=== PATIENT | female | born 1935 | race Caucasian/White ===

== ENCOUNTER 2016-11-08 11:33 | Emergency (ER) | payer MEDICARE, OTHER ==
[2016-11-08 11:45] VITALS: BP 176/81
[2016-11-08] MEDS ORDERED: Sodium Chloride 0.9% 5 ML Syringe FLUSH PRN (12:05)
--- NOTE | 2016-11-08 12:29 | EDM.PDOC ---
ED HPI GENERAL MEDICAL PROBLEM - General Chief Complaint: General Stated Complaint: L ARM PAIN,ELEVATED BP Time Seen by Provider: 11/08/16 12:22 Source of Information: Reports: Patient History Limitations: Reports: No Limitations - History of Present Illness INITIAL COMMENTS - FREE TEXT/NARRATIVE: PT STATES SHE HAS FELT WEAK OVER PAST FEW DAYS AND DEVELOPED HEADACHE AND SOME BLURRY VISION 2 DAYS AGO THAT HAS PERSISTED. JORGE LOCATED AT FOREHEAD AND DESCRIBED ACHING. BP FOUND TO BE ELEVATED TODAY. DOES NOT TYPICALLY GET HEADACHES. DENIES FEVER, FALL, HEAD INJURY, FACIAL NUMBNESS, CP, SOB, OR N/V. Onset: Gradual Duration: Day(s): Location: Reports: Head Quality: Reports: Ache Severity: Mild Improves with: Reports: None Worsens with: Reports: None Associated Symptoms: Reports: Headaches, Weakness. Denies: Chest Pain, Diaphoresis, Fever/Chills, Nausea/Vomiting, Shortness of Breath, Syncope - Related Data Allergies Allergy/AdvReac Type Severity Reaction Status Date / Time codeine Allergy Rash Verified 11/08/16 11:55 minocycline Allergy Cannot Verified 11/08/16 11:55 Remember Penicillins Allergy Rash Verified 11/08/16 11:55 METAL Allergy Rash Uncoded 11/08/16 11:55 Home Meds: Home Meds Aspirin [Halfprin] 81 mg PO DAILY 01/23/14 [History] Cholecalciferol (Vitamin D3) [Vitamin D-3] 2,000 units PO DAILY 01/23/14 [ History] Donepezil HCl [Aricept] 20 mg PO DAILY 01/23/14 [History] Lactobacillus Combination No.4 [Probiotic] 4 mg PO DAILY 01/23/14 [History] Pramipexole Di-HCl [Mirapex] 1.5 mg PO ACBED 01/23/14 [History] Primidone [Mysoline] 150 mg PO BID 01/23/14 [History] Propranolol [Inderal LA] 60 mg PO BEDTIME 01/23/14 [History] Colestipol [Colestipol HCl] 2 gm PO BID 11/08/16 [History] Cyanocobalamin (Vitamin B-12) [B-12] 500 mcg PO DAILY 11/08/16 [History] Furosemide [Lasix] 20 mg PO DAILY 11/08/16 [History] Ketoconazole [Nizoral 2% Shampoo] 1 applic TOP DAILY 11/08/16 [History] Loperamide [Imodium] 2 mg PO DAILY 11/08/16 [History] Mirtazapine [Remeron] 30 mg PO BEDTIME 11/08/16 [History] Vit A/Vit C/Vit E/Zinc/Copper [Preservision Areds Softgel] 1 cap PO BID [History] Past Medical History HEENT History: Reports: Cataract, Macular Degeneration, Other (See Below) Other HEENT History: myopia Cardiovascular History: Reports: Heart Murmur, High Cholesterol, Hypertension Gastrointestinal History: Reports: Other (See Below) Other Gastrointestinal History: lymphocytic colitis Musculoskeletal History: Reports: Arthritis, Osteoarthritis, Other (See Below) Other Musculoskeletal History: knee pain, bilateral leg pain Neurological History: Reports: Other (See Below) Other Neuro History: cognitive dysfunction,essential tremors, restless leg syndrome. Psychiatric History: Reports: Depression Endocrine/Metabolic History: Reports: Osteopenia Hematologic History: Reports: Other (See Below) Other Hematologic History: elevated ferritin Dermatologic History: Reports: Other (See Below) Other Dermatologic History: seborrheic keratoses - Past Surgical History Head Surgeries/Procedures: Reports: None HEENT Surgical History: Reports: Cataract Surgery Cardiovascular Surgical History: Reports: None Musculoskeletal Surgical History: Reports: Arthroscopic Knee, Other (See Below) Social & Family History - Family History Family Medical History: Noncontributory - Tobacco Use Smoking Status *Q: Never Smoker Second Hand Smoke Exposure: No - Caffeine Use Caffeine Use: Reports: Coffee - Alcohol Use Days Per Week of Alcohol Use: 7 Number of Drinks Per Day: 1 Total Drinks Per Week: 7 - Recreational Drug Use Recreational Drug Use: No ED ROS GENERAL - Review of Systems Review Of Systems: ROS reveals no pertinent complaints other than HPI. Constitutional: Reports: No Symptoms HEENT: Reports: No Symptoms Respiratory: Reports: No Symptoms Cardiovascular: Reports: No Symptoms Endocrine: Reports: No Symptoms GI/Abdominal: Reports: Diarrhea (OF CHRONIC NATURE) : Reports: No Symptoms Musculoskeletal: Reports: No Symptoms Skin: Reports: No Symptoms Neurological: Reports: Headache, Weakness. Denies: Numbness, Pre-Existing Deficit, Syncope, Tingling, Trouble Speaking Psychiatric: Reports: No Symptoms Hematologic/Lymphatic: Reports: No Symptoms Immunologic: Reports: No Symptoms ED EXAM, GENERAL - Physical Exam Exam: See Below Exam Limited By: No Limitations General Appearance: Alert, WD/WN, No Apparent Distress Eye Exam: Bilateral Eye: Normal Inspection Nose: Normal Inspection Throat/Mouth: Normal Inspection, Normal Oropharynx, No Airway Compromise Head: Atraumatic, Normocephalic Neck: Normal Inspection, Supple Respiratory/Chest: No Respiratory Distress, Lungs Clear, Normal Breath Sounds Cardiovascular: Regular Rate, Rhythm, Diastolic Murmur GI/Abdominal: Normal Bowel Sounds, Soft, Non-Tender Back Exam: Normal Inspection. No: CVA Tenderness (L), CVA Tenderness (R) Extremities: Normal Inspection, No Pedal Edema Neurological: Alert, Oriented, CN II-XII Intact, Normal Cognition, No Motor/ Sensory Deficits Psychiatric: Normal Affect, Normal Mood Skin Exam: Warm, Dry, Intact, Normal Color, No Rash Course - Vital Signs Last Recorded V/S: Last Vital Signs Temp 98 F 11/08/16 11:40 Pulse 83 11/08/16 11:40 Resp 22 H 11/08/16 11:40 BP 176/81 H 11/08/16 11:40 Pulse Ox 93 L 11/08/16 11:40 - Orders/Labs/Meds Orders: Active Orders 24 hr Category Date Time Status Peripheral IV Care [RC] . DIRECTED Care 11/08/16 12:05 Active Head wo Cont [CT] Stat Exams 11/08/16 12:22 Ordered BASIC METABOLIC PANEL,BMP [CHEM] Stat Lab 11/08/16 12:00 Received COMPREHENSIVE METABOLIC PN,CMP [CHEM] Stat Lab 11/08/16 12:22 Ordered URINALYSIS W/MICROSCOPIC [UA W/MICROSCOPIC] [URIN] Stat Lab 11/08/16 12:04 Uncollected Sodium Chloride 0.9% [Syrex Flush] Med 11/08/16 12:05 Active 5 ml FLUSH Q8HR PRN Peripheral IV Insertion Adult [OM.PC] Routine Oth 11/08/16 12:05 Ordered Medication Orders Sodium Chloride (Syrex Flush) 5 ml FLUSH Q8HR PRN PRN Reason: Keep Vein Open Labs: Laboratory Tests 11/08/16 Range/Units 12:00 WBC 4.3 L (5.0-10.0) 10^3/uL RBC 3.90 (3.80-5.50) 10^6/uL Hgb 11.9 L (12.0-16.0) g/dL Hct 40.6 (37.0-47.0) % MCV 104.0 H (82.0-92.0) fL MCH 30.4 (27.0-31.0) pg MCHC 29.2 L (32.0-36.0) g/dL RDW 13.8 (11.5-14.5) % Plt Count 164 (150-300) 10^3/uL MPV 7.2 L (7.4-10.4) fL Neut % (Auto) 56.0 (50.0-70.0) % Lymph % (Auto) 31.0 (20.0-40.0) % Tripp % (Auto) 8.4 H (2.0-8.0) % Eos % (Auto) 4.2 H (1.0-3.0) % Baso % (Auto) 0.4 (0.0-1.0) % Neut # (Auto) 2.4 L (2.5-7.0) 10^3/uL Lymph # (Auto) 1.3 (1.0-4.0) 10^3/uL Tripp # (Auto) 0.4 (0.1-0.8) 10^3/uL Eos # (Auto) 0.2 (0.1-0.3) 10^3/uL Baso # (Auto) 0.0 (0.0-0.1) 10^3/uL Meds: Medications Generic Name Dose Route Start Last Admin Trade Name Freq PRN Reason Stop Dose Admin Sodium Chloride 5 ml 11/08/16 12:05 Syrex Flush FLUSH Q8HR PRN Keep Vein Open - Radiology Interpretation Free Text/Narrative:: ct head shows no acute findings CT Results Date: 11/08/16 - Re-Assessments/Exams Free Text/Narrative Re-Assessment/Exam: 11/08/16 13:30 PT AFEBRILE, NONTOXIC APPEARING, VSS, BP 140'S /70'S, JORGE RESOLVED Departure - Departure Time of Disposition: 13:31 Disposition: Home, Self-Care 01 Clinical Impression: Hypertension screening Headache Qualifiers: Headache type: unspecified Headache chronicity pattern: acute headache Intractability: not intractable Qualified Code(s): R51 - Headache Hypertension Qualifiers: Hypertension type: unspecified Qualified Code(s): I10 - Essential (primary) hypertension - Discharge Information Instructions: Hypertension, General Headache Without Cause, [id number] Referrals: Shobha Wood, [employer] [Primary Care Provider] - Additional Instructions: FOLLOW UP AT [facility] IN 1- 2 DAYS. RETURN TO ER SOONER IF SYMPTOMS CONTINUE - My Orders Last 24 Hours: My Active Orders 11/08/16 12:00 BASIC METABOLIC PANEL,BMP [CHEM] Stat 11/08/16 12:04 URINALYSIS W/MICROSCOPIC [UA W/MICROSCOPIC] [URIN] Stat 11/08/16 12:05 Peripheral IV Care [RC] . DIRECTED Sodium Chloride 0.9% [Syrex Flush] 5 ml FLUSH Q8HR PRN Peripheral IV Insertion Adult [OM.PC] Routine 11/08/16 12:22 Head wo Cont [CT] Stat COMPREHENSIVE METABOLIC PN,CMP [CHEM] Stat - Assessment/Plan Last 24 Hours: My Active Orders 11/08/16 12:00 BASIC METABOLIC PANEL,BMP [CHEM] Stat 11/08/16 12:04 URINALYSIS W/MICROSCOPIC [UA W/MICROSCOPIC] [URIN] Stat 11/08/16 12:05 Peripheral IV Care [RC] . DIRECTED Sodium Chloride 0.9% [Syrex Flush] 5 ml FLUSH Q8HR PRN Peripheral IV Insertion Adult [OM.PC] Routine 11/08/16 12:22 Head wo Cont [CT] Stat COMPREHENSIVE METABOLIC PN,CMP [CHEM] Stat Assessment:: HTN HEADACHE Plan: F/U WITH PCP IN 2 DAYS
[2016-11-08 12:53] LABS: CHLORIDE,CL 103 mmol/L (98-115); SODIUM,NA 140 mmol/L (136-145)
[2016-11-08] MEDS ORDERED: Ketorolac 30 MG/ML SDV IVPUSH ONE (13:26)
== END 2016-11-08 13:42 | disposition home or self-care (01) ==
LOC: KA.ED 11:33
DX: I10 Essential (primary) hypertension (principal); R51 Headache; E78.00 Pure hypercholesterolemia, unspecified; M19.90 Unspecified osteoarthritis, unspecified site; Z79.82 Long term (current) use of aspirin; Z79.899 Other long term (current) drug therapy
CPT/HCPCS: 70450; 80053; 81001; 85025; 96374; 99284; J1885; 99283

== ENCOUNTER 2017-01-13 23:46 | Inpatient (IN) | payer MEDICARE, OTHER ==
--- NOTE | 2017-01-13 23:58 | EDM.PDOC ---
ED HPI GENERAL MEDICAL PROBLEM - General Chief Complaint: General Stated Complaint: fall Time Seen by Provider: 01/13/17 23:51 Source of Information: Reports: Patient, EMS, EMS Notes Reviewed History Limitations: Reports: No Limitations - History of Present Illness INITIAL COMMENTS - FREE TEXT/NARRATIVE: PATIENT IS A 81-YEAR-OLD FEMALE WHO PRESENTS TO THE EMERGENCY DEPARTMENT VIA EMS WITH A COMPLAINT OF LEFT HIP PAIN. PATIENT RESIDES IN [facility]. PATIENT STATES THAT SHE SLIPPED ON CARPET AND FELL DOWN 3 STAIRS. SHE ENDED UP ON LANDING BETWEEN 2 STAIRCASES. PATIENT WAS ABLE TO CRAWL BACK UP TO 3 STAIRS AND INTO HER APARTMENT, WHICH IS A SHORT DISTANCE AWAY. PATIENT THEN GOT INTO BED, BUT PAIN IN THE LEFT HIP PERSISTED, SO SHE CONTACTED NURSING ASSISTANCE. NURSING STAFF WAS ABLE TO ACCESS APARTMENT, EVALUATE PATIENT, AND CONTACT EMS. PATIENT DENIES SYNCOPAL EPISODE, HEAD INJURY , NECK PAIN, CHEST PAIN, SHORTNESS OF BREATH, NAUSEA, VOMITING, OR ANY OTHER PAIN OR INJURY OTHER THAN LEFT HIP. Onset: Today Onset Date: 01/13/17 Onset Time: 21:00 Duration: Hour(s): Location: Reports: Pelvis, Lower Extremity, Left Quality: Reports: Ache, Throbbing Severity: Mild Improves with: Reports: None Worsens with: Reports: Movement Context: Reports: Trauma Associated Symptoms: Reports: No Other Symptoms - Related Data Allergies Allergy/AdvReac Type Severity Reaction Status Date / Time codeine Allergy Rash Verified 01/13/17 23:59 minocycline Allergy Cannot Verified 01/13/17 23:59 Remember Penicillins Allergy Rash Verified 01/13/17 23:59 ear drops Allergy Rash Uncoded 01/13/17 23:59 metal Allergy Rash Uncoded 01/13/17 23:59 ED ROS GENERAL - Review of Systems Review Of Systems: ROS reveals no pertinent complaints other than HPI. Constitutional: Reports: No Symptoms HEENT: Reports: No Symptoms Respiratory: Reports: No Symptoms Cardiovascular: Reports: No Symptoms Endocrine: Reports: No Symptoms GI/Abdominal: Reports: No Symptoms : Reports: No Symptoms Musculoskeletal: Reports: Leg Pain (LEFT HIP). Denies: Neck Pain, Back Pain Skin: Reports: No Symptoms Neurological: Reports: No Symptoms Psychiatric: Reports: No Symptoms Hematologic/Lymphatic: Reports: No Symptoms Immunologic: Reports: No Symptoms ED EXAM, GENERAL - Physical Exam Exam: See Below Exam Limited By: No Limitations General Appearance: Alert, WD/WN, No Apparent Distress Eye Exam: Bilateral Eye: Normal Inspection Nose: Normal Inspection, No Blood Throat/Mouth: Normal Inspection, Normal Oropharynx, No Airway Compromise Head: Atraumatic, Normocephalic Neck: Normal Inspection, Supple, Non-Tender, Full Range of Motion Respiratory/Chest: No Respiratory Distress, Lungs Clear, Normal Breath Sounds, No Accessory Muscle Use, Chest Non-Tender Cardiovascular: Regular Rate, Rhythm, No Murmur GI/Abdominal: Normal Bowel Sounds, Soft, Non-Tender Back Exam: Normal Inspection. No: CVA Tenderness (L), CVA Tenderness (R) Extremities: No Pedal Edema, Normal Capillary Refill, Leg Pain (LEFT HIP/no ecchymosis, edema, erythema, extremity shortening or rotation, or deformity noted.) Neurological: Alert, Oriented, CN II-XII Intact, Normal Cognition, No Motor/ Sensory Deficits Psychiatric: Normal Affect, Normal Mood Skin Exam: Warm, Dry, Intact, Normal Color, No Rash, Ecchymosis (RIGHT MEDIAL MALLEOLUS) Course - Orders/Labs/Meds Orders: Active Orders 24 hr Category Date Time Status Hip Min 2V or 3V Lt [CR] Stat Exams 01/13/17 23:52 Ordered Pelvis 1V or 2V [CR] Stat Exams 01/13/17 23:52 Ordered - Radiology Interpretation Free Text/Narrative:: X-RAY OF RIGHT ANKLE, LEFT HIP AND PELVIS NEGATIVE FOR ACUTE FRACTURE - Re-Assessments/Exams Free Text/Narrative Re-Assessment/Exam: 01/14/17 01:25 PATIENT AFEBRILE, NONTOXIC APPEARING, VITAL SIGNS STABLE. PAIN RELIEVED WITH MORPHINE. PATIENT ABLE TO STAND BUT AMBULATION IS UNCOMFORTABLE. CASE DISCUSSED WITH DR. AMALIA SIMON AND THE PATIENT WILL BE ADMITTED FOR OBSERVATION. Departure - Departure Time of Disposition: 01:27 Disposition: Refer to Observation Condition: Fair Clinical Impression: Fall (on) (from) other stairs and steps, initial encounter Contusion of hip Qualifiers: Encounter type: initial encounter Laterality: left Qualified Code(s): S70.02XA - Contusion of left hip, initial encounter - Discharge Information - My Orders Last 24 Hours: My Active Orders 01/13/17 23:52 Hip Min 2V or 3V Lt [CR] Stat Pelvis 1V or 2V [CR] Stat - Assessment/Plan Last 24 Hours: My Active Orders 01/13/17 23:52 Hip Min 2V or 3V Lt [CR] Stat Pelvis 1V or 2V [CR] Stat Assessment:: FALL, LEFT HIP PAIN.
[2017-01-14] MEDS ORDERED: Morphine 2 MG/ML Syringe IVPUSH ONE (00:26)
[2017-01-14] MEDS ORDERED: Ondansetron 4 MG/2 ML SDV IVPUSH ONE (00:26)
[2017-01-14] MEDS: Morphine 2 MG/ML Syringe IVPUSH PRN ×2 (08:52→12:46)
--- NOTE | 2017-01-14 11:53 | PCM.HP ---
H&P History of Present Illness - General Date of Service: 01/14/17 Admit Problem/Dx: Pubic rami fracture, inability to ambulate Source of Information: Patient, Family, Old Records, Provider (Jose Calvert, ED provider) History Limitations: Reports: No Limitations - History of Present Illness Initial Comments - Free Text/Narative: Ms. Rosario is an 81yoF who was walking down a flight of stairs in her home at [facility] in [place] and sustained a fall down three stairs on 01/13/17 around 2100. She immediately complained of pain in her left hip and right anklem but was able to crawl back up the three stairs into her apartment and got into bed. Due to persistent pain, she contacted nursing staff who called EMS and transported her to [facility]. In the ED, she continued to report pain in the left hip and right ankle. Initial XR of pelvis and L hip were read as "Left acetabulum and proximal femur unremarkable. Unable to exclude nondisplaced fracture inferior pubic ramus." XR ankle consistent with sprain. She was given morphine for pain and due to living alone and being unable to ambulate, was admitted in observation status for monitoring. This morning, I received the finalized reports for the XR of pelvis and L hip showing "Left sided pubic rami fractures, age indeterminate; correlation with physical exam would be helpful." Upon evaluation of her this morning, she continues to complain of significant pain in her left hip region and points to her lower buttock. Exacerbated by sitting on her left buttock, including on the toilet. Also having some right ankle pain, but feels this is improved since last night. Otherwise feels stiff and sore, but no other localized areas of pain or decreased range of motion. Denies any numbness or tingling. She denied any hitting of her head or LOC associated with the fall yesterday. Left Hip Pain Score (Numeric/FACES): 3 - Related Data Allergies/Adverse Reactions: Allergies Allergy/AdvReac Type Severity Reaction Status Date / Time codeine Allergy Rash Verified 01/13/17 23:59 minocycline Allergy Cannot Verified 01/13/17 23:59 Remember Penicillins Allergy Rash Verified 01/13/17 23:59 ear drops Allergy Rash Uncoded 01/13/17 23:59 metal Allergy Rash Uncoded 01/13/17 23:59 Home Medications: Home Meds Aspirin [Adult Low Dose Aspirin EC] 81 mg PO DAILY 01/14/17 [History] Calcium Carbonate [Calcium] 600 mg PO DAILY 01/14/17 [History] Cholecalciferol (Vitamin D3) [Vitamin D] 2,000 unit PO DAILY 01/14/17 [History] Colestipol HCl [Colestipol HCl] 1 gm PO BID 01/14/17 [History] Cyanocobalamin (Vitamin B12) [Vitamin B12] 500 mg PO DAILY 01/14/17 [History] Donepezil HCl 20 mg PO DAILY 01/14/17 [History] Furosemide 20 mg PO DAILY 01/14/17 [History] L.acidoph,Paracasei, B.lactis [Probiotic] 1 each PO DAILY 01/14/17 [History] Loperamide [Imodium] 4 mg PO DAILY 01/14/17 [History] Mirtazapine 30 mg PO BEDTIME 01/14/17 [History] [place]-3/DHA/Epa/Fish Oil [Fish Oil 1,000 mg Softgel] 1 each PO DAILY 01/14/17 [ History] Pramipexole Di-HCl [Mirapex] 1.5 mg PO DAILY 01/14/17 [History] Primidone 150 mg PO BID 01/14/17 [History] Propranolol [Inderal LA] 60 mg PO DAILY 01/14/17 [History] Vit A/Vit C/Vit E/Zinc/Copper [Preservision Areds Softgel] 1 tab PO DAILY [History] Past Medical History HEENT History: Reports: Impaired Vision Cardiovascular History: Reports: High Cholesterol, Hypertension Gastrointestinal History: Reports: Chronic Diarrhea HEAD OF DRAMA History: Reports: Other OB/BYN History: 3 children Neurological History: Reports: Other (See Below) Other Neuro History: Restless Leg Syndrome, Essential Tremor Psychiatric History: Reports: Depression, Other (See Below) Other Psychiatric History: Mild Cognitive Impairment Endocrine/Metabolic History: Reports: Osteoporosis - Past Surgical History Cardiovascular Surgical History: Reports: None GI Surgical History: Reports: Other (See Below) Other GI Surgeries/Procedures: stimulation implant Social & Family History - Family History Family Medical History: Unobtainable - Tobacco Use Smoking Status *Q: Never Smoker Second Hand Smoke Exposure: No - Caffeine Use Caffeine Use: Reports: Coffee - Alcohol Use Days Per Week of Alcohol Use: 7 Number of Drinks Per Day: 1 Total Drinks Per Week: 7 - Recreational Drug Use Recreational Drug Use: No H&P Review of Systems - Review of Systems: Review Of Systems: See Below General: Denies: Fever, Chills, Decreased Appetite, Weight Loss, Weight Gain HEENT: Denies: Hearing Changes, Vertigo, Visual Changes Pulmonary: Denies: Shortness of Breath, Pleuritic Chest Pain, Cough Cardiovascular: Denies: Chest Pain, Palpitations, Edema Gastrointestinal: Reports: Diarrhea. Denies: Abdominal Pain, Constipation, Nausea Genitourinary: Denies: Dysuria, Burning, Pain Musculoskeletal: Reports: Leg Pain, Foot Pain, Muscle Pain. Denies: Neck Pain, Shoulder Pain, Arm Pain, Back Pain, Hand Pain Skin: Denies: Rash, Erythema, Wound Psychiatric: Denies: Confusion, Depression, Anxiety Neurological: Reports: Tremors, Difficulty Walking, Gait Disturbance. Denies: Confusion, Dizziness, Headache, Numbness, Paresthesia, Syncope, Tingling, Change in Speech Exam - Exam Exam: See Below - Vital Signs Vital Signs: Last Vital Signs Temp 37.2 C 01/14/17 07:00 Pulse 87 01/14/17 07:00 Resp 16 01/14/17 07:00 BP 115/58 L 01/14/17 07:00 Pulse Ox 94 L 01/14/17 07:00 Weight: 75.16 kg - Exam Physical Exam Comments:: GENERAL: Elderly white female lying in hospital bed in no acute distress. HEENT: Normocephalic, atraumatic. Conjunctiva clear, pupils equal round and reactive to light, extraocular movements intact. Nares patent without discharge. Mucous membranes moist, posterior pharynx unremarkable. NECK: Supple, no masses. CV: Regular rate and rhythm, no murmurs, rubs, or gallops. 2+ radial and pedal pulses. PULMONARY: Normal effort, clear to auscultation bilaterally, no wheezes, rales, or rhonchi. ABDOMEN: Positive bowel sounds, soft, nontender, nondistended. EXTREMITIES: No edema, cyanosis, or clubbing. MUSCULOSKELETAL: Lower extremities in line without shortening or rotation. Tenderness overlying left inferior pubic rami and medial right ankle. Remainder of lower extremities without localized bony tenderness to palpation. No midline spine tenderness. Bilateral shoulders, elbows, and wrists with grossly normal ROM and no tenderness to palpation. NEUROLOGICAL: No obvious deficits. DERMATOLOGIC: Ecchymosis overlying left lateral knee. PSYCHIATRIC: Alert, interactive, appropriate affect. - Patient Data Result Diagrams: 01/14/17 13:29 *Q Meaningful Use (ADM) - VTE *Q VTE Criteria *Q: - Stroke *Q Stroke Criteria *Q: - AMI *Q AMI Criteria *Q: Problem List Initiated/Reviewed/Updated: Yes Orders Last 24hrs: Active Orders 24 hr Category Date Time Status Consult to Physical Therapy [PT Evaluation and Cons 01/14/17 11:46 Active Treatment] [CONS] Routine Aspirin [Halfprin] Med 01/15/17 09:00 Ordered 81 mg PO DAILY Calcium Carbonate Med 01/15/17 09:00 Ordered 600 mg PO DAILY Cholecalciferol (Vitamin D3) [Vitamin D] Med 01/15/17 09:00 Ordered 2,000 unit PO DAILY Colestipol HCl Med 01/14/17 21:00 Ordered 1 gm PO BID Cyanocobalamin (Vitamin B12) [Vitamin B12] Med 01/15/17 09:00 Ordered 500,000 mcg PO DAILY Donepezil [Aricept] Med 01/15/17 09:00 Ordered 20 mg PO DAILY Furosemide [Lasix] Med 01/14/17 12:00 Ordered 20 mg PO DAILY Mirtazapine [Mirtazapine] Med 01/14/17 21:00 Ordered 30 mg PO BEDTIME Pramipexole Di-HCl [Mirapex] Med 01/15/17 21:00 Ordered 1.5 mg PO DAILY Primidone [Primidone] Med 01/14/17 21:00 Ordered 150 mg PO BID Propranolol [Inderal LA] Med 01/14/17 12:00 Ordered 60 mg PO DAILY Medication Orders Hydrocodone Bitart/Acetaminophen (Marion 325-5 Mg) 1 tab PO Q4H PRN PRN Reason: Pain Aspirin (Halfprin) 81 mg PO DAILY [facility] Cyanocobalamin (Vitamin B12) 500,000 mcg PO DAILY [facility] Donepezil HCl (Aricept) 20 mg PO DAILY [facility] Furosemide (Lasix) 20 mg PO DAILY [facility] Morphine Sulfate (Morphine) 2 mg IVPUSH Q2H PRN PRN Reason: Pain (severe 7-10) Last Admin: 01/14/17 08:52 Dose: 2 mg Non-Formulary Medication (Calcium Carbonate) 600 mg PO DAILY [facility] Non-Formulary Medication (Cholecalciferol (Vitamin D3) [Vitamin D]) 2,000 unit PO DAILY [facility] Non-Formulary Medication (Colestipol Hcl) 1 gm PO BID [facility] Non-Formulary Medication (Mirtazapine [Mirtazapine]) 30 mg PO BEDTIME [facility] Non-Formulary Medication (Pramipexole Di-Hcl [Mirapex]) 1.5 mg PO DAILY [facility] Non-Formulary Medication (Primidone [Primidone]) 150 mg PO BID [facility] Propranolol HCl (Inderal La) 60 mg PO DAILY [facility] Assessment/Plan Comment:: Ms. Rosario is an 81yoF who sustained a fall on the evening of 01/13/17 now found to have left pubic rami fractures and associated pain and inability to ambulate. She was initially admitted under observation status for monitoring and pain management prior to the XR showing the fractures, but will now be changed to inpatient status given her fractures and inability to ambulate requiring pain management, physical therapy, and discharge planning as she lives alone in an assisted living facility. # Left pubic rami fractures # Right ankle sprain Sustained on 01/13/17 in fall down 3 stairs in her home at [facility] in [place]. Nondisplaced fractures without neurovascular compromise or other indication for orthopedic referral. Will proceed with pain management with [place] as needed with morphine for breakthrough. Will use ice to affected areas. Physical therapy and mental health social worker consults placed to assess physical rehabilitation needs and assist with discharge planning. Chronic conditions: # HTN: Stable. Continue furosemide. # Chronic diarrhea: Stable. Continue colestipol and loperamide as needed instead of scheduled in the setting of opiate use. # HLD: Continue ASA. # B12 deficiency: Continue B12. # Osteoporosis: Continue Ca/D. # Essential tremor: Stable. Continue propranolol and primidone. # RLS: Stable. Continue pramipexole. # Depression: Stable. Continue mirtazepine. # MCI: Stable. Continue donepezil. Hospitalization details: # FEN: No IVF. Check BMP. Regular diet. # PPX: Enoxaparin for DVT ppx given moderate risk. Melatonin for delirium ppx. # Code status: FULL. # Emergency contact: Son. # Disposition: Admit to inpatient status for above issues. Anticipate at least 2 midnight stay for pain management and ambulation assistance.
[2017-01-14] MEDS ORDERED: Propranolol 60 MG Cap.ER PO SCH (12:00)
[2017-01-14] MEDS: Furosemide 20 MG Tab PO SCH (12:46)
[2017-01-14] MEDS ORDERED: Loperamide 2 MG Cap PO PRN (12:58)
[2017-01-14 14:02] LABS: CHLORIDE,CL 103 mmol/L (98-115); SODIUM,NA 137 mmol/L (136-145)
[2017-01-14] MEDS: Acetaminophen/HYDROcodone 325-5 MG Tab PO PRN ×2 (16:36→21:35)
[2017-01-14] MEDS: COLESTIPOL 1 GM PO SCH (21:03)
[2017-01-14] MEDS: PRIMIDONE 50 MG PO SCH (21:05)
[2017-01-14] MEDS: Melatonin 3 MG Tab PO SCH (21:08)
[2017-01-14] MEDS: Mirtazapine 15 MG Tab PO SCH (21:08)
[2017-01-15] MEDS: Acetaminophen/HYDROcodone 325-5 MG Tab PO PRN ×2 (06:27→10:27)
[2017-01-15] MEDS: Pramipexole 0.5 MG Tab PO SCH (08:21)
[2017-01-15] MEDS: Cyanocobalamin (Vitamin B12) 500 MCG Tab PO SCH (08:22)
[2017-01-15] MEDS: Aspirin 81 MG Tab.EC PO SCH (08:22)
[2017-01-15] MEDS: Furosemide 20 MG Tab PO SCH (08:22)
[2017-01-15] MEDS: Cholecalciferol (Vitamin D3) 1,000 Unit Tab PO SCH (08:22)
[2017-01-15] MEDS: Calcium Carbonate 500 MG Tab.Chew PO SCH (08:22)
[2017-01-15] MEDS: Donepezil 10 MG Tab PO SCH (08:22)
[2017-01-15] MEDS: Enoxaparin 30 MG/0.3 ML Syringe SUBCUT SCH (08:25)
[2017-01-15] MEDS: Propranolol 80 MG Cap.ER PO SCH (08:25)
[2017-01-15] MEDS: COLESTIPOL 1 GM PO SCH (08:27)
[2017-01-15] MEDS: PRIMIDONE 50 MG PO SCH ×2 (08:27→21:01)
[2017-01-15] MEDS ORDERED: Cyanocobalamin (Vitamin B12) 500 MCG Tab PO SCH (09:00)
--- NOTE | 2017-01-15 12:00 | PCM.PN ---
- General Info Date of Service: 01/15/17 Admission Dx/Problem (Free Text): Pubic rami fracture, inability to ambulate Subjective Update: Ms. Rosario has had interval improvement in pain since admission. Pain continues to be located in left buttock and mildly in right ankle. Using ice with good symptomatic improvement as well as [place]. Not needing morphine for breakthrough pain in the last 24hrs. She was able to be up in the chair and even ambulate a few steps earlier today. No new concerns have arisen. Nursing attempted oxygen liberation, but she continues to require 2lpm via nasal cannula. - Patient Data Vitals - Most Recent: Last Vital Signs Temp 37.2 C 01/15/17 06:55 Pulse 81 01/15/17 08:25 Resp 16 01/15/17 06:55 BP 108/64 01/15/17 08:25 Pulse Ox 94 L 01/15/17 06:55 Weight - Most Recent: 75.16 kg I&O - Last 24 Hours: Intake & Output 01/14/17 01/15/17 01/15/17 22:59 06:59 14:59 Intake Total 200 50 Output Total 100 Balance 100 50 Lab Results Last 24 Hours: Laboratory Results - last 24 hr 01/14/17 Range/Units 13:29 Sodium 137 (136-145) mmol/L Potassium 3.8 (3.3-5.3) mmol/L Chloride 103 (98-115) mmol/L Carbon Dioxide 26.9 (21.0-32.0) mmol/L BUN 18 (6-25) mg/dL Creatinine 0.88 (0.51-1.17) mg/dL Est Cr Clr Drug Dosing 36.01 mL/min Estimated GFR (MDRD) > 60 mL/min Glucose 147 H (70-110) mg/dL Calcium 8.2 L (8.7-10.3) mg/dL Med Orders - Current: Current Medications Acetaminophen (Tylenol Extra Strength) 500 mg PO Q6H [facility] Hydrocodone Bitart/Acetaminophen ([place] 325-5 Mg) 1 tab PO Q4H PRN PRN Reason: Pain Last Admin: 01/15/17 10:27 Dose: 1 tab Aspirin (Halfprin) 81 mg PO DAILY [facility] Last Admin: 01/15/17 08:22 Dose: 81 mg Calcium Carbonate/Glycine (Tums) 500 mg PO DAILY [facility] Last Admin: 01/15/17 08:22 Dose: 500 mg Cholecalciferol (Vitamin D3) 2,000 units PO DAILY [facility] Last Admin: 01/15/17 08:22 Dose: 2,000 units Cyanocobalamin (Vitamin B12) 500 mcg PO DAILY [facility] Last Admin: 01/15/17 08:22 Dose: 500 mcg Docusate Sodium (Colace) 100 mg PO BID PRN PRN Reason: Constipation Donepezil HCl (Aricept) 20 mg PO DAILY [facility] Last Admin: 01/15/17 08:22 Dose: 20 mg Enoxaparin Sodium (Lovenox) 30 mg SUBCUT DAILY [facility] Last Admin: 01/15/17 08:25 Dose: 30 mg Furosemide (Lasix) 20 mg PO DAILY [facility] Last Admin: 01/15/17 08:22 Dose: 20 mg Loperamide HCl (Imodium) 4 mg PO DAILY PRN PRN Reason: Diarrhea Melatonin (Melatonin) 3 mg PO BEDTIME [facility] Last Admin: 01/14/17 21:08 Dose: 3 mg Mirtazapine (Remeron) 30 mg PO BEDTIME [facility] Last Admin: 01/14/17 21:08 Dose: 30 mg Primidone 50 Mg Tabs (*Pt Own Med*) 0 mg PO BID [facility] Last Admin: 01/15/17 08:27 Dose: 150 mg Pramipexole Dihydrochloride (Mirapex) 1.5 mg PO DAILY [facility] Last Admin: 01/15/17 08:21 Dose: 1.5 mg Propranolol HCl (Inderal La) 80 mg PO DAILY [facility] Last Admin: 01/15/17 08:25 Dose: 80 mg Discontinued Medications Cyanocobalamin (Vitamin B12) 500,000 mcg PO DAILY [facility] Morphine Sulfate (Morphine) 2 mg IVPUSH ONETIME ONE Stop: 01/14/17 00:27 Last Admin: 01/14/17 00:46 Dose: 2 mg Morphine Sulfate (Morphine) 2 mg IVPUSH Q2H PRN PRN Reason: Pain (severe 7-10) Last Admin: 01/14/17 12:46 Dose: 2 mg Colestipol 1 Gram (Tablets:*Pt Own Med*) 1 gm PO BID [facility] Last Admin: 01/15/17 08:27 Dose: Not Given Ondansetron HCl (Zofran) 4 mg IVPUSH ONETIME ONE Stop: 01/14/17 00:27 Last Admin: 01/14/17 00:47 Dose: 4 mg Propranolol HCl (Inderal La) 60 mg PO DAILY [facility] Last Admin: 01/14/17 14:40 Dose: Not Given - Exam Physical Findings Comments:: GENERAL: Elderly white female lying in hospital bed in no acute distress. HEENT: Normocephalic, atraumatic. Conjunctiva clear,. Nares patent without discharge. Mucous membranes moist. NECK: Supple, no masses. CV: Regular rate and rhythm, no murmurs, rubs, or gallops. 2+ radial and pedal pulses. PULMONARY: Normal effort, clear to auscultation bilaterally, no wheezes, rales, or rhonchi. ABDOMEN: Positive bowel sounds, soft, nontender, nondistended. EXTREMITIES: No edema, cyanosis, or clubbing. MUSCULOSKELETAL: Lower extremities in line without shortening or rotation. Tenderness overlying left inferior pubic rami and medial right ankle. Remainder of lower extremities without localized bony tenderness to palpation. NEUROLOGICAL: No obvious deficits. DERMATOLOGIC: Ecchymosis overlying left lateral knee and left medial ankle. PSYCHIATRIC: Alert, interactive, appropriate affect. - Problem List Review Problem List Initiated/Reviewed/Updated: Yes - My Orders Last 24 Hours: My Active Orders 01/14/17 11:46 Consult to Physical Therapy [PT Evaluation and Treatment] [CONS] Routine 01/14/17 12:00 Furosemide [Lasix] 20 mg PO DAILY 01/14/17 12:58 Loperamide [Imodium] 4 mg PO DAILY PRN 01/14/17 13:06 Consult to Rand Butting Machine Operator [CONS] Routine 01/14/17 13:07 Propranolol [Inderal LA] 80 mg PO DAILY 01/14/17 21:00 Melatonin 3 mg PO BEDTIME Mirtazapine [Remeron] 30 mg PO BEDTIME Primidone [Primidone] 0 mg PO BID 01/15/17 09:00 Aspirin [Halfprin] 81 mg PO DAILY Calcium Carbonate [Tums] 500 mg PO DAILY Cholecalciferol (Vitamin D3) [Vitamin D3] 2,000 units PO DAILY Cyanocobalamin (Vitamin B12) [Vitamin B12] 500 mcg PO DAILY Donepezil [Aricept] 20 mg PO DAILY Enoxaparin [Lovenox] 30 mg SUBCUT DAILY Pramipexole [Mirapex] 1.5 mg PO DAILY 01/15/17 11:51 Docusate Sodium [Colace] 100 mg PO BID PRN 01/15/17 11:53 Incentive Spirometry [RT Incentive Spirometry] [RC] ASDIRECTED 01/15/17 12:00 Acetaminophen [Tylenol Extra Strength] 500 mg PO Q6H - Plan Plan:: Ms. Rosario is an 81yoF who sustained a fall on the evening of 01/13/17 now found to have left pubic rami fractures and associated pain and inability to ambulate. She was initially admitted under observation status for monitoring and pain management prior to the XR showing the fractures, but changed to inpatient status given her fractures and inability to ambulate requiring pain management, physical therapy, and discharge planning as she lives alone in an assisted living facility. # Left pubic rami fractures # Right ankle sprain Sustained on 01/13/17 in fall down 3 stairs in her home at [facility] in [place]. Nondisplaced fractures without neurovascular compromise or other indication for orthopedic referral. Pain improved. Discontinue morphine. Will also schedule Tylenol and use [place] prn for breakthrough. Continue ice prn. Physical therapy and transition social worker consults pending to assess physical rehabilitation needs and assist with discharge planning. Chronic conditions: # HTN: Stable. Continue furosemide. # Chronic diarrhea: Currently with constipation, likely given narcotic analgesics. D/c colestipol and loperamide. Docusate 100mg BID prn. # HLD: Continue ASA. # B12 deficiency: Continue B12. # Osteoporosis: Continue Ca/D. # Essential tremor: Stable. Continue propranolol and primidone. # RLS: Stable. Continue pramipexole. # Depression: Stable. Continue mirtazepine. # MCI: Stable. Continue donepezil. Hospitalization details: # FEN: No IVF. Electrolytes normal. Regular diet. # PPX: Enoxaparin for DVT ppx given moderate risk. Melatonin for delirium ppx. # Code status: FULL. # Emergency contact: Son and daughter; daughter updated at bedside on rounds. # Disposition: Continue on inpatient status for above issues. Anticipate at least 1-2 more days of inpatient stay for pain management and ambulation assistance along with discharge planning.
[2017-01-15] MEDS: Acetaminophen 500 MG Tab PO SCH ×2 (12:05→18:03)
[2017-01-15] MEDS: Docusate Sodium 100 MG Cap PO PRN (12:05)
[2017-01-15] MEDS: Mirtazapine 15 MG Tab PO SCH (20:58)
[2017-01-15] MEDS: Melatonin 3 MG Tab PO SCH (20:58)
[2017-01-16] MEDS: Acetaminophen 500 MG Tab PO SCH ×6 (00:56→23:58)
[2017-01-16] MEDS: Cholecalciferol (Vitamin D3) 1,000 Unit Tab PO SCH (09:00)
[2017-01-16] MEDS: Donepezil 10 MG Tab PO SCH (09:00)
[2017-01-16] MEDS: Furosemide 20 MG Tab PO SCH (09:02)
[2017-01-16] MEDS: Aspirin 81 MG Tab.EC PO SCH (09:02)
[2017-01-16] MEDS: Cyanocobalamin (Vitamin B12) 500 MCG Tab PO SCH (09:02)
[2017-01-16] MEDS: Pramipexole 0.5 MG Tab PO SCH (09:03)
[2017-01-16] MEDS: Propranolol 80 MG Cap.ER PO SCH (09:04)
[2017-01-16] MEDS: Calcium Carbonate 500 MG Tab.Chew PO SCH (09:06)
[2017-01-16] MEDS: PRIMIDONE 50 MG PO SCH ×3 (09:06→20:22)
[2017-01-16] MEDS: Enoxaparin 30 MG/0.3 ML Syringe SUBCUT SCH (09:07)
[2017-01-16] MEDS: Acetaminophen/HYDROcodone 325-5 MG Tab PO PRN (09:26)
[2017-01-16] MEDS: Docusate Sodium 100 MG Cap PO PRN (09:29)
--- NOTE | 2017-01-16 11:07 | PCM.PN ---
- General Info Date of Service: 01/16/17 Admission Dx/Problem (Free Text): Pubic rami fracture, inability to ambulate Subjective Update: Ms. Rosario has had interval improvement in pain since admission. Pain continues to be located in left buttock and mildly in right ankle. Left buttock pain exacerbated by sitting for long periods of time and direct pressure to the area. Since Tylenol being scheduled, she has only used [place] 2 tablets in the last 24 hours. Using ice with good symptomatic improvement as well. Doing a small amount of ambulating, but is hesitant because of the pain. She had a bowel movement yesterday after receiving docusate. ROS: Denies fever, chills, chest pain, shortness of breath, dyspnea, cough, new sites of pain, numbness, tingling, paresthesias. No nursing concerns. - Patient Data Vitals - Most Recent: Last Vital Signs Temp 36.4 C 01/16/17 06:52 Pulse 70 01/16/17 09:04 Resp 20 01/16/17 06:52 BP 119/59 L 01/16/17 09:04 Pulse Ox 93 L 01/16/17 06:52 Weight - Most Recent: 75.16 kg I&O - Last 24 Hours: Intake & Output 01/15/17 01/16/17 01/16/17 22:59 06:59 14:59 Intake Total 420 100 Output Total 200 Balance 420 -100 Med Orders - Current: Current Medications Acetaminophen (Tylenol Extra Strength) 500 mg PO Q6H [facility] Last Admin: 01/16/17 05:46 Dose: 500 mg Hydrocodone Bitart/Acetaminophen ([place] 325-5 Mg) 1 tab PO Q4H PRN PRN Reason: Pain Last Admin: 01/16/17 09:26 Dose: 1 tab Aspirin (Halfprin) 81 mg PO DAILY [facility] Last Admin: 01/16/17 09:02 Dose: 81 mg Calcium Carbonate/Glycine (Tums) 500 mg PO DAILY [facility] Last Admin: 01/16/17 09:06 Dose: Not Given Cholecalciferol (Vitamin D3) 2,000 units PO DAILY [facility] Last Admin: 01/16/17 09:00 Dose: 2,000 units Cyanocobalamin (Vitamin B12) 500 mcg PO DAILY [facility] Last Admin: 01/16/17 09:02 Dose: 500 mcg Docusate Sodium (Colace) 100 mg PO BID PRN PRN Reason: Constipation Last Admin: 01/16/17 09:29 Dose: 100 mg Donepezil HCl (Aricept) 20 mg PO DAILY [facility] Last Admin: 01/16/17 09:00 Dose: 20 mg Enoxaparin Sodium (Lovenox) 30 mg SUBCUT DAILY [facility] Last Admin: 01/16/17 09:07 Dose: 30 mg Furosemide (Lasix) 20 mg PO DAILY [facility] Last Admin: 01/16/17 09:02 Dose: 20 mg Loperamide HCl (Imodium) 4 mg PO DAILY PRN PRN Reason: Diarrhea Melatonin (Melatonin) 3 mg PO BEDTIME [facility] Last Admin: 01/15/17 20:58 Dose: 3 mg Mirtazapine (Remeron) 30 mg PO BEDTIME [facility] Last Admin: 01/15/17 20:58 Dose: 30 mg Primidone 50 Mg Tabs (*Pt Own Med*) 3 each PO BID [facility] Last Admin: 01/16/17 09:13 Dose: Not Given Pramipexole Dihydrochloride (Mirapex) 1.5 mg PO DAILY [facility] Last Admin: 01/16/17 09:03 Dose: 1.5 mg Propranolol HCl (Inderal La) 80 mg PO DAILY [facility] Last Admin: 01/16/17 09:04 Dose: 80 mg Discontinued Medications Cyanocobalamin (Vitamin B12) 500,000 mcg PO DAILY [facility] Morphine Sulfate (Morphine) 2 mg IVPUSH ONETIME ONE Stop: 01/14/17 00:27 Last Admin: 01/14/17 00:46 Dose: 2 mg Morphine Sulfate (Morphine) 2 mg IVPUSH Q2H PRN PRN Reason: Pain (severe 7-10) Last Admin: 01/14/17 12:46 Dose: 2 mg Colestipol 1 Gram (Tablets:*Pt Own Med*) 1 gm PO BID [facility] Last Admin: 01/15/17 08:27 Dose: Not Given Primidone 50 Mg Tabs (*Pt Own Med*) 0 mg PO BID [facility] Last Admin: 01/16/17 09:06 Dose: 150 mg Ondansetron HCl (Zofran) 4 mg IVPUSH ONETIME ONE Stop: 01/14/17 00:27 Last Admin: 01/14/17 00:47 Dose: 4 mg Propranolol HCl (Inderal La) 60 mg PO DAILY [facility] Last Admin: 01/14/17 14:40 Dose: Not Given - Exam Physical Findings Comments:: GENERAL: Elderly white female sitting in bedside chair in no acute distress. HEENT: Normocephalic, atraumatic. Conjunctiva clear. Nares patent without discharge. Mucous membranes moist. NECK: Supple, no masses. CV: Regular rate and rhythm, no murmurs, rubs, or gallops. 2+ radial and pedal pulses. PULMONARY: Normal effort, clear to auscultation bilaterally, no wheezes, rales, or rhonchi. ABDOMEN: Positive bowel sounds, soft, nontender, nondistended. EXTREMITIES: No edema, cyanosis, or clubbing. MUSCULOSKELETAL: Lower extremities in line without shortening or rotation. Tenderness overlying left inferior pubic rami and medial right ankle. Remainder of lower extremities without localized bony tenderness to palpation. NEUROLOGICAL: No obvious deficits. DERMATOLOGIC: Ecchymosis overlying left anterior knee and left medial ankle, with interval improvement since yesterday PSYCHIATRIC: Alert, interactive, appropriate affect. - Problem List Review Problem List Initiated/Reviewed/Updated: Yes - My Orders Last 24 Hours: My Active Orders 01/15/17 11:51 Docusate Sodium [Colace] 100 mg PO BID PRN 01/15/17 11:53 Incentive Spirometry [RT Incentive Spirometry] [RC] ASDIRECTED 01/15/17 12:00 Acetaminophen [Tylenol Extra Strength] 500 mg PO Q6H 01/16/17 09:00 Patient's Own Medication [Ptom] 3 each PO BID - Plan Plan:: Ms. Rosario is an 81yoF who sustained a fall on the evening of 01/13/17 and found to have left pubic rami fractures and associated pain and inability to ambulate. She was initially admitted under observation status for monitoring and pain management prior to the XR showing the fractures, but changed to inpatient status given her fractures and inability to ambulate independently and requiring pain management, physical therapy, and discharge planning as she lives alone in an assisted living facility. # Left pubic rami fractures # Right ankle sprain Sustained on 01/13/17 in fall down 3 stairs in her home at [facility] in [place]. Nondisplaced fractures without neurovascular compromise or other indication for orthopedic referral. Pain improved with scheduled Tylenol and as needed Honobia. Continue ice prn. Physical therapy and social media marketer consults pending to assess physical rehabilitation needs and assist with discharge planning. Chronic conditions: # HTN: Stable. Continue furosemide. # Chronic diarrhea: Stable. Continue holding colestipol and loperamide in the setting of narcotic induced constipation and continue docusate 100mg BID prn. # HLD: Continue ASA. # B12 deficiency: Continue B12. # Osteoporosis: Continue Ca/D. # Essential tremor: Stable. Continue propranolol and primidone. # RLS: Stable. Continue pramipexole. # Depression: Stable. Continue mirtazepine. # MCI: Stable. Continue donepezil. Hospitalization details: # FEN: No IVF. Electrolytes normal. Regular diet. # PPX: Enoxaparin for DVT ppx given moderate risk. Melatonin for delirium ppx. # Code status: FULL. # Emergency contact: Son and daughter; daughter updated at bedside on rounds. # Disposition: Continue on inpatient status. Anticipate discharge to swing bed or other rehabilitation location tomorrow pending physical therapy evaluation and recommendations. Appreciate physical therapy and social media marketer assistance.
[2017-01-16] MEDS: Melatonin 3 MG Tab PO SCH (20:21)
[2017-01-16] MEDS: Mirtazapine 15 MG Tab PO SCH (20:21)
[2017-01-17] MEDS: Acetaminophen 500 MG Tab PO SCH ×2 (06:03→11:51)
[2017-01-17] MEDS: Donepezil 10 MG Tab PO SCH (08:34)
[2017-01-17] MEDS: Aspirin 81 MG Tab.EC PO SCH (08:34)
[2017-01-17] MEDS: Furosemide 20 MG Tab PO SCH (08:35)
[2017-01-17] MEDS: Calcium Carbonate 500 MG Tab.Chew PO SCH (08:35)
[2017-01-17] MEDS: Enoxaparin 30 MG/0.3 ML Syringe SUBCUT SCH (08:35)
[2017-01-17] MEDS: PRIMIDONE 50 MG PO SCH (08:35)
[2017-01-17] MEDS: Pramipexole 0.5 MG Tab PO SCH (08:35)
[2017-01-17] MEDS: Cyanocobalamin (Vitamin B12) 500 MCG Tab PO SCH (08:35)
[2017-01-17] MEDS: Cholecalciferol (Vitamin D3) 1,000 Unit Tab PO SCH (08:36)
[2017-01-17] MEDS: Propranolol 80 MG Cap.ER PO SCH (08:38)
[2017-01-17 09:00] VITALS: BP 151/75
--- NOTE | 2017-01-25 10:53 | PCM.DCSUM1 ---
Discharge Summary - Hospital Course Brief History: 81yoF was admitted to swing bed status after an acute care stay here at [facility] due to stable Left pubic rami fractures and right ankle sprain. She sustained an injury when she fell down 3 stairs at her [facility]. She was transported [facility] via EMS complaining of pain in her left hip and right ankle. Initial x-rays of pelvis and L hip were read as "Left acetabulum and proximal femur unremarkable. Unable to exclude non-displaced fracture inferior pubic ramus, however subsequent final reports of x-rays demonstrated the patient sustained a Left pubic rami fractures , however the age was indeterminate--however seem to correlate with her physical symptoms. No surgical intervention was needed however patient needed PT and due to her living status with [facility] she qualifies for swing bed therapy here at [facility]. - Discharge Data Discharge Date: 02/16/17 Discharge Disposition: DC/Tfer W/I Hosp To Swing 61 Condition: Good - Patient Summary/Data Complications: None Hospital Course: Her hospital course went well, she did sustain a right ankle sprain in which Luis Carlos bandage was placed to give her more stability. She had no mortise instability. Pain management was controlled with Astatula when necessary, he did have mild hypertension stage I he had been on lisinopril prior hospitalization however it was changed to ARB due to cough. Physical therapy consultation placed. Reviewed functional limitation assessment, goal is to have a minimum 80 % MMT WB, so she was placed in swing bed. - Discharge Plan Home Medications: Home Meds Aspirin [Halfprin] 81 mg PO DAILY 01/23/14 [History] Donepezil HCl [Aricept] 20 mg PO DAILY 01/23/14 [History] Lactobacillus Combination No.4 [Probiotic] 4 mg PO DAILY 01/23/14 [History] Colestipol [Colestipol HCl] 2 gm PO BID 11/08/16 [History] Cyanocobalamin (Vitamin B-12) [B-12] 500 mcg PO DAILY 11/08/16 [History] Ketoconazole [Nizoral 2% Shampoo] 1 applic TOP DAILY 11/08/16 [History] Loperamide [Imodium] 2 mg PO DAILY 11/08/16 [History] Calcium Carbonate [Calcium] 600 mg PO DAILY 01/14/17 [History] Cholecalciferol (Vitamin D3) [Vitamin D] 2,000 unit PO DAILY 01/14/17 [History] Furosemide 20 mg PO DAILY 01/14/17 [History] Mirtazapine 30 mg PO BEDTIME 01/14/17 [History] [place]-3/DHA/Epa/Fish Oil [Fish Oil 1,000 mg Softgel] 1 each PO DAILY 01/14/17 [ History] Pramipexole Di-HCl [Mirapex] 1.5 mg PO DAILY@1700 01/14/17 [History] Primidone 150 mg PO BID 01/14/17 [History] Propranolol [Inderal LA] 60 mg PO BEDTIME 01/14/17 [History] Vit A/Vit C/Vit E/Zinc/Copper [Preservision Areds Softgel] 1 tab PO DAILY [History] Lisinopril 5 mg PO DAILY 01/19/17 [History] - Discharge Summary/Plan Comment DC Time >30 min.: No Discharge Summary/Plan Comment: Patient will be placed in swing bed therapy, Reviewed functional limitation assessment, goal is to have a minimum of 80% MMT and WB, Independent inside AD with 100' ambulation distance for discharging back to [facility]. Final diagnosis Left pubic ramus fracture, Right ankle sprain Other chronic problems include HTN, Hyperlipidemia, osteoarthritis, vitamin B12 deficiency, osteoporosis, essential tremor, RLS, depression, mild cognitive impairment - Patient Data Vitals - Most Recent: Last Vital Signs Temp 97.5 F 01/17/17 06:05 Pulse 68 01/17/17 08:38 Resp 18 01/17/17 06:05 BP 151/75 H 01/17/17 08:38 Pulse Ox 87 L 01/17/17 08:25 Weight - Most Recent: 165 lb 11.2 oz Med Orders - Current: Current Medications Discontinued Medications Acetaminophen (Tylenol Extra Strength) 500 mg PO Q6H [facility] Last Admin: 01/17/17 11:51 Dose: 500 mg Hydrocodone Bitart/Acetaminophen ([place] 325-5 Mg) 1 tab PO Q4H PRN PRN Reason: Pain Last Admin: 01/16/17 09:26 Dose: 1 tab Aspirin (Halfprin) 81 mg PO DAILY [facility] Last Admin: 01/17/17 08:34 Dose: 81 mg Calcium Carbonate/Glycine (Tums) 500 mg PO DAILY [facility] Last Admin: 01/17/17 08:35 Dose: 500 mg Cholecalciferol (Vitamin D3) 2,000 units PO DAILY [facility] Last Admin: 01/17/17 08:36 Dose: 2,000 units Cyanocobalamin (Vitamin B12) 500,000 mcg PO DAILY [facility] Cyanocobalamin (Vitamin B12) 500 mcg PO DAILY [facility] Last Admin: 01/17/17 08:35 Dose: 500 mcg Docusate Sodium (Colace) 100 mg PO BID PRN PRN Reason: Constipation Last Admin: 01/16/17 09:29 Dose: 100 mg Donepezil HCl (Aricept) 20 mg PO DAILY [facility] Last Admin: 01/17/17 08:34 Dose: 20 mg Enoxaparin Sodium (Lovenox) 30 mg SUBCUT DAILY [facility] Last Admin: 01/17/17 08:35 Dose: 30 mg Furosemide (Lasix) 20 mg PO DAILY [facility] Last Admin: 01/17/17 08:35 Dose: 20 mg Loperamide HCl (Imodium) 4 mg PO DAILY PRN PRN Reason: Diarrhea Melatonin (Melatonin) 3 mg PO BEDTIME [facility] Last Admin: 01/16/17 20:21 Dose: 3 mg Mirtazapine (Remeron) 30 mg PO BEDTIME [facility] Last Admin: 01/16/17 20:21 Dose: 30 mg Morphine Sulfate (Morphine) 2 mg IVPUSH ONETIME ONE Stop: 01/14/17 00:27 Last Admin: 01/14/17 00:46 Dose: 2 mg Morphine Sulfate (Morphine) 2 mg IVPUSH Q2H PRN PRN Reason: Pain (severe 7-10) Last Admin: 01/14/17 12:46 Dose: 2 mg Colestipol 1 Gram (Tablets:*Pt Own Med*) 1 gm PO BID [facility] Last Admin: 01/15/17 08:27 Dose: Not Given Primidone 50 Mg Tabs (*Pt Own Med*) 0 mg PO BID [facility] Last Admin: 01/16/17 09:06 Dose: 150 mg Ondansetron HCl (Zofran) 4 mg IVPUSH ONETIME ONE Stop: 01/14/17 00:27 Last Admin: 01/14/17 00:47 Dose: 4 mg Primidone 50 Mg Tabs (*Pt Own Med*) 3 each PO BID [facility] Last Admin: 01/17/17 08:35 Dose: 3 each Pramipexole Dihydrochloride (Mirapex) 1.5 mg PO DAILY [facility] Last Admin: 01/17/17 08:35 Dose: 1.5 mg Propranolol HCl (Inderal La) 60 mg PO DAILY [facility] Last Admin: 01/14/17 14:40 Dose: Not Given Propranolol HCl (Inderal La) 80 mg PO DAILY [facility] Last Admin: 01/17/17 08:38 Dose: 80 mg *Q Meaningful Use (DIS) - VTE *Q VTE Criteria *Q: - Stroke *Q Stroke Criteria *Q: - AMI *Q AMI Criteria *Q:
== END 2017-01-17 11:57 | disposition swing bed (61) | DRG 535 ==
LOC: KA.ED 23:46 → KA.MS 01-14 01:45 → UNDOADMOB 01-14 01:45 → MERGE 01-14 11:45 → INTOOBSV 01-14 11:45 → OBSVTOIN 01-14 11:45 → KA.MS 01-17 11:35 → OBSVTOIN 01-17 11:35 → UNDODISIN 01-17 11:57
PROVIDERS: ADMIT Family Medicine; ATTEND Family Medicine
DX: S70.02XA Contusion of left hip, initial encounter (principal); S32.592A Other specified fracture of left pubis, initial encounter for closed fracture; J96.01 Acute respiratory failure with hypoxia; Z88.8 Allergy status to other drugs, medicaments and biological substances; T40.605A Adverse effect of unspecified narcotics, initial encounter; W10.8XXA Fall (on) (from) other stairs and steps, initial encounter; Y92.230 Patient room in hospital as the place of occurrence of the external cause; Y92.098 Other place in other non-institutional residence as the place of occurrence of the external cause; S93.401A Sprain of unspecified ligament of right ankle, initial encounter; I10 Essential (primary) hypertension; E78.5 Hyperlipidemia, unspecified; R19.7 Diarrhea, unspecified; E53.8 Deficiency of other specified B group vitamins; M81.0 Age-related osteoporosis without current pathological fracture; G25.0 Essential tremor; G25.81 Restless legs syndrome; F32.9 Major depressive disorder, single episode, unspecified; F06.8 Other specified mental disorders due to known physiological condition
CPT/HCPCS: 36415; 72170; 73610-RT; 80048; 94760; 96374; 96375; 97110-GP; 97161-GP; 99284; A9270-GY; J1650; J2270; J2405

== ENCOUNTER 2017-01-17 11:25 | Inpatient (IN) | payer MEDICARE, OTHER ==
[2017-01-17] MEDS ORDERED: Loperamide 2 MG Cap PO PRN (11:32)
--- NOTE | 2017-01-17 11:45 | PCM.HP ---
H&P History of Present Illness - General Date of Service: 01/17/17 Admit Problem/Dx: Admission Diagnosis/Problem Admission Diagnosis/Problem Hip pain Source of Information: Patient, Old Records, Provider, RN History Limitations: Reports: No Limitations - History of Present Illness Initial Comments - Free Text/Narative: 81yoF was admitted to swing bed status today after an acute care stay here at [facility] due to stable Left pubic rami fractures and right ankle sprain. Her sustained injury came when she fell down 3 stairs at her [facility]. She was transported [facility] via EMS complaining of pain in her left hip and right ankle. Initial x-rays of pelvis and L hip were read as "Left acetabulum and proximal femur unremarkable. Unable to exclude non- displaced fracture inferior pubic ramus, however subsequent final reports of x- rays demonstrated the patient sustained a Left pubic rami fractures, however the age was indeterminate--however seem to correlate with her physical symptoms. Please do not reveal ankle fracture. No surgical intervention required however patient will require physical therapy and due to her living status with [facility] she qualifies for swing bed therapy here at [facility]. - Related Data Allergies/Adverse Reactions: Allergies Allergy/AdvReac Type Severity Reaction Status Date / Time codeine Allergy Rash Verified 01/17/17 14:04 minocycline Allergy Cannot Verified 01/17/17 14:04 Remember Penicillins Allergy Rash Verified 01/17/17 14:04 ear drops Allergy Rash Uncoded 01/17/17 14:04 METAL Allergy Rash Uncoded 01/17/17 14:04 metal Allergy Rash Uncoded 01/17/17 14:04 Home Medications: Home Meds Aspirin [Halfprin] 81 mg PO DAILY 01/23/14 [History] Donepezil HCl [Aricept] 20 mg PO DAILY 01/23/14 [History] Lactobacillus Combination No.4 [Probiotic] 4 mg PO DAILY 01/23/14 [History] Colestipol [Colestipol HCl] 2 gm PO BID 11/08/16 [History] Cyanocobalamin (Vitamin B-12) [B-12] 500 mcg PO DAILY 11/08/16 [History] Ketoconazole [Nizoral 2% Shampoo] 1 applic TOP DAILY 11/08/16 [History] Loperamide [Imodium] 2 mg PO DAILY 11/08/16 [History] Calcium Carbonate [Calcium] 600 mg PO DAILY 01/14/17 [History] Cholecalciferol (Vitamin D3) [Vitamin D] 2,000 unit PO DAILY 01/14/17 [History] Furosemide 20 mg PO DAILY 01/14/17 [History] Mirtazapine 30 mg PO BEDTIME 01/14/17 [History] [place]-3/DHA/Epa/Fish Oil [Fish Oil 1,000 mg Softgel] 1 each PO DAILY 01/14/17 [ History] Pramipexole Di-HCl [Mirapex] 1.5 mg PO DAILY 01/14/17 [History] Primidone 150 mg PO BID 01/14/17 [History] Propranolol [Inderal LA] 60 mg PO DAILY 01/14/17 [History] Vit A/Vit C/Vit E/Zinc/Copper [Preservision Areds Softgel] 1 tab PO DAILY [History] Past Medical History HEENT History: Reports: Cataract, Impaired Vision, Macular Degeneration, Other ( See Below) Other HEENT History: myopia Cardiovascular History: Reports: High Cholesterol, Heart Murmur, Hypertension Gastrointestinal History: Reports: Chronic Diarrhea, Other (See Below) Other Gastrointestinal History: lymphocytic colitis [employer] History: Reports: Other OB/BYN History: 3 children Musculoskeletal History: Reports: Arthritis, Other (See Below), Osteoarthritis Other Musculoskeletal History: knee pain, bilateral leg pain Neurological History: Reports: Other (See Below) Other Neuro History: Restless Leg Syndrome, Essential Tremor Psychiatric History: Reports: Depression, Other (See Below) Other Psychiatric History: Mild Cognitive Impairment Endocrine/Metabolic History: Reports: Osteoporosis, Osteopenia Hematologic History: Reports: Other (See Below) Other Hematologic History: elevated ferritin Dermatologic History: Reports: Other (See Below) Other Dermatologic History: seborrheic keratoses - Past Surgical History Cardiovascular Surgical History: Reports: None GI Surgical History: Reports: Other (See Below) Other GI Surgeries/Procedures: stimulation implant Social & Family History - Family History Family Medical History: Unobtainable - Tobacco Use Smoking Status *Q: Never Smoker Second Hand Smoke Exposure: No - Caffeine Use Caffeine Use: Reports: Coffee - Alcohol Use Days Per Week of Alcohol Use: 7 Number of Drinks Per Day: 1 Total Drinks Per Week: 7 - Recreational Drug Use Recreational Drug Use: No H&P Review of Systems - Review of Systems: Review Of Systems: See Below General: Reports: Weakness. Denies: Fever, Chills, Night Sweats, Diaphoresis, Decreased Appetite HEENT: Reports: No Symptoms Pulmonary: Reports: Shortness of Breath (Mild shortness of breath). Denies: Cough, Sputum Cardiovascular: Reports: No Symptoms Gastrointestinal: Reports: No Symptoms Genitourinary: Reports: No Symptoms. Denies: Dysuria, Frequency Musculoskeletal: Reports: Other (Right ankle pain, pelvic pain). Denies: Joint Swelling Skin: Reports: No Symptoms. Denies: Pallor, Diaphoresis, Erythema, Urticaria Psychiatric: Reports: No Symptoms Neurological: Reports: Difficulty Walking, Weakness, Gait Disturbance Hematologic/Lymphatic: Reports: No Symptoms Immunologic: Reports: No Symptoms Exam - Exam Exam: See Below - Exam Quality Assessment: Supplemental Oxygen (1 L nasal cannula,) General: Cooperative. No: Mild Distress HEENT: Conjunctiva Clear, EOMI, Hearing Intact, Mucosa Moist & [place], Nares Patent, Normal Nasal Septum, Pupils Equal Neck: Supple, Trachea Midline, 2 Lungs: Clear to Auscultation, Normal Respiratory Effort Cardiovascular: Regular Rate, Regular Rhythm GI/Abdominal Exam: Normal Bowel Sounds, Soft, Non-Tender, No Organomegaly, No Distention, No Abnormal Bruit, No Mass, Pelvis Stable (Female) Exam: Deferred Rectal (Female) Exam: No: Black Stool, Bloody Stool Back Exam: No: CVA Tenderness (L), CVA Tenderness (R) Extremities: No Pedal Edema Peripheral Pulses: 1+: Posterior Tibial (L), Posterior Tibial (R), 2+: Carotid ( L), Carotid (R), 3+: Radial (L), Radial (R) Skin: Warm, Dry, Intact Neurological: Cranial Nerves Intact, Normal Speech, Normal Tone, Sensation Intact. No: Normal Gait Neuro Extensive - Mental Status: Alert, Oriented x3, Normal Mood/Affect, Normal Cognition Neuro Extensive - Motor, Sensory, Reflexes: No: Tongue Deviation (L), Tongue Deviation (R), Expressive Aphasia, Facial Palsy (R), Facial Palsy w Forehead Psychiatric: Alert, Normal Affect, Normal Mood *Q Meaningful Use (ADM) - VTE *Q VTE Criteria *Q: - Stroke *Q Stroke Criteria *Q: - AMI *Q AMI Criteria *Q: Problem List Initiated/Reviewed/Updated: Yes Orders Last 24hrs: Active Orders 24 hr Category Date Time Status Admission Status [Patient Status] [ADT] Routine ADT 01/17/17 11:35 Ordered Incentive Spirometry [RT Incentive Spirometry] [RC] Care 01/17/17 11:32 Ordered ASDIRECTED Oxygen Therapy [RC] PRN Care 01/17/17 11:32 Ordered Up With Assistance [RC] ASDIRECTED Care 01/17/17 11:32 Ordered Up to Chair [RC] ASDIRECTED Care 01/17/17 11:32 Ordered Vital Signs [RC] Q8HR Care 01/17/17 11:32 Ordered Consult to Physical Therapy [PT Evaluation and Cons 01/17/17 11:32 Ordered Treatment] [CONS] Routine Consult to Chemical Dependency Professional [CONS] Routine Cons 01/17/17 11:32 Ordered Regular Diet [DIET] Diet 01/17/17 Breakfast Ordered Acetaminophen [Tylenol Extra Strength] Med 01/17/17 12:00 Ordered 500 mg PO Q6H Acetaminophen/HYDROcodone [Pesotum 325-5 MG] Med 01/17/17 11:32 Ordered 1 tab PO Q4H PRN Aspirin [Halfprin] Med 01/18/17 09:00 Ordered 81 mg PO DAILY Calcium Carbonate [Tums] Med 01/18/17 09:00 Ordered 500 mg PO DAILY Cholecalciferol (Vitamin D3) [Vitamin D3] Med 01/18/17 09:00 Ordered 2,000 units PO DAILY Cyanocobalamin (Vitamin B12) [Vitamin B12] Med 01/18/17 09:00 Ordered 500 mcg PO DAILY Docusate Sodium [Colace] Med 01/17/17 11:32 Ordered 100 mg PO BID PRN Donepezil [Aricept] Med 01/18/17 09:00 Ordered 20 mg PO DAILY Enoxaparin [Lovenox] Med 01/18/17 09:00 Ordered 30 mg SUBCUT DAILY Furosemide [Lasix] Med 01/18/17 09:00 Ordered 20 mg PO DAILY Loperamide [Imodium] Med 01/17/17 11:32 Ordered 4 mg PO DAILY PRN Melatonin Med 01/17/17 21:00 Ordered 3 mg PO BEDTIME Mirtazapine [Remeron] Med 01/17/17 21:00 Ordered 30 mg PO BEDTIME Patient's Own Medication [Ptom] Med 01/17/17 21:00 Ordered 3 each PO BID Pramipexole [Mirapex] Med 01/18/17 09:00 Ordered 1.5 mg PO DAILY Propranolol [Inderal LA] Med 01/18/17 09:00 Ordered 80 mg PO DAILY Resuscitation Status Routine Resus Stat 01/17/17 11:34 Ordered Medication Orders Acetaminophen (Tylenol Extra Strength) 500 mg PO Q6H HANNAH Hydrocodone Bitart/Acetaminophen (Pesotum 325-5 Mg) 1 tab PO Q4H PRN PRN Reason: Pain Aspirin (Halfprin) 81 mg PO DAILY HANNAH Calcium Carbonate/Glycine (Tums) 500 mg PO DAILY HANNA[facility] Cholecalciferol (Vitamin D3) 2,000 units PO DAILY [facility]ANNA[facility] Cyanocobalamin (Vitamin B12) 500 mcg PO DAILY HANNAH Docusate Sodium (Colace) 100 mg PO BID PRN PRN Reason: Constipation Donepezil HCl (Aricept) 20 mg PO DAILY HANNAH Enoxaparin Sodium (Lovenox) 30 mg SUBCUT DAILY HANNAH Furosemide (Lasix) 20 mg PO DAILY HANNAH Loperamide HCl (Imodium) 4 mg PO DAILY PRN PRN Reason: Diarrhea Melatonin (Melatonin) 3 mg PO BEDTIME HANNAH Mirtazapine (Remeron) 30 mg PO BEDTIME HANNAH Patient Own Medication (Ptom) 3 each PO BID HANNAH Pramipexole Dihydrochloride (Mirapex) 1.5 mg PO DAILY HANNAH Propranolol HCl (Inderal La) 80 mg PO DAILY HANNAH Assessment/Plan Comment:: HISTORY OF PRESENT ILLNESS 81yoF was admitted to swing bed status today after an acute care stay here at [facility] due to stable Left pubic rami fractures and right ankle sprain. Her sustained injury came when she fell down 3 stairs at her [facility]. She was transported [facility] via EMS complaining of pain in her left hip and right ankle. Initial x-rays of pelvis and L hip were read as "Left acetabulum and proximal femur unremarkable. Unable to exclude non- displaced fracture inferior pubic ramus, however subsequent final reports of x- rays demonstrated the patient sustained a Left pubic rami fractures, however the age was indeterminate--however seem to correlate with her physical symptoms. Please do not reveal ankle fracture. No surgical intervention required however patient will require physical therapy and due to her living status with [facility] she qualifies for swing bed therapy here at [facility]. Primary impression Left pubic rami fractures, stable. physical therapy Right ankle sprain, Pain management, Pesotum when necessary Chronic problems HTN: Stable. Continue furosemide. Chronic diarrhea: Stable. Continue colestipol and loperamide PRN, HLD: Continue ASA. OA; B12 deficiency: Continue B12. Osteoporosis: Continue Ca/D. Essential tremor: Stable. Continue propranolol and primidone. RLS: Stable. Continue pramipexole. Depression: Stable. Continue mirtazepine. Cognitive impairment, Stable. Continue donepezil.
[2017-01-17] MEDS ORDERED: Acetaminophen 500 MG Tab PO SCH (12:00)
[2017-01-17] MEDS: Acetaminophen 500 MG Tab PO SCH (17:24)
[2017-01-17] MEDS: Mirtazapine 15 MG Tab PO SCH (20:24)
[2017-01-17] MEDS: Patient's Own Medication 1 Each PO SCH (20:25)
[2017-01-17] MEDS: Melatonin 3 MG Tab PO SCH (20:30)
[2017-01-17] MEDS ORDERED: Docusate Sodium 100 MG Cap PO PRN (21:00)
[2017-01-18] MEDS: Acetaminophen 500 MG Tab PO SCH ×4 (01:27→17:34)
[2017-01-18] MEDS: Acetaminophen/HYDROcodone 325-5 MG Tab PO PRN ×2 (04:55→15:54)
[2017-01-18] MEDS: Patient's Own Medication 1 Each PO SCH (08:05)
[2017-01-18] MEDS: Pramipexole 0.5 MG Tab PO SCH (08:06)
[2017-01-18] MEDS: Propranolol 80 MG Cap.ER PO SCH (08:06)
[2017-01-18] MEDS: Aspirin 81 MG Tab.EC PO SCH (08:06)
[2017-01-18] MEDS: Donepezil 10 MG Tab PO SCH (08:06)
[2017-01-18] MEDS: Cholecalciferol (Vitamin D3) 1,000 Unit Tab PO SCH (08:07)
[2017-01-18] MEDS: Calcium Carbonate 500 MG Tab.Chew PO SCH (08:07)
[2017-01-18] MEDS: Furosemide 20 MG Tab PO SCH (08:07)
[2017-01-18] MEDS: Cyanocobalamin (Vitamin B12) 500 MCG Tab PO SCH (08:07)
[2017-01-18] MEDS: Enoxaparin 30 MG/0.3 ML Syringe SUBCUT SCH (08:08)
[2017-01-18] MEDS: Primidone 50 MG Tab PO SCH (20:05)
[2017-01-18] MEDS: Mirtazapine 15 MG Tab PO SCH (20:05)
[2017-01-18] MEDS: Melatonin 3 MG Tab PO SCH (20:05)
[2017-01-19] MEDS: Acetaminophen 500 MG Tab PO SCH ×4 (00:35→18:03)
--- NOTE | 2017-01-19 09:00 | PCM.PN ---
- General Info Date of Service: 01/19/17 Functional Status: Reports: Tolerating Diet, Ambulating, Urinating (Frequent urination however treated for UTI also on diuretic therapy), New Symptoms (Dry cough--), Incentive Spirometry. Denies: Pain Controlled (Pain tolerable however uncomfortable at nighttime, likely bed situation, padding added) - Review of Systems General: Reports: Weakness. Denies: Fatigue, Malaise, Chills, Night Sweats HEENT: Reports: No Symptoms Pulmonary: Reports: Cough (Dry cough now). Denies: Shortness of Breath, Sputum , Wheezing Cardiovascular: Reports: No Symptoms Gastrointestinal: Reports: No Symptoms Genitourinary: Reports: Frequency. Denies: Dysuria, Burning, Pain, Urgency, Incontinence, Hematuria, Retention, Flank Pain Musculoskeletal: Reports: Other (Right ankle pain, right ankle sprain, hip pain mild mainly at night) Skin: Denies: Other Neurological: Reports: Difficulty Walking, Gait Disturbance. Denies: Numbness - Patient Data Vitals - Most Recent: Last Vital Signs Temp 97.9 F 01/19/17 04:14 Pulse 78 01/19/17 04:14 Resp 18 01/19/17 04:14 BP 154/86 H 01/19/17 04:14 Pulse Ox 94 L 01/19/17 06:08 Weight - Most Recent: 161 lb I&O - Last 24 Hours: Intake & Output 01/18/17 01/19/17 01/19/17 22:59 06:59 14:59 Intake Total 520 150 Balance 520 150 Med Orders - Current: Current Medications Acetaminophen (Tylenol Extra Strength) 500 mg PO Q6H [facility] Last Admin: 01/19/17 05:54 Dose: 500 mg Hydrocodone Bitart/Acetaminophen ([place]well 325-5 Mg) 1 tab PO Q4H PRN PRN Reason: Pain Last Admin: 01/18/17 15:54 Dose: 1 tab Aspirin (Halfprin) 81 mg PO DAILY [facility] Last Admin: 01/18/17 08:06 Dose: 81 mg Calcium Carbonate/Glycine (Tums) 500 mg PO DAILY [facility] Last Admin: 01/18/17 08:07 Dose: 500 mg Cholecalciferol (Vitamin D3) 2,000 units PO DAILY [facility] Last Admin: 01/18/17 08:07 Dose: 2,000 units Cyanocobalamin (Vitamin B12) 500 mcg PO DAILY [facility] Last Admin: 01/18/17 08:07 Dose: 500 mcg Docusate Sodium (Colace) 100 mg PO BID PRN PRN Reason: Constipation Donepezil HCl (Aricept) 20 mg PO DAILY [facility] Last Admin: 01/18/17 08:06 Dose: 20 mg Enoxaparin Sodium (Lovenox) 30 mg SUBCUT DAILY [facility] Last Admin: 01/18/17 08:08 Dose: 30 mg Furosemide (Lasix) 20 mg PO DAILY [facility] Last Admin: 01/18/17 08:07 Dose: 20 mg Loperamide HCl (Imodium) 4 mg PO DAILY PRN PRN Reason: Diarrhea Melatonin (Melatonin) 3 mg PO BEDTIME [facility] Last Admin: 01/18/17 20:05 Dose: 3 mg Mirtazapine (Remeron) 30 mg PO BEDTIME [facility] Last Admin: 01/18/17 20:05 Dose: 30 mg Pramipexole Dihydrochloride (Mirapex) 1.5 mg PO DAILY [facility] Last Admin: 01/18/17 08:06 Dose: 1.5 mg Primidone (Mysoline) 150 mg PO BID [facility] Last Admin: 01/18/17 20:05 Dose: 150 mg Propranolol HCl (Inderal La) 80 mg PO DAILY [facility] Last Admin: 01/18/17 08:06 Dose: 80 mg Discontinued Medications Acetaminophen (Tylenol Extra Strength) 500 mg PO Q6H [facility] Last Admin: 01/17/17 12:53 Dose: Not Given Patient Own Medication (Ptom) 3 each PO BID [facility] Last Admin: 01/18/17 08:05 Dose: 3 each - Exam Quality Assessment: No: Supplemental Oxygen (Longer on oxygen therapy) General: Alert, Oriented Neck: Supple Lungs: Clear to Auscultation, Normal Respiratory Effort Cardiovascular: Regular Rate, Regular Rhythm GI/Abdominal Exam: Soft, No Mass. No: Distended, Guarding, Rigid, Rebound (Female) Exam: Deferred Back Exam: No: CVA Tenderness (L), CVA Tenderness (R) Extremities: No Pedal Edema, Joint Swelling (Slight edema lateral and medial right malleolus), Other (Tender right medial malleolus, mild bruising). No: Increased Warmth Peripheral Pulses: 1+: Dorsalis Pedis (R), 2+: Radial (L), Radial (R) Skin: Other (Slight discoloration 1+ medial right malleolus) Neurological: No New Focal Deficit Psy/Mental Status: Alert, Normal Affect, Normal Mood - Problem List Review Problem List Initiated/Reviewed/Updated: Yes - My Orders Last 24 Hours: My Active Orders 01/18/17 09:00 Aspirin [Halfprin] 81 mg PO DAILY Calcium Carbonate [Tums] 500 mg PO DAILY Cholecalciferol (Vitamin D3) [Vitamin D3] 2,000 units PO DAILY Cyanocobalamin (Vitamin B12) [Vitamin B12] 500 mcg PO DAILY Donepezil [Aricept] 20 mg PO DAILY Enoxaparin [Lovenox] 30 mg SUBCUT DAILY Furosemide [Lasix] 20 mg PO DAILY Pramipexole [Mirapex] 1.5 mg PO DAILY Propranolol [Inderal LA] 80 mg PO DAILY 01/18/17 21:00 Primidone [Mysoline] 150 mg PO BID - Plan Plan:: HISTORY OF PRESENT ILLNESS 81yoF was admitted to swing bed status after an acute care stay here at [facility] due to stable Left pubic rami fractures and right ankle sprain. Her sustained injury came when she fell down 3 stairs at her [facility]. She was transported [facility] via EMS complaining of pain in her left hip and right ankle. Initial x-rays of pelvis and L hip were read as "Left acetabulum and proximal femur unremarkable. Unable to exclude non- displaced fracture inferior pubic ramus, however subsequent final reports of x- rays demonstrated the patient sustained a Left pubic rami fractures, however the age was indeterminate--however seem to correlate with her physical symptoms. Radiographs do not reveal ankle fracture. No surgical intervention required for pelvic fracture however patient will require physical therapy and due to her living status with [facility] she qualifies for swing bed therapy here at [facility]. Primary impression Left pubic rami fractures, stable. physical therapy, PT notes reviewed. Right ankle sprain, reviewed films independently, appears no mortise instability --symmetrical, no [place] instability, Luis Carlos bandage for support/stability, off at night Cough, no longer on oxygen, could be LUIS CARLOS inhibitor induced prior to admission. Restart BP medicine however change to ARB. Pain management, [place] when necessary HTN, stage I, had been on lisinopril prior to hospitalization however this has not been restarted, due to cough she's been having will change to ARB, continue with loop diuretic. Creatinine normal Chronic problems Chronic diarrhea: Stable. Continue colestipol and loperamide PRN, HLD: Continue ASA. OA; B12 deficiency: Continue B12. Osteoporosis: Continue Ca/D. Essential tremor: Stable. Continue propranolol and primidone. RLS: Stable. Continue pramipexole. Depression: Stable. Continue mirtazepine. Cognitive impairment, Stable. Continue donepezil. Discharge planning; Reviewed functional limitation assessment, goal is to have a minimum of 80% MMT and WB, Independent inside AD with 100' ambulation distance for discharging back to [facility].
[2017-01-19] MEDS: Propranolol 80 MG Cap.ER PO SCH (09:13)
[2017-01-19] MEDS: Furosemide 20 MG Tab PO SCH (09:13)
[2017-01-19] MEDS: Donepezil 10 MG Tab PO SCH (09:13)
[2017-01-19] MEDS: Aspirin 81 MG Tab.EC PO SCH (09:13)
[2017-01-19] MEDS: Enoxaparin 30 MG/0.3 ML Syringe SUBCUT SCH (09:14)
[2017-01-19] MEDS: Pramipexole 0.5 MG Tab PO SCH (09:14)
[2017-01-19] MEDS: Cyanocobalamin (Vitamin B12) 500 MCG Tab PO SCH (09:15)
[2017-01-19] MEDS: Cholecalciferol (Vitamin D3) 1,000 Unit Tab PO SCH (09:15)
[2017-01-19] MEDS: Primidone 50 MG Tab PO SCH ×2 (09:15→20:18)
[2017-01-19] MEDS: Calcium Carbonate 500 MG Tab.Chew PO SCH (09:15)
[2017-01-19] MEDS: Losartan 25 MG Tab PO SCH (10:15)
[2017-01-19] MEDS: Mirtazapine 15 MG Tab PO SCH (20:18)
[2017-01-19] MEDS: Melatonin 3 MG Tab PO SCH (20:18)
[2017-01-19] MEDS: Acetaminophen/HYDROcodone 325-5 MG Tab PO PRN (22:19)
[2017-01-20] MEDS: Acetaminophen 500 MG Tab PO SCH ×4 (01:02→18:15)
[2017-01-20] MEDS: Acetaminophen/HYDROcodone 325-5 MG Tab PO PRN ×2 (06:41→20:58)
[2017-01-20] MEDS: Cholecalciferol (Vitamin D3) 1,000 Unit Tab PO SCH (08:55)
[2017-01-20] MEDS: Calcium Carbonate 500 MG Tab.Chew PO SCH (08:56)
[2017-01-20] MEDS: Cyanocobalamin (Vitamin B12) 500 MCG Tab PO SCH (08:56)
[2017-01-20] MEDS: Pramipexole 0.5 MG Tab PO SCH (08:57)
[2017-01-20] MEDS: Primidone 50 MG Tab PO SCH ×2 (08:57→20:56)
[2017-01-20] MEDS: Enoxaparin 30 MG/0.3 ML Syringe SUBCUT SCH (08:58)
[2017-01-20] MEDS: Furosemide 20 MG Tab PO SCH (08:58)
[2017-01-20] MEDS: Propranolol 80 MG Cap.ER PO SCH (08:59)
[2017-01-20] MEDS: Losartan 25 MG Tab PO SCH (09:00)
[2017-01-20] MEDS: Aspirin 81 MG Tab.EC PO SCH (09:00)
[2017-01-20] MEDS: Donepezil 10 MG Tab PO SCH (09:00)
[2017-01-20] MEDS: Melatonin 3 MG Tab PO SCH (20:56)
[2017-01-20] MEDS: Mirtazapine 15 MG Tab PO SCH (20:56)
[2017-01-21] MEDS: Acetaminophen 500 MG Tab PO SCH ×4 (01:01→18:15)
[2017-01-21] MEDS: Acetaminophen/HYDROcodone 325-5 MG Tab PO PRN ×2 (07:32→18:15)
[2017-01-21] MEDS: Cyanocobalamin (Vitamin B12) 500 MCG Tab PO SCH (08:49)
[2017-01-21] MEDS: Cholecalciferol (Vitamin D3) 1,000 Unit Tab PO SCH (08:49)
[2017-01-21] MEDS: Calcium Carbonate 500 MG Tab.Chew PO SCH (08:49)
[2017-01-21] MEDS: Pramipexole 0.5 MG Tab PO SCH ×2 (08:50→21:07)
[2017-01-21] MEDS: Furosemide 20 MG Tab PO SCH (08:50)
[2017-01-21] MEDS: Primidone 50 MG Tab PO SCH ×2 (08:50→21:08)
[2017-01-21] MEDS: Enoxaparin 30 MG/0.3 ML Syringe SUBCUT SCH (08:50)
[2017-01-21] MEDS: Propranolol 80 MG Cap.ER PO SCH (08:51)
[2017-01-21] MEDS: Aspirin 81 MG Tab.EC PO SCH (08:51)
[2017-01-21] MEDS: Losartan 25 MG Tab PO SCH (08:52)
[2017-01-21] MEDS: Donepezil 10 MG Tab PO SCH (08:52)
[2017-01-21] MEDS ORDERED: Pramipexole 0.5 MG Tab PO SCH (21:00)
[2017-01-21] MEDS: Mirtazapine 15 MG Tab PO SCH (21:07)
[2017-01-21] MEDS: Melatonin 3 MG Tab PO SCH (21:08)
[2017-01-22] MEDS: Acetaminophen 500 MG Tab PO SCH ×4 (01:04→18:21)
[2017-01-22] MEDS: Acetaminophen/HYDROcodone 325-5 MG Tab PO PRN ×3 (01:34→19:34)
[2017-01-22] MEDS: Cyanocobalamin (Vitamin B12) 500 MCG Tab PO SCH (08:21)
[2017-01-22] MEDS: Cholecalciferol (Vitamin D3) 1,000 Unit Tab PO SCH (08:21)
[2017-01-22] MEDS: Primidone 50 MG Tab PO SCH ×2 (08:22→20:51)
[2017-01-22] MEDS: Enoxaparin 30 MG/0.3 ML Syringe SUBCUT SCH (08:22)
[2017-01-22] MEDS: Calcium Carbonate 500 MG Tab.Chew PO SCH (08:22)
[2017-01-22] MEDS: Furosemide 20 MG Tab PO SCH (08:23)
[2017-01-22] MEDS: Propranolol 80 MG Cap.ER PO SCH (08:23)
[2017-01-22] MEDS: Donepezil 10 MG Tab PO SCH (08:25)
[2017-01-22] MEDS: Losartan 25 MG Tab PO SCH (08:25)
[2017-01-22] MEDS: Aspirin 81 MG Tab.EC PO SCH (08:25)
[2017-01-22] MEDS: Pramipexole 0.5 MG Tab PO SCH (20:51)
[2017-01-22] MEDS: Melatonin 3 MG Tab PO SCH (20:52)
[2017-01-22] MEDS: Mirtazapine 15 MG Tab PO SCH (20:52)
[2017-01-23] MEDS: Acetaminophen 500 MG Tab PO SCH ×4 (01:43→18:07)
[2017-01-23] MEDS: Acetaminophen/HYDROcodone 325-5 MG Tab PO PRN (01:44)
[2017-01-23] MEDS: Aspirin 81 MG Tab.EC PO SCH (08:46)
[2017-01-23] MEDS: Furosemide 20 MG Tab PO SCH (08:46)
[2017-01-23] MEDS: Losartan 25 MG Tab PO SCH (08:46)
[2017-01-23] MEDS: Propranolol 80 MG Cap.ER PO SCH (08:46)
[2017-01-23] MEDS: Enoxaparin 30 MG/0.3 ML Syringe SUBCUT SCH (08:46)
[2017-01-23] MEDS: Donepezil 10 MG Tab PO SCH (08:46)
[2017-01-23] MEDS: Cyanocobalamin (Vitamin B12) 500 MCG Tab PO SCH (08:47)
[2017-01-23] MEDS: Cholecalciferol (Vitamin D3) 1,000 Unit Tab PO SCH (08:47)
[2017-01-23] MEDS: Primidone 50 MG Tab PO SCH ×2 (08:47→21:20)
[2017-01-23] MEDS: Calcium Carbonate 500 MG Tab.Chew PO SCH (08:47)
--- NOTE | 2017-01-23 10:51 | PN ---
01/23/2017 PATIENT NAME: MICHELE GREGG SUBJECTIVE: This is an 81-year-old female patient who was admitted to swing bed, status for left pubic ramus fracture. The patient was at home when she fell. She ended up having left hip pain. X-rays eventually ended up showing that she did have a ramus fracture. She is here for swing bed for rehabilitation. Today, she states that it really hurts to stand on that hip. She can not walk. She has to have help. She says it is no fun being when you can not walk around. She says they are giving her some pain pills that do help. She denies any constipation. She states that she did have a bowel movement yesterday. OBJECTIVE: VITAL SIGNS: Today, temperature is 96.4, pulse is 70, blood pressure is 123/66, respiratory rate is 18, oxygen saturation on room air is 94%. The patient did not have any lab work drawn today. GENERAL: This is an elderly white female in no acute distress. Very pleasant lady. HEART: Tones are regular rate and rhythm. No murmurs identified. ABDOMEN: Soft, nontender, nondistended. Bowel sounds present x4. LUNGS: Sounds are clear in upper lobes, diminished at bilateral bases and no pedal edema noted on exam. IMPRESSION AND PLAN: 1. Left pubic ramus fracture. Plan, we will continue with scheduled Tylenol 500 mg every 6 hours scheduled. She can have hydrocodone as needed for pain. We will continue with calcium supplements of Tums daily along with vitamin D3 2000 units daily, Lovenox 30 mg subcu daily for DVT prophylaxis. 2. History of mild dementia. Plan, continue with Aricept 20 mg daily. 3. History of hypertension. Plan, continue with Lasix 20 mg daily along with losartan 25 mg daily and Inderal 80 mg daily. 4. History of insomnia. Plan, continue with melatonin 3 mg at bedtime along with Remeron 30 mg at bedtime also. 5. History of restless legs syndrome. Plan, continue with Mirapex 1.5 mg at bedtime. /[id number]/MODL MTDD
[2017-01-23] MEDS: Melatonin 3 MG Tab PO SCH (21:18)
[2017-01-23] MEDS: Pramipexole 0.5 MG Tab PO SCH (21:19)
[2017-01-23] MEDS: Mirtazapine 15 MG Tab PO SCH (21:21)
[2017-01-24] MEDS: Acetaminophen 500 MG Tab PO SCH ×4 (00:11→18:06)
[2017-01-24] MEDS: Acetaminophen/HYDROcodone 325-5 MG Tab PO PRN ×2 (03:26→20:14)
[2017-01-24] MEDS: Primidone 50 MG Tab PO SCH ×2 (08:43→20:09)
[2017-01-24] MEDS: Cholecalciferol (Vitamin D3) 1,000 Unit Tab PO SCH (08:43)
[2017-01-24] MEDS: Enoxaparin 30 MG/0.3 ML Syringe SUBCUT SCH (08:43)
[2017-01-24] MEDS: Furosemide 20 MG Tab PO SCH (08:43)
[2017-01-24] MEDS: Calcium Carbonate 500 MG Tab.Chew PO SCH (08:43)
[2017-01-24] MEDS: Aspirin 81 MG Tab.EC PO SCH (08:43)
[2017-01-24] MEDS: Cyanocobalamin (Vitamin B12) 500 MCG Tab PO SCH (08:43)
[2017-01-24] MEDS: Donepezil 10 MG Tab PO SCH (08:43)
[2017-01-24] MEDS: Propranolol 80 MG Cap.ER PO SCH (08:44)
[2017-01-24] MEDS: Losartan 25 MG Tab PO SCH (08:44)
[2017-01-24] MEDS: Melatonin 3 MG Tab PO SCH (20:09)
[2017-01-24] MEDS: Pramipexole 0.5 MG Tab PO SCH (20:09)
[2017-01-24] MEDS: Mirtazapine 15 MG Tab PO SCH (20:10)
[2017-01-25] MEDS: Acetaminophen 500 MG Tab PO SCH ×4 (01:38→17:40)
[2017-01-25] MEDS: Propranolol 80 MG Cap.ER PO SCH (08:16)
[2017-01-25] MEDS: Aspirin 81 MG Tab.EC PO SCH (08:17)
[2017-01-25] MEDS: Donepezil 10 MG Tab PO SCH (08:17)
[2017-01-25] MEDS: Calcium Carbonate 500 MG Tab.Chew PO SCH (08:17)
[2017-01-25] MEDS: Cholecalciferol (Vitamin D3) 1,000 Unit Tab PO SCH (08:17)
[2017-01-25] MEDS: Losartan 25 MG Tab PO SCH (08:17)
[2017-01-25] MEDS: Primidone 50 MG Tab PO SCH ×2 (08:17→20:53)
[2017-01-25] MEDS: Furosemide 20 MG Tab PO SCH (08:18)
[2017-01-25] MEDS: Cyanocobalamin (Vitamin B12) 500 MCG Tab PO SCH (08:18)
[2017-01-25] MEDS: Mirtazapine 15 MG Tab PO SCH (20:52)
[2017-01-25] MEDS: Melatonin 3 MG Tab PO SCH (20:52)
[2017-01-25] MEDS: Acetaminophen/HYDROcodone 325-5 MG Tab PO PRN (20:52)
[2017-01-25] MEDS: Pramipexole 0.5 MG Tab PO SCH (20:53)
[2017-01-26] MEDS: Acetaminophen 500 MG Tab PO SCH ×4 (01:41→17:34)
[2017-01-26] MEDS: Donepezil 10 MG Tab PO SCH (08:42)
[2017-01-26] MEDS: Losartan 25 MG Tab PO SCH (08:43)
[2017-01-26] MEDS: Primidone 50 MG Tab PO SCH ×2 (08:44→20:57)
[2017-01-26] MEDS: Furosemide 20 MG Tab PO SCH (08:44)
[2017-01-26] MEDS: Calcium Carbonate 500 MG Tab.Chew PO SCH (08:44)
[2017-01-26] MEDS: Propranolol 80 MG Cap.ER PO SCH (08:44)
[2017-01-26] MEDS: Aspirin 81 MG Tab.EC PO SCH (08:44)
[2017-01-26] MEDS: Cholecalciferol (Vitamin D3) 1,000 Unit Tab PO SCH (08:45)
[2017-01-26] MEDS: Cyanocobalamin (Vitamin B12) 500 MCG Tab PO SCH (08:45)
[2017-01-26] MEDS: Acetaminophen/HYDROcodone 325-5 MG Tab PO PRN (09:45)
[2017-01-26] MEDS: Pramipexole 0.5 MG Tab PO SCH (20:57)
[2017-01-26] MEDS: Melatonin 3 MG Tab PO SCH (20:57)
[2017-01-26] MEDS: Mirtazapine 15 MG Tab PO SCH (20:57)
[2017-01-27] MEDS: Acetaminophen 500 MG Tab PO SCH ×4 (01:26→18:13)
[2017-01-27] MEDS: Primidone 50 MG Tab PO SCH ×2 (08:43→20:29)
[2017-01-27] MEDS: Propranolol 80 MG Cap.ER PO SCH (08:43)
[2017-01-27] MEDS: Furosemide 20 MG Tab PO SCH (08:43)
[2017-01-27] MEDS: Aspirin 81 MG Tab.EC PO SCH (08:43)
[2017-01-27] MEDS: Donepezil 10 MG Tab PO SCH (08:43)
[2017-01-27] MEDS: Cyanocobalamin (Vitamin B12) 500 MCG Tab PO SCH (08:43)
[2017-01-27] MEDS: Cholecalciferol (Vitamin D3) 1,000 Unit Tab PO SCH (08:43)
[2017-01-27] MEDS: Losartan 25 MG Tab PO SCH (08:44)
[2017-01-27] MEDS: Calcium Carbonate 500 MG Tab.Chew PO SCH (08:44)
--- NOTE | 2017-01-27 10:00 | PCM.PN ---
- General Info Date of Service: 01/27/17 Functional Status: Reports: Pain Controlled, Tolerating Diet, Ambulating ( starting to ambulate more in room, PT notes reviewed) - Review of Systems General: Reports: Weakness. Denies: Fever, Fatigue, Malaise HEENT: Reports: No Symptoms Pulmonary: Reports: No Symptoms Cardiovascular: Reports: No Symptoms Gastrointestinal: Reports: No Symptoms Genitourinary: Reports: No Symptoms Musculoskeletal: Reports: Joint Swelling (mild right ankle medial malleolus edema) Skin: Reports: Bruising (dependent bruising right ankle-- medial) Neurological: Reports: No Symptoms Psychiatric: Reports: No Symptoms - Patient Data Vitals - Most Recent: Last Vital Signs Temp 98.7 F 01/27/17 06:33 Pulse 76 01/27/17 08:43 Resp 16 01/27/17 06:33 BP 141/71 H 01/27/17 08:44 Pulse Ox 94 L 01/27/17 07:30 Weight - Most Recent: 157 lb 11.2 oz I&O - Last 24 Hours: Intake & Output 01/26/17 01/27/17 01/27/17 22:59 06:59 14:59 Intake Total 350 300 Balance 350 300 Med Orders - Current: Current Medications Acetaminophen (Tylenol Extra Strength) 500 mg PO Q6H [facility] Last Admin: 01/27/17 05:50 Dose: 500 mg Hydrocodone Bitart/Acetaminophen ([place] 325-5 Mg) 1 tab PO Q4H PRN PRN Reason: Pain Last Admin: 01/26/17 09:45 Dose: 1 tab Aspirin (Halfprin) 81 mg PO DAILY [facility] Last Admin: 01/27/17 08:43 Dose: 81 mg Calcium Carbonate/Glycine (Tums) 500 mg PO DAILY [facility] Last Admin: 01/27/17 08:44 Dose: 500 mg Cholecalciferol (Vitamin D3) 2,000 units PO DAILY [facility] Last Admin: 01/27/17 08:43 Dose: 2,000 units Cyanocobalamin (Vitamin B12) 500 mcg PO DAILY [facility] Last Admin: 01/27/17 08:43 Dose: 500 mcg Docusate Sodium (Colace) 100 mg PO BID PRN PRN Reason: Constipation Donepezil HCl (Aricept) 20 mg PO DAILY [facility] Last Admin: 01/27/17 08:43 Dose: 20 mg Furosemide (Lasix) 20 mg PO DAILY [facility] Last Admin: 01/27/17 08:43 Dose: 20 mg Loperamide HCl (Imodium) 4 mg PO DAILY PRN PRN Reason: Diarrhea Losartan Potassium (Cozaar) 25 mg PO DAILY [facility] Last Admin: 01/27/17 08:44 Dose: 25 mg Melatonin (Melatonin) 3 mg PO BEDTIME [facility] Last Admin: 01/26/17 20:57 Dose: 3 mg Mirtazapine (Remeron) 30 mg PO BEDTIME [facility] Last Admin: 01/26/17 20:57 Dose: 30 mg Pramipexole Dihydrochloride (Mirapex) 1.5 mg PO BEDTIME [facility] Last Admin: 01/26/17 20:57 Dose: 1.5 mg Primidone (Mysoline) 150 mg PO BID [facility] Last Admin: 01/27/17 08:43 Dose: 150 mg Propranolol HCl (Inderal La) 80 mg PO DAILY [facility] Last Admin: 01/27/17 08:43 Dose: 80 mg Discontinued Medications Acetaminophen (Tylenol Extra Strength) 500 mg PO Q6H [facility] Last Admin: 01/17/17 12:53 Dose: Not Given Enoxaparin Sodium (Lovenox) 30 mg SUBCUT DAILY [facility] Last Admin: 01/24/17 08:43 Dose: 30 mg Patient Own Medication (Ptom) 3 each PO BID [facility] Last Admin: 01/18/17 08:05 Dose: 3 each Pramipexole Dihydrochloride (Mirapex) 1.5 mg PO DAILY [facility] Last Admin: 01/21/17 08:50 Dose: Not Given Pramipexole Dihydrochloride (Mirapex) 1.5 mg PO BEDTIME [facility] - Exam Quality Assessment: No: Supplemental Oxygen General: Alert, Oriented, Cooperative, No Acute Distress Neck: Supple Lungs: Clear to Auscultation, Normal Respiratory Effort Cardiovascular: Regular Rate, Regular Rhythm (Female) Exam: Deferred Back Exam: No: CVA Tenderness (L), CVA Tenderness (R) Extremities: Joint Swelling. No: Increased Warmth Skin: Ecchymosis (dependent bruising right ankle-- medial) Neurological: No New Focal Deficit Psy/Mental Status: Alert, Normal Affect, Normal Mood - Problem List Review Problem List Initiated/Reviewed/Updated: Yes - Plan Plan:: HISTORY OF PRESENT ILLNESS 81yoF was admitted to [facility] after an acute care stay here at [facility] due to stable Left pubic rami fractures and right ankle sprain. Her sustained injury came when she fell down 3 stairs at her [facility]. She was transported [facility] via EMS complaining of pain in her left hip and right ankle. Initial x-rays of pelvis and L hip were read as "Left acetabulum and proximal femur unremarkable. Unable to exclude non- displaced fracture inferior pubic ramus, however subsequent final reports of x- rays demonstrated the patient sustained a Left pubic rami fracture, however the age was indeterminate--however seem to correlate with her physical symptoms. Radiographs do not reveal ankle fracture. No surgical intervention required for pelvic fracture however patient will require ongoing PT at least until she can self toilets self ADL, due to her living status with [facility] she qualifies for swing bed therapy here at [facility]. CODE STATUS, full code Primary impression Left pubic rami fractures, stable. physical therapy, PT notes reviewed, she needs improved level of function. Right ankle sprain, reviewed films independently, appears no mortise instability --symmetrical, no [place] instability, Luis Carlos bandage for support/stability, off at night Cough, no longer on oxygen, could be LUIS CARLOS inhibitor induced prior to admission. Restart BP medicine however change to ARB. Pain management, [place] when necessary HTN, stage I, had been on lisinopril prior to hospitalization however this has not been restarted, due to cough she's been having will change to ARB, continue with loop diuretic. Creatinine normal Anemia, macrocytic, repeat CBC. significant allergies DVT prophylaxis, Lovenox removed last week, ambulating more, SCDs Chronic problems Chronic diarrhea: Stable. Continue colestipol and loperamide PRN, HLD: Continue ASA. OA; B12 deficiency: Continue B12. Osteoporosis: Continue Ca/D. Essential tremor: Stable. Continue propranolol and primidone. RLS: Stable. Continue pramipexole. Depression: Stable. Continue mirtazepine. Cognitive impairment, Stable. Continue donepezil. psychosis prophylaxis, melatonin with PRN ear plugs. Discharge planning; Reviewed functional limitation assessment, goal is to have a minimum of 80% MMT and WB, Independent inside AD with 100' ambulation distance for discharging back to [facility]. long discussion with physical therapist today regarding discharge planning. pain not necessarily independent indicator for her to be discharge, will focus more on her level of functioning.
[2017-01-27] MEDS: Melatonin 3 MG Tab PO SCH (20:30)
[2017-01-27] MEDS: Mirtazapine 15 MG Tab PO SCH (20:30)
[2017-01-27] MEDS: Pramipexole 0.5 MG Tab PO SCH (20:30)
[2017-01-28] MEDS: Acetaminophen 500 MG Tab PO SCH ×4 (02:05→18:26)
[2017-01-28] MEDS: Acetaminophen/HYDROcodone 325-5 MG Tab PO PRN ×3 (03:06→16:18)
[2017-01-28 08:05] LABS: CHLORIDE,CL 103 mmol/L (98-115); SODIUM,NA 138 mmol/L (136-145)
[2017-01-28] MEDS: Donepezil 10 MG Tab PO SCH (08:26)
[2017-01-28] MEDS: Cholecalciferol (Vitamin D3) 1,000 Unit Tab PO SCH (08:26)
[2017-01-28] MEDS: Propranolol 80 MG Cap.ER PO SCH (08:26)
[2017-01-28] MEDS: Losartan 25 MG Tab PO SCH (08:26)
[2017-01-28] MEDS: Calcium Carbonate 500 MG Tab.Chew PO SCH (08:27)
[2017-01-28] MEDS: Furosemide 20 MG Tab PO SCH (08:27)
[2017-01-28] MEDS: Primidone 50 MG Tab PO SCH ×2 (08:27→20:32)
[2017-01-28] MEDS: Cyanocobalamin (Vitamin B12) 500 MCG Tab PO SCH (08:27)
[2017-01-28] MEDS: Aspirin 81 MG Tab.EC PO SCH (08:27)
[2017-01-28] MEDS: Melatonin 3 MG Tab PO SCH (20:32)
[2017-01-28] MEDS: Mirtazapine 15 MG Tab PO SCH (20:32)
[2017-01-28] MEDS: Pramipexole 0.5 MG Tab PO SCH (20:32)
[2017-01-29] MEDS: Acetaminophen 500 MG Tab PO SCH ×4 (01:45→17:49)
[2017-01-29] MEDS: Acetaminophen/HYDROcodone 325-5 MG Tab PO PRN (02:09)
[2017-01-29] MEDS: Aspirin 81 MG Tab.EC PO SCH (08:24)
[2017-01-29] MEDS: Cholecalciferol (Vitamin D3) 1,000 Unit Tab PO SCH (08:24)
[2017-01-29] MEDS: Primidone 50 MG Tab PO SCH ×2 (08:24→20:08)
[2017-01-29] MEDS: Donepezil 10 MG Tab PO SCH (08:24)
[2017-01-29] MEDS: Losartan 25 MG Tab PO SCH (08:24)
[2017-01-29] MEDS: Furosemide 20 MG Tab PO SCH (08:24)
[2017-01-29] MEDS: Cyanocobalamin (Vitamin B12) 500 MCG Tab PO SCH (08:24)
[2017-01-29] MEDS: Propranolol 80 MG Cap.ER PO SCH (08:24)
[2017-01-29] MEDS: Calcium Carbonate 500 MG Tab.Chew PO SCH (08:24)
[2017-01-29] MEDS: Pramipexole 0.5 MG Tab PO SCH (20:08)
[2017-01-29] MEDS: Mirtazapine 15 MG Tab PO SCH (20:08)
[2017-01-29] MEDS: Melatonin 3 MG Tab PO SCH (20:08)
[2017-01-30] MEDS: Acetaminophen 500 MG Tab PO SCH ×4 (00:40→18:00)
[2017-01-30] MEDS: Primidone 50 MG Tab PO SCH ×2 (08:31→20:13)
[2017-01-30] MEDS: Calcium Carbonate 500 MG Tab.Chew PO SCH (08:32)
[2017-01-30] MEDS: Propranolol 80 MG Cap.ER PO SCH (08:33)
[2017-01-30] MEDS: Cholecalciferol (Vitamin D3) 1,000 Unit Tab PO SCH (08:33)
[2017-01-30] MEDS: Losartan 25 MG Tab PO SCH (08:34)
[2017-01-30] MEDS: Cyanocobalamin (Vitamin B12) 500 MCG Tab PO SCH (08:34)
[2017-01-30] MEDS: Aspirin 81 MG Tab.EC PO SCH (08:34)
[2017-01-30] MEDS: Donepezil 10 MG Tab PO SCH (08:35)
[2017-01-30] MEDS: Furosemide 20 MG Tab PO SCH (08:35)
[2017-01-30] MEDS: Pramipexole 0.5 MG Tab PO SCH (20:14)
[2017-01-30] MEDS: Melatonin 3 MG Tab PO SCH (20:14)
[2017-01-30] MEDS: Mirtazapine 15 MG Tab PO SCH (20:14)
[2017-01-31] MEDS: Acetaminophen 500 MG Tab PO SCH ×4 (01:40→17:15)
[2017-01-31] MEDS: Cholecalciferol (Vitamin D3) 1,000 Unit Tab PO SCH (08:47)
[2017-01-31] MEDS: Primidone 50 MG Tab PO SCH ×2 (08:47→21:44)
[2017-01-31] MEDS: Cyanocobalamin (Vitamin B12) 500 MCG Tab PO SCH (08:47)
[2017-01-31] MEDS: Furosemide 20 MG Tab PO SCH (08:47)
[2017-01-31] MEDS: Propranolol 80 MG Cap.ER PO SCH (08:47)
[2017-01-31] MEDS: Calcium Carbonate 500 MG Tab.Chew PO SCH (08:47)
[2017-01-31] MEDS: Aspirin 81 MG Tab.EC PO SCH (08:48)
[2017-01-31] MEDS: Donepezil 10 MG Tab PO SCH (08:48)
[2017-01-31] MEDS: Losartan 25 MG Tab PO SCH (08:48)
[2017-01-31] MEDS: Pramipexole 0.5 MG Tab PO SCH (21:44)
[2017-01-31] MEDS: Mirtazapine 15 MG Tab PO SCH (21:44)
[2017-01-31] MEDS: Melatonin 3 MG Tab PO SCH (21:44)
[2017-02-01] MEDS: Acetaminophen 500 MG Tab PO SCH ×4 (01:53→17:33)
[2017-02-01] MEDS: Aspirin 81 MG Tab.EC PO SCH (08:14)
[2017-02-01] MEDS: Losartan 25 MG Tab PO SCH (08:14)
[2017-02-01] MEDS: Propranolol 80 MG Cap.ER PO SCH (08:15)
[2017-02-01] MEDS: Donepezil 10 MG Tab PO SCH (08:15)
[2017-02-01] MEDS: Cholecalciferol (Vitamin D3) 1,000 Unit Tab PO SCH (08:15)
[2017-02-01] MEDS: Calcium Carbonate 500 MG Tab.Chew PO SCH (08:16)
[2017-02-01] MEDS: Primidone 50 MG Tab PO SCH ×2 (08:16→20:29)
[2017-02-01] MEDS: Cyanocobalamin (Vitamin B12) 500 MCG Tab PO SCH (08:16)
[2017-02-01] MEDS: Furosemide 20 MG Tab PO SCH (08:16)
--- NOTE | 2017-02-01 10:14 | PCM.PN ---
- General Info Date of Service: 02/01/17 Functional Status: Reports: Pain Controlled (Pain is tolerable at this time), Tolerating Diet, Ambulating. Denies: New Symptoms - Review of Systems General: Reports: No Symptoms HEENT: Reports: No Symptoms Pulmonary: Reports: No Symptoms Cardiovascular: Reports: No Symptoms Gastrointestinal: Reports: No Symptoms Genitourinary: Reports: No Symptoms Musculoskeletal: Reports: Other ([id number] hip pain on movement) Skin: Reports: No Symptoms Neurological: Reports: No Symptoms Psychiatric: Reports: No Symptoms - Patient Data Vitals - Most Recent: Last Vital Signs Temp 97.8 F 02/01/17 06:33 Pulse 62 02/01/17 08:15 Resp 20 02/01/17 06:33 BP 139/75 02/01/17 08:15 Pulse Ox 95 02/01/17 06:33 Weight - Most Recent: 154 lb 3 oz I&O - Last 24 Hours: Intake & Output 01/31/17 02/01/17 02/01/17 22:59 06:59 14:59 Intake Total 590 150 Balance 590 150 Med Orders - Current: Current Medications Acetaminophen (Tylenol Extra Strength) 500 mg PO Q6H [facility] Last Admin: 02/01/17 05:00 Dose: 500 mg Hydrocodone Bitart/Acetaminophen ([place] 325-5 Mg) 1 tab PO Q4H PRN PRN Reason: Pain Last Admin: 01/29/17 02:09 Dose: 1 tab Aspirin (Halfprin) 81 mg PO DAILY [facility] Last Admin: 02/01/17 08:14 Dose: 81 mg Calcium Carbonate/Glycine (Tums) 500 mg PO DAILY [facility] Last Admin: 02/01/17 08:16 Dose: 500 mg Cholecalciferol (Vitamin D3) 2,000 units PO DAILY [facility] Last Admin: 02/01/17 08:15 Dose: 2,000 units Cyanocobalamin (Vitamin B12) 500 mcg PO DAILY [facility] Last Admin: 02/01/17 08:16 Dose: 500 mcg Docusate Sodium (Colace) 100 mg PO BID PRN PRN Reason: Constipation Donepezil HCl (Aricept) 20 mg PO DAILY [facility] Last Admin: 02/01/17 08:15 Dose: 20 mg Furosemide (Lasix) 20 mg PO DAILY [facility] Last Admin: 02/01/17 08:16 Dose: 20 mg Loperamide HCl (Imodium) 4 mg PO DAILY PRN PRN Reason: Diarrhea Losartan Potassium (Cozaar) 25 mg PO DAILY [facility] Last Admin: 02/01/17 08:14 Dose: 25 mg Melatonin (Melatonin) 3 mg PO BEDTIME [facility] Last Admin: 01/31/17 21:44 Dose: 3 mg Mirtazapine (Remeron) 30 mg PO BEDTIME [facility] Last Admin: 01/31/17 21:44 Dose: 30 mg Pramipexole Dihydrochloride (Mirapex) 1.5 mg PO BEDTIME [facility] Last Admin: 01/31/17 21:44 Dose: 1.5 mg Primidone (Mysoline) 150 mg PO BID [facility] Last Admin: 02/01/17 08:16 Dose: 150 mg Propranolol HCl (Inderal La) 80 mg PO DAILY [facility] Last Admin: 02/01/17 08:15 Dose: 80 mg Discontinued Medications Acetaminophen (Tylenol Extra Strength) 500 mg PO Q6H [facility] Last Admin: 01/17/17 12:53 Dose: Not Given Enoxaparin Sodium (Lovenox) 30 mg SUBCUT DAILY [facility] Last Admin: 01/24/17 08:43 Dose: 30 mg Patient Own Medication (Ptom) 3 each PO BID [facility] Last Admin: 01/18/17 08:05 Dose: 3 each Pramipexole Dihydrochloride (Mirapex) 1.5 mg PO DAILY [facility] Last Admin: 01/21/17 08:50 Dose: Not Given Pramipexole Dihydrochloride (Mirapex) 1.5 mg PO BEDTIME [facility] - Exam Quality Assessment: No: Supplemental Oxygen General: Alert, Oriented Lungs: Clear to Auscultation, Normal Respiratory Effort Cardiovascular: Regular Rate, Regular Rhythm (Female) Exam: Deferred Neurological: No New Focal Deficit Psy/Mental Status: Alert, Normal Affect, Normal Mood - Problem List Review Problem List Initiated/Reviewed/Updated: Yes - Plan Plan:: HISTORY OF PRESENT ILLNESS 81yoF was admitted to swing bed status after an acute care stay here at [facility] due to stable Left pubic rami fractures and right ankle sprain. Her sustained injury came when she fell down 3 stairs at her [facility]. She was transported [facility] via EMS complaining of pain in her left hip and right ankle. Initial x-rays of pelvis and L hip were read as "Left acetabulum and proximal femur unremarkable. Unable to exclude non- displaced fracture inferior pubic ramus, however subsequent final reports of x- rays demonstrated the patient sustained a Left pubic rami fracture, however the age was indeterminate--however seem to correlate with her physical symptoms. Radiographs do not reveal ankle fracture. No surgical intervention required for pelvic fracture however patient will require ongoing PT at least until she can self toilets self ADL, due to her living status with [facility] she qualifies for swing bed therapy here at [facility]. CODE STATUS, full code Update today. Patient doing well, results from care conference demonstrated patient to be discharged in a few days with placement [facility]. Primary impression Left pubic rami fractures, stable. physical therapy, PT notes reviewed, Pt is independent with her transfers. PT recommends patient safe now to ambulate inside her room. Right ankle sprain, reviewed films independently, appears no mortise instability --symmetrical, no [place] instability, stable. Pain management, [place] when necessary. Discussion this morning about level of function HTN, stage I, had been on lisinopril prior to hospitalization however this has not been restarted, due to cough she's been having will change to ARB, continue with loop diuretic. Creatinine normal Anemia, macrocytic, hemoglobin 10.8. Stable. significant allergies DVT prophylaxis, no longer on, now ambulating more. SCDs Chronic problems Chronic diarrhea: Stable. Continue colestipol and loperamide PRN, HLD: Continue ASA. OA; B12 deficiency: Continue B12. Osteoporosis: Continue Ca/D. Essential tremor: Stable. Continue propranolol and primidone. RLS: Stable. Continue pramipexole. Depression: Stable. Continue mirtazepine. Cognitive impairment, Stable. Continue donepezil. psychosis prophylaxis, melatonin with PRN ear plugs. Discharge planning; patient will be discharged in a few days in care of her daughter [facility] [place], [place]. PT notes reviewed patient making progress, Pt is independent with her transfers. PT recommends patient safe now to ambulate inside her room. Tolerated all Rx well. Pain decreased to 3/10 with activity. Spoke with patient today about level of function not necessarily pain level determining requirement for pain medication.
[2017-02-01] MEDS: Acetaminophen/HYDROcodone 325-5 MG Tab PO PRN (10:17)
[2017-02-01] MEDS: Melatonin 3 MG Tab PO SCH (20:29)
[2017-02-01] MEDS: Pramipexole 0.5 MG Tab PO SCH (20:29)
[2017-02-01] MEDS: Mirtazapine 15 MG Tab PO SCH (20:29)
[2017-02-02] MEDS: Acetaminophen 500 MG Tab PO SCH ×4 (02:27→18:05)
[2017-02-02] MEDS: Calcium Carbonate 500 MG Tab.Chew PO SCH (08:52)
[2017-02-02] MEDS: Cyanocobalamin (Vitamin B12) 500 MCG Tab PO SCH (08:52)
[2017-02-02] MEDS: Donepezil 10 MG Tab PO SCH (08:52)
[2017-02-02] MEDS: Furosemide 20 MG Tab PO SCH (08:52)
[2017-02-02] MEDS: Cholecalciferol (Vitamin D3) 1,000 Unit Tab PO SCH (08:52)
[2017-02-02] MEDS: Aspirin 81 MG Tab.EC PO SCH (08:53)
[2017-02-02] MEDS: Primidone 50 MG Tab PO SCH ×2 (08:53→20:39)
[2017-02-02] MEDS: Propranolol 80 MG Cap.ER PO SCH (08:54)
[2017-02-02] MEDS: Losartan 25 MG Tab PO SCH (08:55)
[2017-02-02] MEDS: Acetaminophen/HYDROcodone 325-5 MG Tab PO PRN (08:57)
[2017-02-02] MEDS: Mirtazapine 15 MG Tab PO SCH (20:39)
[2017-02-02] MEDS: Melatonin 3 MG Tab PO SCH (20:39)
[2017-02-02] MEDS: Pramipexole 0.5 MG Tab PO SCH (20:39)
[2017-02-03] MEDS: Acetaminophen 500 MG Tab PO SCH ×4 (00:50→17:56)
[2017-02-03] MEDS: Donepezil 10 MG Tab PO SCH (08:04)
[2017-02-03] MEDS: Aspirin 81 MG Tab.EC PO SCH (08:04)
[2017-02-03] MEDS: Losartan 25 MG Tab PO SCH (08:04)
[2017-02-03] MEDS: Propranolol 80 MG Cap.ER PO SCH (08:05)
[2017-02-03] MEDS: Furosemide 20 MG Tab PO SCH (08:05)
[2017-02-03] MEDS: Primidone 50 MG Tab PO SCH ×2 (08:05→21:38)
[2017-02-03] MEDS: Cholecalciferol (Vitamin D3) 1,000 Unit Tab PO SCH (08:05)
[2017-02-03] MEDS: Cyanocobalamin (Vitamin B12) 500 MCG Tab PO SCH (08:05)
[2017-02-03] MEDS: Calcium Carbonate 500 MG Tab.Chew PO SCH (08:05)
--- NOTE | 2017-02-03 10:46 | PCM.DCSUM1 ---
Discharge Summary - Hospital Course Free Text/Narrative:: Date of admission: 01/17/17 (following acute admission 01/14/17 to 01/17/17) Date of discharge: 02/05/17 Admission diagnoses: 1. Debility related to 2 and 3 2. Left pubic rami fracture 3. Right ankle sprain 4. HTN 5. Chronic diarrhea 6. HLD 7. Vitamin B12 deficiency 8. Osteoporosis 9. Essential tremor 10. RLS 11. Depression 12. Mild cognitive impairment Discharge diagnoses: 1. Debility related to 2 and 3, improved 2. Left pubic rami fracture 3. Right ankle sprain 4. HTN 5. Chronic diarrhea 6. HLD 7. Vitamin B12 deficiency 8. Osteoporosis 9. Essential tremor 10. RLS 11. Depression 12. Mild cognitive impairment Consultations: 1. Physical therapy 2. environmental services project manager Procedures: None Hospital course: Ms. Rosario is an 81yoF who sustained a fall down 3 stairs on 01/13/17 in her home at [facility] in [place], [place]. She was transported to [facility] via EMS complaining of pain in her left hip and right ankle. Initial x -rays of pelvis and L hip were read as "Left acetabulum and proximal femur unremarkable, unable to exclude non-displaced fracture inferior pubic ramus," however subsequent final reports of x-rays demonstrated left pubic rami fracture with the age indeterminate, but correlated with her presentation as an acute injury. Radiographs did not reveal ankle fracture. No surgical intervention was required, however she was initially unable to ambulate and was admitted for pain control and physical therapy rehabilitation evaluation. After a three day inpatient stay, she was admitted to swing bed status for ongoing rehabilitation. She has had ongoing clinical improvement throughout hospitalization, now ambulating within her room without assistance. Discharge planned on 02/05/17 with daughter to be transported by private vehicle to [place], [place], where she is planned to be admitted to a SNF there on 02/06/17 for ongoing rehabilitation with physical therapy. Continue ambulation as tolerated with walker and regular diet. Appreciate physical therapy and licensed social worker assistance with this patient's care. Medication changes: Continue previous outpatient medications for chronic medication conditions except switch from lisinopril to losartan due to cough, which was made during stay. Continue scheduled Tylenol and prn [place] for pain control. - Discharge Data Discharge Date: 02/05/17 Discharge Disposition: DC/Tfer to SNF 03 Condition: Good - Patient Summary/Data Consults: Consultations 01/17/17 11:32 Consult to Physical Therapy [PT Evaluation and Treatment] [CONS] Routine Consult to Kaiako Kura [place]ar[place] [CONS] Routine - Patient Instructions Diet: Usual Diet as Tolerated Activity: As Tolerated Showering/Bathing: May Shower Notify Provider of: Increased Pain - Discharge Plan Prescriptions/Med Rec: Acetaminophen/HYDROcodone [[place] 325-5 MG] 1 tab PO Q4H PRN #10 tablet PRN Reason: Pain Losartan [Cozaar] 25 mg PO DAILY #5 tablet Home Medications: Home Meds Aspirin [Halfprin] 81 mg PO DAILY 01/23/14 [History] Donepezil HCl [Aricept] 20 mg PO DAILY 01/23/14 [History] Lactobacillus Combination No.4 [Probiotic] 4 mg PO DAILY 01/23/14 [History] Cyanocobalamin (Vitamin B-12) [B-12] 500 mcg PO DAILY 11/08/16 [History] Ketoconazole [Nizoral 2% Shampoo] 1 applic TOP DAILY 11/08/16 [History] Loperamide [Imodium] 2 mg PO DAILY 11/08/16 [History] Calcium Carbonate [Calcium] 600 mg PO DAILY 01/14/17 [History] Cholecalciferol (Vitamin D3) [Vitamin D] 2,000 unit PO DAILY 01/14/17 [History] Furosemide 20 mg PO DAILY 01/14/17 [History] Mirtazapine 30 mg PO BEDTIME 01/14/17 [History] [place]-3/DHA/Epa/Fish Oil [Fish Oil 1,000 mg Softgel] 1 each PO DAILY 01/14/17 [ History] Pramipexole Di-HCl [Mirapex] 1.5 mg PO DAILY@1700 01/14/17 [History] Primidone 150 mg PO BID 01/14/17 [History] Propranolol [Inderal LA] 60 mg PO BEDTIME 01/14/17 [History] Vit A/Vit C/Vit E/Zinc/Copper [Preservision Areds Softgel] 1 tab PO DAILY [History] Acetaminophen [Tylenol Extra Strength] 500 mg PO Q6H tablet 02/03/17 [Rx] Acetaminophen/HYDROcodone [[place] 325-5 MG] 1 tab PO Q4H PRN #10 tablet 02/03/17 [Rx] Losartan [Cozaar] 25 mg PO DAILY #5 tablet 02/03/17 [Rx] - Discharge Summary/Plan Comment DC Time >30 min.: Yes - General Info Date of Service: 02/03/17 Admission Dx/Problem (Free Text: Debility related to L pubic rami fracture Subjective Update: Ms. Rosario reports doing well this morning. Progressing with rehabilitation with physical therapy and ambulation. Pain controlled with scheduled Tylenol and prn [place], mainly used prior to therapy. Pain continues to be located in left buttock and mildly in right ankle without other areas of pain. No other concerns. - Patient Data Vitals - Most Recent: Last Vital Signs Temp 35.7 C 02/03/17 06:06 Pulse 63 02/03/17 08:05 Resp 18 02/03/17 06:06 BP 144/75 H 02/03/17 08:05 Pulse Ox 94 L 02/03/17 06:06 Weight - Most Recent: 69.938 kg I&O - Last 24 hours: Intake & Output 02/02/17 02/03/17 02/03/17 22:59 06:59 14:59 Intake Total 220 250 Balance 220 250 Med Orders - Current: Current Medications Acetaminophen (Tylenol Extra Strength) 500 mg PO Q6H [facility] Last Admin: 02/03/17 05:14 Dose: 500 mg Hydrocodone Bitart/Acetaminophen ([place] 325-5 Mg) 1 tab PO Q4H PRN PRN Reason: Pain Last Admin: 02/02/17 08:57 Dose: 1 tab Aspirin (Halfprin) 81 mg PO DAILY [facility] Last Admin: 02/03/17 08:04 Dose: 81 mg Calcium Carbonate/Glycine (Tums) 500 mg PO DAILY [facility] Last Admin: 02/03/17 08:05 Dose: 500 mg Cholecalciferol (Vitamin D3) 2,000 units PO DAILY [facility] Last Admin: 02/03/17 08:05 Dose: 2,000 units Cyanocobalamin (Vitamin B12) 500 mcg PO DAILY [facility] Last Admin: 02/03/17 08:05 Dose: 500 mcg Docusate Sodium (Colace) 100 mg PO BID PRN PRN Reason: Constipation Donepezil HCl (Aricept) 20 mg PO DAILY [facility] Last Admin: 02/03/17 08:04 Dose: 20 mg Furosemide (Lasix) 20 mg PO DAILY [facility] Last Admin: 02/03/17 08:05 Dose: 20 mg Loperamide HCl (Imodium) 4 mg PO DAILY PRN PRN Reason: Diarrhea Losartan Potassium (Cozaar) 25 mg PO DAILY [facility] Last Admin: 02/03/17 08:04 Dose: 25 mg Melatonin (Melatonin) 3 mg PO BEDTIME [facility] Last Admin: 02/02/17 20:39 Dose: 3 mg Mirtazapine (Remeron) 30 mg PO BEDTIME [facility] Last Admin: 02/02/17 20:39 Dose: 30 mg Pramipexole Dihydrochloride (Mirapex) 1.5 mg PO BEDTIME [facility] Last Admin: 02/02/17 20:39 Dose: 1.5 mg Primidone (Mysoline) 150 mg PO BID [facility] Last Admin: 02/03/17 08:05 Dose: 150 mg Propranolol HCl (Inderal La) 80 mg PO DAILY [facility] Last Admin: 02/03/17 08:05 Dose: 80 mg Discontinued Medications Acetaminophen (Tylenol Extra Strength) 500 mg PO Q6H [facility] Last Admin: 01/17/17 12:53 Dose: Not Given Enoxaparin Sodium (Lovenox) 30 mg SUBCUT DAILY [facility] Last Admin: 01/24/17 08:43 Dose: 30 mg Patient Own Medication (Ptom) 3 each PO BID [facility] Last Admin: 01/18/17 08:05 Dose: 3 each Pramipexole Dihydrochloride (Mirapex) 1.5 mg PO DAILY [facility] Last Admin: 01/21/17 08:50 Dose: Not Given Pramipexole Dihydrochloride (Mirapex) 1.5 mg PO BEDTIME [facility] - Exam Physical Findings Comments:: GENERAL: Elderly white female sitting in bedside chair in no acute distress. HEENT: Normocephalic, atraumatic. Conjunctiva clear. Nares patent without discharge. Mucous membranes moist. NECK: Supple, no masses. CV: Regular rate and rhythm, no murmurs, rubs, or gallops. 2+ radial and pedal pulses. PULMONARY: Normal effort, clear to auscultation bilaterally, no wheezes, rales, or rhonchi. ABDOMEN: Positive bowel sounds, soft, nontender, nondistended. EXTREMITIES: No edema, cyanosis, or clubbing. MUSCULOSKELETAL: Tenderness overlying left inferior pubic rami and medial right ankle. NEUROLOGICAL: No obvious deficits. Sensation intact to light touch in distal lower extremities. DERMATOLOGIC: Ecchymosis overlying left medial ankle. PSYCHIATRIC: Alert, interactive, appropriate affect. *Q Meaningful Use (DIS) - VTE *Q VTE Criteria *Q: - Stroke *Q Stroke Criteria *Q: - AMI *Q AMI Criteria *Q:
[2017-02-03] MEDS: Melatonin 3 MG Tab PO SCH (21:38)
[2017-02-03] MEDS: Pramipexole 0.5 MG Tab PO SCH (21:39)
[2017-02-03] MEDS: Mirtazapine 15 MG Tab PO SCH (21:40)
[2017-02-04] MEDS: Acetaminophen/HYDROcodone 325-5 MG Tab PO PRN ×2 (04:37→09:25)
[2017-02-04] MEDS: Acetaminophen 500 MG Tab PO SCH ×4 (04:41→18:11)
[2017-02-04] MEDS: Donepezil 10 MG Tab PO SCH (09:10)
[2017-02-04] MEDS: Losartan 25 MG Tab PO SCH (09:10)
[2017-02-04] MEDS: Propranolol 80 MG Cap.ER PO SCH (09:11)
[2017-02-04] MEDS: Aspirin 81 MG Tab.EC PO SCH (09:11)
[2017-02-04] MEDS: Furosemide 20 MG Tab PO SCH (09:11)
[2017-02-04] MEDS: Cholecalciferol (Vitamin D3) 1,000 Unit Tab PO SCH (09:12)
[2017-02-04] MEDS: Cyanocobalamin (Vitamin B12) 500 MCG Tab PO SCH (09:12)
[2017-02-04] MEDS: Primidone 50 MG Tab PO SCH ×2 (09:12→21:51)
[2017-02-04] MEDS: Calcium Carbonate 500 MG Tab.Chew PO SCH (09:12)
[2017-02-04] MEDS: Pramipexole 0.5 MG Tab PO SCH (21:49)
[2017-02-04] MEDS: Melatonin 3 MG Tab PO SCH (21:50)
[2017-02-04] MEDS: Mirtazapine 15 MG Tab PO SCH (21:51)
[2017-02-05] MEDS: Acetaminophen 500 MG Tab PO SCH ×3 (02:13→12:24)
[2017-02-05 06:53] VITALS: BP 149/86
[2017-02-05] MEDS: Donepezil 10 MG Tab PO SCH (08:29)
[2017-02-05] MEDS: Losartan 25 MG Tab PO SCH (08:29)
[2017-02-05] MEDS: Furosemide 20 MG Tab PO SCH (08:30)
[2017-02-05] MEDS: Aspirin 81 MG Tab.EC PO SCH (08:30)
[2017-02-05] MEDS: Cyanocobalamin (Vitamin B12) 500 MCG Tab PO SCH (08:30)
[2017-02-05] MEDS: Propranolol 80 MG Cap.ER PO SCH (08:30)
[2017-02-05] MEDS: Cholecalciferol (Vitamin D3) 1,000 Unit Tab PO SCH (08:30)
[2017-02-05] MEDS: Calcium Carbonate 500 MG Tab.Chew PO SCH (08:30)
[2017-02-05] MEDS: Primidone 50 MG Tab PO SCH (08:31)
[2017-02-05] MEDS: Acetaminophen/HYDROcodone 325-5 MG Tab PO PRN (12:24)
== END 2017-02-05 13:00 | DRG 561 ==
LOC: KA.MS 11:35 → UNDOADMIN 11:57 → KA.MS 11:57
PROVIDERS: ADMIT Nurse Practitioner Family; ATTEND Family Medicine
DX: S32.592D Other specified fracture of left pubis, subsequent encounter for fracture with routine healing (principal); W10.9XXD Fall (on) (from) unspecified stairs and steps, subsequent encounter; S93.401D Sprain of unspecified ligament of right ankle, subsequent encounter; I10 Essential (primary) hypertension; K52.9 Noninfective gastroenteritis and colitis, unspecified; E78.5 Hyperlipidemia, unspecified; E53.8 Deficiency of other specified B group vitamins; M81.0 Age-related osteoporosis without current pathological fracture; G25.0 Essential tremor; G25.81 Restless legs syndrome; F32.9 Major depressive disorder, single episode, unspecified; G31.84 Mild cognitive impairment of uncertain or unknown etiology; R05 Cough; Y92.230 Patient room in hospital as the place of occurrence of the external cause; T50.995A Adverse effect of other drugs, medicaments and biological substances, initial encounter; Z88.0 Allergy status to penicillin; Z88.8 Allergy status to other drugs, medicaments and biological substances; Z79.899 Other long term (current) drug therapy
CPT/HCPCS: 36415; 80048; 85027; 97012-GP; 97110-GP; 97116-GP; 97140-GP; 97161-GP; 97530-GP; A9270-GY; J1650

== ENCOUNTER 2017-03-27 09:00 | Emergency (ER) | payer MEDICARE, OTHER ==
[2017-03-27 09:32] VITALS: BP 153/55
[2017-03-27] MEDS ORDERED: Ketorolac 30 MG/ML SDV IVPUSH ONE (09:37)
--- NOTE | 2017-03-27 09:42 | EDM.PDOC ---
ED HPI GENERAL MEDICAL PROBLEM - General Chief Complaint: Lower Extremity Injury/Pain Stated Complaint: right hip pain Time Seen by Provider: 03/27/17 09:37 Source of Information: Reports: Patient History Limitations: Reports: No Limitations - History of Present Illness INITIAL COMMENTS - FREE TEXT/NARRATIVE: Patient is an 82-year-old female who presents to the emergency department via EMS for complaint of right hip pain. Patient sustained a pelvic fracture on the left 2 months ago and was seen at [facility] on Monday for pelvic x-ray recheck. Patient states that when she woke Monday morning she had pain in both groins and right hip pain. Patient states that her legs were in position for the x-ray, which was uncomfortable at the time. Patient denies any trauma, fall, fever, abdominal pain, dysuria, extremity edema, chest pain, or shortness of breath. Onset: Gradual Onset Date: 03/25/17 Duration: Day(s): Location: Reports: Lower Extremity, Right Severity: Mild Improves with: Reports: Rest Worsens with: Reports: Movement Context: Denies: Trauma Associated Symptoms: Reports: No Other Symptoms Right Hip Pain Score (Numeric/FACES): 6 - Related Data Allergies Allergy/AdvReac Type Severity Reaction Status Date / Time codeine Allergy Rash Verified 03/27/17 09:32 minocycline Allergy Cannot Verified 03/27/17 09:32 Remember Penicillins Allergy Rash Verified 03/27/17 09:32 ear drops Allergy Rash Uncoded 03/27/17 09:32 METAL Allergy Rash Uncoded 03/27/17 09:32 metal Allergy Rash Uncoded 03/27/17 09:32 Home Meds: Home Meds Aspirin [Halfprin] 81 mg PO DAILY 01/23/14 [History] Donepezil HCl [Aricept] 20 mg PO DAILY 01/23/14 [History] Lactobacillus Combination No.4 [Probiotic] 4 mg PO DAILY 01/23/14 [History] Cyanocobalamin (Vitamin B-12) [B-12] 500 mcg PO DAILY 11/08/16 [History] Ketoconazole [Nizoral 2% Shampoo] 1 applic TOP DAILY 11/08/16 [History] Loperamide [Imodium] 2 mg PO DAILY 11/08/16 [History] Calcium Carbonate [Calcium] 600 mg PO DAILY 01/14/17 [History] Cholecalciferol (Vitamin D3) [Vitamin D] 2,000 unit PO DAILY 01/14/17 [History] Furosemide 20 mg PO DAILY 01/14/17 [History] Mirtazapine 30 mg PO BEDTIME 01/14/17 [History] [place]-3/DHA/Epa/Fish Oil [Fish Oil 1,000 mg Softgel] 1 each PO DAILY 01/14/17 [ History] Pramipexole Di-HCl [Mirapex] 1.5 mg PO DAILY@1700 01/14/17 [History] Primidone 150 mg PO BID 01/14/17 [History] Propranolol [Inderal LA] 60 mg PO BEDTIME 01/14/17 [History] Vit A/Vit C/Vit E/Zinc/Copper [Preservision Areds Softgel] 1 tab PO DAILY [History] Acetaminophen [Tylenol Extra Strength] 500 mg PO Q6H tablet 02/03/17 [Rx] Acetaminophen/HYDROcodone [[place] 325-5 MG] 1 tab PO Q4H PRN #10 tablet 02/03/17 [Rx] Losartan [Cozaar] 25 mg PO DAILY #5 tablet 02/03/17 [Rx] Past Medical History HEENT History: Reports: Cataract, Impaired Vision, Macular Degeneration, Other ( See Below) Other HEENT History: myopia Cardiovascular History: Reports: High Cholesterol, Heart Murmur, Hypertension Gastrointestinal History: Reports: Chronic Diarrhea, Other (See Below) Other Gastrointestinal History: lymphocytic colitis CERTIFIED NURSING ATTENDANT History: Reports: Other OB/BYN History: 3 children Musculoskeletal History: Reports: Arthritis, Other (See Below), Osteoarthritis Other Musculoskeletal History: knee pain, bilateral leg pain Neurological History: Reports: Other (See Below) Other Neuro History: Restless Leg Syndrome, Essential Tremor Psychiatric History: Reports: Depression, Other (See Below) Other Psychiatric History: Mild Cognitive Impairment Endocrine/Metabolic History: Reports: Osteoporosis, Osteopenia Hematologic History: Reports: Other (See Below) Other Hematologic History: elevated ferritin Dermatologic History: Reports: Other (See Below) Other Dermatologic History: seborrheic keratoses - Past Surgical History Cardiovascular Surgical History: Reports: None GI Surgical History: Reports: Other (See Below) Other GI Surgeries/Procedures: stimulation implant Social & Family History - Family History Family Medical History: Unobtainable - Tobacco Use Smoking Status *Q: Never Smoker Second Hand Smoke Exposure: No - Caffeine Use Caffeine Use: Reports: Coffee - Alcohol Use Days Per Week of Alcohol Use: 7 Number of Drinks Per Day: 1 Total Drinks Per Week: 7 - Recreational Drug Use Recreational Drug Use: No Review of Systems - Review of Systems Review Of Systems: ROS reveals no pertinent complaints other than HPI. Constitutional: Reports: No Symptoms Eyes: Reports: No Symptoms Ears: Reports: No Symptoms Nose: Reports: No Symptoms Mouth/Throat: Reports: No Symptoms Respiratory: Reports: No Symptoms Cardiovascular: Reports: No Symptoms GI/Abdominal: Reports: No Symptoms Genitourinary: Reports: No Symptoms Musculoskeletal: Reports: Leg Pain, Joint Pain (Right hip) Skin: Reports: No Symptoms Neurological: Reports: No Symptoms Psychiatric: Reports: No Symptoms ED EXAM, GENERAL - Physical Exam Exam: See Below Exam Limited By: No Limitations General Appearance: Alert, WD/WN, No Apparent Distress Throat/Mouth: Normal Inspection, Normal Oropharynx, No Airway Compromise Head: Atraumatic, Normocephalic Neck: Normal Inspection Respiratory/Chest: No Respiratory Distress, Lungs Clear, Normal Breath Sounds, No Accessory Muscle Use, Chest Non-Tender Cardiovascular: Regular Rate, Rhythm GI/Abdominal: Normal Bowel Sounds, Soft, Non-Tender Back Exam: Normal Inspection. No: CVA Tenderness (L), CVA Tenderness (R) Extremities: No Pedal Edema, Leg Pain (Right hip with palpation. No range of motion limitation, leg shortening, extremity edema, or neurovascular deficit noted) Neurological: Alert, Oriented, Normal Cognition Psychiatric: Normal Affect, Normal Mood Skin Exam: Warm, Dry, Intact, Normal Color, No Rash Lymphatic: No Adenopathy Course - Vital Signs Last Recorded V/S: Last Vital Signs Temp 97.4 F 03/27/17 09:10 Pulse 72 03/27/17 09:10 Resp 16 03/27/17 09:10 BP 153/55 H 03/27/17 09:10 Pulse Ox 99 03/27/17 09:10 - Orders/Labs/Meds Orders: Active Orders 24 hr Category Date Time Status Ketorolac [Toradol] Med 03/27/17 09:37 Once 30 mg IVPUSH ONETIME ONE - Radiology Interpretation Free Text/Narrative:: X-ray performed on Monday shows an inferior pubic ramus fracture, but no fracture, dislocation, or bony abnormality on the right. - Re-Assessments/Exams Free Text/Narrative Re-Assessment/Exam: 03/27/17 10:02 Patient afebrile, nontoxic appearing, vital signs stable. Pain subsided. X- rays that were taken on Monday have been reviewed and documented. Discussed case with David Leblanc provider for consideration that patient does live alone. She recommended the patient follow-up tomorrow [facility]. Departure - Departure Time of Disposition: 10:05 Disposition: Home, Self-Care 01 Condition: Fair Clinical Impression: Pelvic ring fracture with routine healing, Hip pain, right, Musculoskeletal pain - Discharge Information Instructions: Hip Pain, Pain Medicine Instructions, [id number], Simple Pelvic Fracture, Adult Referrals: Shobha Wood, CUTTING MACHINE TENDER [Primary Care Provider] - Additional Instructions: Follow-up at [facility] tomorrow. Take any pain medicine as directed, and with caution. Use ice as directed. Return to the emergency department if pain continues or worsens. - My Orders Last 24 Hours: My Active Orders 03/27/17 09:37 Ketorolac [Toradol] 30 mg IVPUSH ONETIME ONE - Assessment/Plan Last 24 Hours: My Active Orders 03/27/17 09:37 Ketorolac [Toradol] 30 mg IVPUSH ONETIME ONE Assessment:: Status post pelvic fracture pain Plan: Follow up with [facility] tomorrow
[2017-03-27] MEDS ORDERED: Ketorolac 30 MG/ML SDV IM ONE (09:50)
== END 2017-03-27 11:15 | disposition home or self-care (01) ==
LOC: KA.ED 09:00
DX: S32.89XD Fracture of other parts of pelvis, subsequent encounter for fracture with routine healing (principal); E78.00 Pure hypercholesterolemia, unspecified; I10 Essential (primary) hypertension; Z88.5 Allergy status to narcotic agent; Z88.0 Allergy status to penicillin; Z79.82 Long term (current) use of aspirin; Z79.899 Other long term (current) drug therapy; X58.XXXD Exposure to other specified factors, subsequent encounter
CPT/HCPCS: 96372; 99283; J1885

== ENCOUNTER 2017-04-07 10:58 | Emergency (ER) | payer MEDICARE, OTHER ==
--- NOTE | 2017-04-07 11:37 | EDM.PDOC ---
ED HPI GENERAL MEDICAL PROBLEM - General Chief Complaint: General Time Seen by Provider: 04/07/17 11:03 Source of Information: Reports: Patient, Other (assisted living staffer) History Limitations: Reports: No Limitations - History of Present Illness INITIAL COMMENTS - FREE TEXT/NARRATIVE: Patient presents with complaint of tingling and numbness in bilat lateral thighs and bilat lateral calves as well as increased low back pain for the last 3 days. Nearly 3 months ago she had a non-displaced left pubic rami fracture and spent a month non-WTB here in [facility]. Then she went to a [place] in [place] where her daughter lives and did PT and partial WTB. She has been back in [facility] assisted living for a few weeks and was progressing fairly well until two weeks ago. She was in [facility] and had a follow up xray to confirm healing and says that after the xray (which involved spreading her legs quite significantly) she got home and that evening had increased pain. She has been taking hydrodocone 1 tab q 6 hours but the last 3 days needs 2 tabs q6h along with Ibuprofen 600 mg bid. The pain is only when she is WTB and is not in pain now on the bed. Left Leg Pain Score (Numeric/FACES): 5 - Related Data Allergies Allergy/AdvReac Type Severity Reaction Status Date / Time codeine Allergy Rash Verified 04/07/17 11:10 minocycline Allergy Cannot Verified 04/07/17 11:10 Remember Penicillins Allergy Rash Verified 04/07/17 11:10 ear drops Allergy Rash Uncoded 03/27/17 09:32 METAL Allergy Rash Uncoded 03/27/17 09:32 Home Meds: Home Meds Aspirin [Halfprin] 81 mg PO DAILY 01/23/14 [History] Donepezil HCl [Aricept] 20 mg PO DAILY 01/23/14 [History] Lactobacillus Combination No.4 [Probiotic] 4 mg PO DAILY 01/23/14 [History] Cyanocobalamin (Vitamin B-12) [B-12] 500 mcg PO DAILY 11/08/16 [History] Ketoconazole [Nizoral 2% Shampoo] 1 applic TOP DAILY 11/08/16 [History] Loperamide [Imodium] 2 mg PO DAILY 11/08/16 [History] Calcium Carbonate [Calcium] 600 mg PO DAILY 01/14/17 [History] Cholecalciferol (Vitamin D3) [Vitamin D] 2,000 unit PO DAILY 01/14/17 [History] Furosemide 20 mg PO BID 01/14/17 [History] Mirtazapine 30 mg PO BEDTIME 01/14/17 [History] [place]-3/DHA/Epa/Fish Oil [Fish Oil 1,000 mg Softgel] 1 each PO DAILY 01/14/17 [ History] Pramipexole Di-HCl [Mirapex] 1.5 mg PO DAILY@1700 01/14/17 [History] Primidone 150 mg PO BID 01/14/17 [History] Propranolol [Inderal LA] 60 mg PO BEDTIME 01/14/17 [History] Vit A/Vit C/Vit E/Zinc/Copper [Preservision Areds Softgel] 1 tab PO DAILY [History] Acetaminophen [Tylenol Extra Strength] 500 mg PO Q6H tablet 02/03/17 [Rx] Losartan [Cozaar] 25 mg PO DAILY #5 tablet 02/03/17 [Rx] Alum Hydrox/Mag Hydrox/Simeth [Mag-Al Plus] 30 ml PO DAILY PRN 03/27/17 [History ] Hydrocodone/Acetaminophen [[place] 5-325 Tablet] 1 - 2 each PO Q6HR PRN 03/27/17 [ History] Past Medical History HEENT History: Reports: Cataract, Impaired Vision, Macular Degeneration, Other ( See Below) Other HEENT History: myopia Cardiovascular History: Reports: High Cholesterol, Heart Murmur, Hypertension Gastrointestinal History: Reports: Chronic Diarrhea, Other (See Below) Other Gastrointestinal History: lymphocytic colitis LEAD ARCHITECT History: Reports: Other OB/BYN History: 3 children Musculoskeletal History: Reports: Arthritis, Other (See Below), Osteoarthritis Other Musculoskeletal History: knee pain, bilateral leg pain Neurological History: Reports: Other (See Below) Other Neuro History: Restless Leg Syndrome, Essential Tremor Psychiatric History: Reports: Depression, Other (See Below) Other Psychiatric History: Mild Cognitive Impairment Endocrine/Metabolic History: Reports: Osteoporosis, Osteopenia Hematologic History: Reports: Other (See Below) Other Hematologic History: elevated ferritin Dermatologic History: Reports: Other (See Below) Other Dermatologic History: seborrheic keratoses - Past Surgical History Cardiovascular Surgical History: Reports: None GI Surgical History: Reports: Other (See Below) Other GI Surgeries/Procedures: stimulation implant Social & Family History - Family History Family Medical History: Unobtainable - Tobacco Use Smoking Status *Q: Never Smoker Second Hand Smoke Exposure: No - Caffeine Use Caffeine Use: Reports: Coffee - Alcohol Use Days Per Week of Alcohol Use: 7 Number of Drinks Per Day: 1 Total Drinks Per Week: 7 - Recreational Drug Use Recreational Drug Use: No ED ROS GENERAL - Review of Systems Review Of Systems: See Below Constitutional: Denies: Fever, Chills, Malaise, Weakness HEENT: Denies: Throat Pain, Vision Change Respiratory: Denies: Shortness of Breath, Cough Cardiovascular: Denies: Chest Pain, Lightheadedness, Syncope GI/Abdominal: Reports: Constipation (with all the narcotics; otherwise she is usually treating for diarrhea). Denies: Abdominal Pain, Vomiting : Denies: Dysuria, Flank Pain Musculoskeletal: Reports: Back Pain. Denies: Neck Pain, Shoulder Pain, Arm Pain , Hand Pain, Leg Pain, Foot Pain Skin: Denies: Cyanosis, Jaundice, Mottled, Pallor, Diaphoresis Neurological: Denies: Confusion, Dizziness, Headache Psychiatric: Denies: Agitation, Anxiety, Confusion ED EXAM, GENERAL - Physical Exam Exam: See Below Exam Limited By: No Limitations General Appearance: Alert, WD/WN, No Apparent Distress Eye Exam: Bilateral Eye: EOMI, Normal Inspection, PERRL Ears: Normal External Exam, Hearing Grossly Normal Nose: Normal Inspection, No Blood Throat/Mouth: Normal Inspection, Normal Lips, Normal Voice, No Airway Compromise Head: Atraumatic, Normocephalic Neck: Normal Inspection Respiratory/Chest: No Respiratory Distress, Lungs Clear, Normal Breath Sounds Cardiovascular: Regular Rate, Rhythm, No Murmur GI/Abdominal: Normal Bowel Sounds, Soft, Non-Tender, No Organomegaly, No Distention Back Exam: No: CVA Tenderness (L), CVA Tenderness (R) Extremities: Normal Range of Motion, No Pedal Edema, Normal Capillary Refill, Other (palpation of lateral thighs are somewhat tender but sensitive to touch; patient cannot raise legs from table due to back pain with attempts. ) Neurological: Alert, Oriented, Normal Cognition, No Motor/Sensory Deficits, Other (normal plantar/dorsiflexion bilat). No: Sensory/Motor Deficit Psychiatric: Normal Affect, Normal Mood Skin Exam: Warm, Dry, Intact, Normal Color, No Rash Course - Vital Signs Last Recorded V/S: Last Vital Signs Temp 96.9 F 04/07/17 11:07 Pulse 67 04/07/17 11:07 Resp 20 04/07/17 11:07 BP 157/56 H 04/07/17 11:07 Pulse Ox 94 L 04/07/17 11:07 - Re-Assessments/Exams Free Text/Narrative Re-Assessment/Exam: 04/07/17 13:10 Xrays reveal no change in position of rami fractures with evidence of healing taking place. Discussed findings with patient and nurse. Patient and assisted living nurse requested hospitalization or NH which we checked into. Bharat Paul discussed options with them and they wish to return to assisted living today. Patient discharged in stable condition. Departure - Departure Time of Disposition: 13:07 Disposition: Home, Self-Care 01 Condition: Good Clinical Impression: Fracture of pubic ramus with routine healing Qualifiers: Fracture type: closed Laterality: left Qualified Code(s): S32.592D - Other specified fracture of left pubis, subsequent encounter for fracture with routine healing - Discharge Information Additional Instructions: 1. Use your pain medications as directed and needed. 2. Follow up with your PCP in 3-4 days if not improving.
[2017-04-07 13:38] VITALS: BP 119/48
== END 2017-04-07 13:27 | disposition home or self-care (01) ==
LOC: KA.ED 10:58
DX: S32.592D Other specified fracture of left pubis, subsequent encounter for fracture with routine healing (principal); E78.00 Pure hypercholesterolemia, unspecified; I10 Essential (primary) hypertension; Z88.5 Allergy status to narcotic agent; Z88.0 Allergy status to penicillin; Z88.1 Allergy status to other antibiotic agents; Z79.82 Long term (current) use of aspirin; Z79.899 Other long term (current) drug therapy; X58.XXXD Exposure to other specified factors, subsequent encounter
CPT/HCPCS: 72170; 99283; 99285

== ENCOUNTER 2018-10-09 17:02 | Observation (INO) | payer MEDICARE, OTHER ==
[2018-10-09] MEDS ORDERED: Sodium Chloride 0.9% 10 ML Syringe FLUSH PRN ×3 (17:28→19:57)
--- NOTE | 2018-10-09 17:34 | EDM.PDOC ---
ED HPI GENERAL MEDICAL PROBLEM - General Chief Complaint: Headache Stated Complaint: HEADACHE, S/P CATARACTS-10/08/18 Time Seen by Provider: 10/09/18 17:10 Source of Information: Reports: Patient, Family History Limitations: Reports: No Limitations - History of Present Illness INITIAL COMMENTS - FREE TEXT/NARRATIVE: 83 YO WF presents to ER with complaints of occipital JORGE with mild neck discomfort since 4pm today. Pt reports she had bilaterfal cataract surgery yesterday and was recovering well when she developed mild dizziness earlier today followed by occipital headache and neck pain. Pt denies nausea/vomiting, fever/chills, weakness, numbness or difficulty standing. Pt reports she can't see well since her eye surgery yesterday so she hasn't been ambulating much. Pt is alert and oriented x 4. Pt denies chest pain, or diaphoresis. Pt reports she rarely gets headaches. Onset: Today Onset Date: 10/09/18 Onset Time: 16:00 Location: Reports: Head, Neck Quality: Reports: Ache Severity: Moderate Improves with: Reports: None Worsens with: Reports: Other (dizziness is worse with standing or sitting up) Associated Symptoms: Reports: No Other Symptoms Posterior Head Pain Score (Numeric/FACES): 5 - Related Data Allergies Allergy/AdvReac Type Severity Reaction Status Date / Time codeine Allergy Rash Verified 10/09/18 17:14 minocycline Allergy Cannot Verified 10/09/18 17:14 Remember Penicillins Allergy Rash Verified 10/09/18 17:14 ear drops Allergy Rash Uncoded 10/09/18 17:14 METAL Allergy Rash Uncoded 10/09/18 17:14 Home Meds: Home Meds Aspirin [Halfprin] 81 mg PO DAILY 01/23/14 [History] Donepezil HCl [Aricept] 20 mg PO DAILY 01/23/14 [History] Lactobacillus Combination No.4 [Probiotic] 4 mg PO DAILY 01/23/14 [History] Cyanocobalamin (Vitamin B-12) [B-12] 500 mcg PO DAILY 11/08/16 [History] Ketoconazole [Nizoral 2% Shampoo] 1 applic TOP DAILY 11/08/16 [History] Loperamide [Imodium] 2 mg PO DAILY 11/08/16 [History] Cholecalciferol (Vitamin D3) [Vitamin D] 2,000 unit PO DAILY 01/14/17 [History] Furosemide 40 mg PO BID 01/14/17 [History] Mirtazapine 45 mg PO BEDTIME 01/14/17 [History] [place]-3/DHA/Epa/Fish Oil [Fish Oil 1,000 mg Softgel] 1 each PO DAILY 01/14/17 [ History] Pramipexole Di-HCl [Mirapex] 1.5 mg PO DAILY@1700 01/14/17 [History] Primidone 150 mg PO BID 01/14/17 [History] Propranolol [Inderal LA] 60 mg PO BEDTIME 01/14/17 [History] Vit A/Vit C/Vit E/Zinc/Copper [Preservision Areds Softgel] 1 tab PO BID [History] Acetaminophen [Tylenol Extra Strength] 500 mg PO Q6H tablet 02/03/17 [Rx] Alum Hydrox/Mag Hydrox/Simeth [Mag-Al Plus] 30 ml PO DAILY PRN 03/27/17 [History ] Calcium Carbonate/Vitamin D3 [Calcium 600-Vit D3 800 Caplet] 1 tab PO DAILY [History] Clopidogrel [Plavix] 75 mg PO DAILY 10/09/18 [History] DULoxetine HCl [Duloxetine HCl] 60 mg PO DAILY 10/09/18 [History] Diphenoxylate HCl/Atropine [Diphenoxylate-Atrop 2.5-0.025] 1 each PO ASDIRECTED PRN MDD 8 10/09/18 [History] Levothyroxine 25 mcg PO DAILY 10/09/18 [History] Losartan [Cozaar] 50 mg PO DAILY 10/09/18 [History] Meloxicam 7.5 mg PO DAILY 10/09/18 [History] Memantine HCl 10 mg PO BID 10/09/18 [History] Polyethylene Glycol 3350 [Miralax] 17 gram PO DAILY 10/09/18 [History] Potassium Chloride [Klor-Con 10] 10 meq PO BID 10/09/18 [History] Rosuvastatin Calcium 20 mg PO BEDTIME 10/09/18 [History] Past Medical History HEENT History: Reports: Cataract, Impaired Vision, Macular Degeneration, Other ( See Below) Other HEENT History: myopia Cardiovascular History: Reports: High Cholesterol, Heart Murmur, Hypertension Gastrointestinal History: Reports: Chronic Diarrhea, Other (See Below) Other Gastrointestinal History: lymphocytic colitis [employer] TE[employer]ICAL [employer]CHIT[employer] History: Reports: Other [employer] 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 Musculoskeletal History: Reports: Arthritis, Other (See Below), Osteoarthritis Other Musculoskeletal History: knee pain, bilateral leg pain Neurological History: Reports: Other (See Below) Other Neuro History: Restless Leg Syndrome, Essential Tremor Psychiatric History: Reports: Depression, Other (See Below) Other Psychiatric History: Mild Cognitive Impairment Endocrine/Metabolic History: Reports: Osteoporosis, Osteopenia Hematologic History: Reports: Other (See Below) Other Hematologic History: elevated ferritin Dermatologic History: Reports: Other (See Below) Other Dermatologic History: seborrheic keratoses - Past Surgical History Cardiovascular Surgical History: Reports: None GI Surgical History: Reports: Other (See Below) Other GI Surgeries/Procedures: stimulation implant Social & Family History - Family History Family Medical History: Unobtainable - Caffeine Use Caffeine Use: Reports: Coffee ED ROS GENERAL - Review of Systems Review Of Systems: See Below Constitutional: Reports: No Symptoms HEENT: Reports: No Symptoms Respiratory: Reports: No Symptoms Cardiovascular: Reports: No Symptoms, Blood Pressure Problem Endocrine: Reports: No Symptoms GI/Abdominal: Reports: No Symptoms : Reports: No Symptoms Musculoskeletal: Reports: Neck Pain. Denies: Arm Pain Skin: Reports: No Symptoms Neurological: Reports: Dizziness, Headache. Denies: Confusion, Numbness, Paresthesia, Pre-Existing Deficit, Seizure, Syncope, Tingling, Tremors, Trouble Speaking, Weakness, Change in Speech, Gait Disturbance Psychiatric: Reports: No Symptoms Hematologic/Lymphatic: Reports: No Symptoms Immunologic: Reports: No Symptoms - Physical Exam Exam: See Below Exam Limited By: No Limitations General Appearance: Alert, WD/WN, Mild Distress Eye Exam: Bilateral Eye: EOMI Throat/Mouth: Normal Inspection, Normal Lips, Normal Teeth, Normal Gums, Normal Oropharynx, Normal Voice, No Airway Compromise Head Exam: Atraumatic, Normocephalic Neck: Normal Inspection, Supple, Non-Tender, Full Range of Motion Respiratory/Chest: No Respiratory Distress, Lungs Clear, Normal Breath Sounds, No Accessory Muscle Use, Chest Non-Tender Cardiovascular: Normal Peripheral Pulses, Regular Rate, Rhythm, No Edema, No Gallop, No JVD, No Murmur, No Rub GI/Abdominal: Normal Bowel Sounds, Soft, Non-Tender, No Organomegaly, No Distention, No Abnormal Bruit, No Mass Neuro Exam (Abbreviated): Alert, Oriented, CN II-XII Intact, Normal Cognition, Normal Gait, Normal Reflexes, No Motor/Sensory Deficits Back Exam: Normal Inspection, Full Range of Motion, NT Extremities: Normal Inspection, Normal Range of Motion, Non-Tender, No Pedal Edema, Normal Capillary Refill Psychiatric: Normal Affect, Normal Mood Skin Exam: Warm, Dry, Intact, Normal Color, No Rash Course - Vital Signs Last Recorded V/S: Last Vital Signs Temp 36.9 C 10/09/18 17:15 Pulse 64 10/09/18 18:05 Resp 18 10/09/18 18:05 BP 170/64 H 10/09/18 18:05 Pulse Ox 95 10/09/18 18:05 - Orders/Labs/Meds Orders: Active Orders 24 hr Category Date Time Status Peripheral IV Care [RC] . DIRECTED Care 10/09/18 17:28 Active Sodium Chloride 0.9% [Saline Flush] Med 10/09/18 17:28 Active 10 ml FLUSH Q8HR PRN Peripheral IV Insertion Adult [OM.PC] Routine Oth 10/09/18 17:28 Ordered Medication Orders Sodium Chloride (Saline Flush) 10 ml FLUSH Q8HR PRN PRN Reason: keep vein open Labs: Laboratory Tests 10/09/18 10/09/18 Range/Units 17:50 17:50 WBC 4.53 L (5.00-10.00) 10^3/uL RBC 2.87 L (3.80-5.50) 10^6/uL Hgb 10.4 L (12.0-16.0) g/dL Hct 30.8 L (37.0-47.0) % MCV 107.3 H D (82.0-92.0) fL MCH 36.2 H (27.0-31.0) pg MCHC 33.8 (32.0-36.0) g/dL RDW 14.0 (11.5-14.5) % Plt Count 111 L (150-400) 10^3/uL MPV 9.5 (7.4-10.4) fL Immature Gran % (Auto) 0.7 (0.0-5.0) % Neut % (Auto) 57.7 (50.0-70.0) % Lymph % (Auto) 30.2 (20.0-40.0) % [place] % (Auto) 7.9 (2.0-8.0) % Eos % (Auto) 3.1 H (1.0-3.0) % Baso % (Auto) 0.4 (0.0-1.0) % Immature Gran # (Auto) 0.03 (0.00-0.50) 10^3/uL Neut # (Auto) 2.61 (2.50-7.00) 10^3/uL Lymph # (Auto) 1.37 (1.00-4.00) 10^3/uL [place] # (Auto) 0.36 (0.10-0.80) 10^3/uL Eos # (Auto) 0.14 (0.10-0.30) 10^3/uL Baso # (Auto) 0.02 (0.00-0.10) 10^3/uL Sodium 142 (136-145) mmol/L Potassium 4.2 (3.3-5.3) mmol/L Chloride 105 (98-115) mmol/L Carbon Dioxide 28.5 (21.0-32.0) mmol/L Anion Gap 12.7 (5-15) mmol/L BUN 18 (6-25) mg/dL Creatinine 0.78 (0.51-1.17) mg/dL Est Cr Clr Drug Dosing 41.24 mL/min Estimated GFR (MDRD) > 60 mL/min Glucose 106 H (75 - 99) mg/dL Calcium 8.8 (8.7-10.3) mg/dL Meds: Medications Generic Name Dose Route Start Last Admin Trade Name Freq PRN Reason Stop Dose Admin Sodium Chloride 10 ml 10/09/18 17:28 Saline Flush FLUSH Q8HR PRN keep vein open Discontinued Medications Generic Name Dose Route Start Last Admin Trade Name Freq PRN Reason Stop Dose Admin Diphenhydramine HCl 25 mg 10/09/18 17:57 Benadryl IVPUSH 10/09/18 17:58 ONETIME ONE Ketorolac Tromethamine 30 mg 10/09/18 17:57 Toradol IVPUSH 10/09/18 17:58 ONETIME ONE Metoclopramide HCl 5 mg 10/09/18 17:57 Reglan IVPUSH 10/09/18 17:58 ONETIME ONE - Radiology Interpretation Free Text/Narrative:: CT Head- NAD - Re-Assessments/Exams Free Text/Narrative Re-Assessment/Exam: 10/09/18 18:21 Pt is feeling better after medications but after a lengthy discussion regarding dizziness and recent eye surgery family is asking for 23 hour obs for monitoring before discharge in am. Departure - Departure Time of Disposition: 18:33 Disposition: Refer to Observation Condition: Fair Clinical Impression: Headache Qualifiers: Headache type: tension-type Headache chronicity pattern: acute headache Intractability: not intractable Qualified Code(s): G44.209 - Tension-type headache, unspecified, not intractable - Discharge Information Referrals: Ayaka Yousif MD [Primary Care Provider] - Forms: ED Department Discharge - My Orders Last 24 Hours: My Active Orders 10/09/18 17:28 Peripheral IV Care [RC] . DIRECTED Sodium Chloride 0.9% [Saline Flush] 10 ml FLUSH Q8HR PRN Peripheral IV Insertion Adult [OM.PC] Routine - Assessment/Plan Last 24 Hours: My Active Orders 10/09/18 17:28 Peripheral IV Care [RC] . DIRECTED Sodium Chloride 0.9% [Saline Flush] 10 ml FLUSH Q8HR PRN Peripheral IV Insertion Adult [OM.PC] Routine Assessment:: 1. Headache-improved 2. Dizziness- improved Plan: 1. Discussed case with Nithya Wang PA-C who will observe in hospital overnight 2. NS @75cc/hr 3. supportive care
--- NOTE | 2018-10-09 17:56 | CT ---
[id number] CT/CT Head WO IV EXAM: NONCONTRAST HEAD CT INDICATION: HEADACHE. COMPARISON: November 08, 2016. DISCUSSION: Stable mild generalized atrophy. Stable mild chronic small vessel ischemic changes. No mass effect or midline shift. No acute hemorrhage or extra-axial fluid collection. No acute territorial infarct is identified. Minor focal left maxillary sinus mucosal thickening is unchanged. IMPRESSION: 1. No acute findings. Familia Price MD 10/09/18 [id number] Thank you for allowing us to participate in the care of your patient.
[2018-10-09] MEDS ORDERED: Metoclopramide 10 MG/2 ML SDV IVPUSH ONE (17:57)
[2018-10-09] MEDS ORDERED: diphenhydrAMINE 50 MG/ML SDV IVPUSH ONE (17:57)
[2018-10-09] MEDS ORDERED: Ketorolac 30 MG/ML SDV IVPUSH ONE (17:57)
[2018-10-09 18:14] LABS: ANION GAP 12.7 mmol/L (5-15); CHLORIDE,CL 105 mmol/L (98-115); SODIUM,NA 142 mmol/L (136-145)
[2018-10-09] MEDS ORDERED: Acetaminophen 325 MG Tab PO PRN (18:34)
[2018-10-09] MEDS ORDERED: Ibuprofen 600 MG Tab PO PRN (18:34)
[2018-10-09] MEDS ORDERED: Propranolol 60 MG Cap.ER PO ONE (18:36)
[2018-10-09] MEDS ORDERED: Propranolol 80 MG Cap.ER PO ONE (19:20)
[2018-10-09] MEDS: Sodium Chloride 0.9% 1,000 ML IV SCH (19:38)
[2018-10-09] MEDS ORDERED: Atropine/Diphenoxylate 0.025-2.5 MG Tab PO PRN (21:30)
[2018-10-09] MEDS ORDERED: Mirtazapine 15 MG Tab ONE (23:02)
[2018-10-09] MEDS: Acetaminophen 500 MG Tab PO SCH (23:04)
[2018-10-10] MEDS: Acetaminophen 500 MG Tab PO SCH ×2 (04:30→08:56)
[2018-10-10] MEDS ORDERED: Clopidogrel 75 MG Tab PO SCH (09:00)
[2018-10-10] MEDS ORDERED: Cyanocobalamin (Vitamin B12) 500 MCG Tab PO SCH (09:00)
[2018-10-10] MEDS ORDERED: Furosemide 40 MG Tab PO SCH (09:00)
[2018-10-10] MEDS ORDERED: Losartan 50 MG Tab PO SCH (09:00)
[2018-10-10] MEDS ORDERED: Donepezil 10 MG Tab PO SCH (09:00)
[2018-10-10] MEDS ORDERED: Levothyroxine 25 MCG Tab PO SCH (09:00)
[2018-10-10] MEDS ORDERED: DULoxetine 30 MG Cap PO SCH (09:00)
[2018-10-10] MEDS ORDERED: Aspirin 81 MG Tab.EC PO SCH (09:00)
[2018-10-10] MEDS ORDERED: Memantine 10 MG Tab PO SCH (09:00)
[2018-10-10] MEDS ORDERED: Potassium Chloride 10 MEQ Tab.ER PO SCH (09:00)
[2018-10-10] MEDS ORDERED: Cholecalciferol (Vitamin D3) 25 MCG Tab PO SCH (09:00)
[2018-10-10] MEDS ORDERED: Loperamide 2 MG Cap PO SCH (09:00)
[2018-10-10] MEDS ORDERED: Primidone 50 MG Tab PO SCH (09:00)
[2018-10-10] MEDS ORDERED: Calcium Carbonate 500 MG Tab.Chew PO SCH (09:00)
--- NOTE | 2018-10-10 09:21 | PCM.DCSUM1 ---
Discharge Summary - Discharge Data Discharge Date: 10/10/18 Discharge Disposition: Home, Self-Care 01 Condition: Good - Discharge Plan Home Medications: Home Meds Aspirin [Halfprin] 81 mg PO DAILY 01/23/14 [History] Donepezil HCl [Aricept] 20 mg PO DAILY 01/23/14 [History] Lactobacillus Combination No.4 [Probiotic] 4 mg PO DAILY 01/23/14 [History] Cyanocobalamin (Vitamin B-12) [B-12] 500 mcg PO DAILY 11/08/16 [History] Ketoconazole [Nizoral 2% Shampoo] 1 applic TOP DAILY 11/08/16 [History] Loperamide [Imodium] 2 mg PO DAILY 11/08/16 [History] Cholecalciferol (Vitamin D3) [Vitamin D] 2,000 unit PO DAILY 01/14/17 [History] Furosemide 40 mg PO BID 01/14/17 [History] Mirtazapine 45 mg PO BEDTIME 01/14/17 [History] [place]-3/DHA/Epa/Fish Oil [Fish Oil 1,000 mg Softgel] 1,000 mg PO DAILY 01/14/17 [History] Pramipexole Di-HCl [Mirapex] 1.5 mg PO DAILY@1700 01/14/17 [History] Primidone 150 mg PO BID 01/14/17 [History] Propranolol [Inderal LA] 60 mg PO BEDTIME 01/14/17 [History] Vit A/Vit C/Vit E/Zinc/Copper [Preservision Areds Softgel] 1 tab PO BID [History] Acetaminophen [Tylenol Extra Strength] 500 mg PO Q6H tablet 02/03/17 [Rx] Calcium Carbonate 600 mg PO DAILY 10/09/18 [History] Clopidogrel [Plavix] 75 mg PO DAILY 10/09/18 [History] DULoxetine HCl [Duloxetine HCl] 60 mg PO DAILY 10/09/18 [History] Diphenoxylate HCl/Atropine [Diphenoxylate-Atrop 2.5-0.025] 1 each PO ASDIRECTED PRN MDD 8 10/09/18 [History] Levothyroxine 25 mcg PO DAILY 10/09/18 [History] Losartan [Cozaar] 100 mg PO DAILY 10/09/18 [History] Meloxicam 7.5 mg PO DAILY 10/09/18 [History] Memantine HCl 10 mg PO BID 10/09/18 [History] Non-Formulary Medication [NF Drug] 1 drop EYELF QID 10/09/18 [History] Potassium Chloride [Klor-Con 10] 10 meq PO BID 10/09/18 [History] Rosuvastatin Calcium 20 mg PO BEDTIME 10/09/18 [History] Forms: ED Department Discharge Referrals: Ayaka Yousif MD [Primary Care Provider] - - Discharge Summary/Plan Comment DC Time >30 min.: No Discharge Summary/Plan Comment: Please use H&P as combined discharge summary as patient was discharged same day I saw her - Patient Data Vitals - Most Recent: Last Vital Signs Temp 97.0 F 10/10/18 06:43 Pulse 71 10/10/18 06:43 Resp 18 10/10/18 06:43 BP 152/66 H 10/10/18 08:57 Pulse Ox 92 L 10/10/18 06:43 Weight - Most Recent: 172 lb 5 oz I&O - Last 24 hours: Intake & Output 10/09/18 10/10/18 10/10/18 22:59 06:59 14:59 Intake Total 762 Output Total 400 Balance 362 Lab Results - Last 24 hrs: Laboratory Results - last 24 hr 10/09/18 10/09/18 Range/Units 17:50 17:50 WBC 4.53 L (5.00-10.00) 10^3/uL RBC 2.87 L (3.80-5.50) 10^6/uL Hgb 10.4 L (12.0-16.0) g/dL Hct 30.8 L (37.0-47.0) % MCV 107.3 H D (82.0-92.0) fL MCH 36.2 H (27.0-31.0) pg MCHC 33.8 (32.0-36.0) g/dL RDW 14.0 (11.5-14.5) % Plt Count 111 L (150-400) 10^3/uL MPV 9.5 (7.4-10.4) fL Immature Gran % (Auto) 0.7 (0.0-5.0) % Neut % (Auto) 57.7 (50.0-70.0) % Lymph % (Auto) 30.2 (20.0-40.0) % [place] % (Auto) 7.9 (2.0-8.0) % Eos % (Auto) 3.1 H (1.0-3.0) % Baso % (Auto) 0.4 (0.0-1.0) % Immature Gran # (Auto) 0.03 (0.00-0.50) 10^3/uL Neut # (Auto) 2.61 (2.50-7.00) 10^3/uL Lymph # (Auto) 1.37 (1.00-4.00) 10^3/uL [place] # (Auto) 0.36 (0.10-0.80) 10^3/uL Eos # (Auto) 0.14 (0.10-0.30) 10^3/uL Baso # (Auto) 0.02 (0.00-0.10) 10^3/uL Sodium 142 (136-145) mmol/L Potassium 4.2 (3.3-5.3) mmol/L Chloride 105 (98-115) mmol/L Carbon Dioxide 28.5 (21.0-32.0) mmol/L Anion Gap 12.7 (5-15) mmol/L BUN 18 (6-25) mg/dL Creatinine 0.78 (0.51-1.17) mg/dL Est Cr Clr Drug Dosing 41.24 mL/min Estimated GFR (MDRD) > 60 mL/min Glucose 106 H (75 - 99) mg/dL Calcium 8.8 (8.7-10.3) mg/dL Med Orders - Current: Current Medications Acetaminophen (Tylenol) 650 mg PO Q4H PRN PRN Reason: Pain (Mild 1-3)/fever Acetaminophen (Tylenol Extra Strength) 500 mg PO Q6H [facility] Last Admin: 10/10/18 08:56 Dose: 500 mg Aspirin (Halfprin) 81 mg PO DAILY [facility] Last Admin: 10/10/18 08:55 Dose: 81 mg Calcium Carbonate/Glycine (Tums) 500 mg PO DAILY [facility] Last Admin: 10/10/18 08:55 Dose: 500 mg Cholecalciferol (Vitamin D3) 50 mcg PO DAILY [facility] Last Admin: 10/10/18 08:54 Dose: 50 mcg Clopidogrel Bisulfate (Plavix) 75 mg PO DAILY [facility] Last Admin: 10/10/18 08:56 Dose: 75 mg Cyanocobalamin (Vitamin B12) 500 mcg PO DAILY [facility] Last Admin: 10/10/18 08:57 Dose: 500 mcg Diphenoxylate HCl/Atropine (Lomotil 0.025-2.5 Mg) 1 tab PO ASDIRECTED PRN PRN Reason: Diarrhea Donepezil HCl (Aricept) 20 mg PO DAILY [facility] Last Admin: 10/10/18 08:55 Dose: 20 mg Duloxetine HCl (Cymbalta) 60 mg PO DAILY [facility] Last Admin: 10/10/18 08:54 Dose: 60 mg Furosemide (Lasix) 40 mg PO BID [facility] Last Admin: 10/10/18 08:57 Dose: 40 mg Sodium Chloride (Normal Saline) 1,000 mls @ 75 mls/hr IV ASDIRECTED [facility] Last Admin: 10/09/18 19:38 Dose: 75 mls/hr Ibuprofen (Motrin) 600 mg PO Q6H PRN PRN Reason: Pain (mild 1-3) Levothyroxine Sodium (Levothyroxine) 25 mcg PO DAILY [facility] Last Admin: 10/10/18 08:56 Dose: 25 mcg Loperamide HCl (Imodium) 2 mg PO DAILY [facility] Last Admin: 10/10/18 08:55 Dose: 2 mg Losartan Potassium (Cozaar) 100 mg PO DAILY [facility] Last Admin: 10/10/18 08:57 Dose: 100 mg Meloxicam (Mobic) 7.5 mg PO DAILY [facility] Last Admin: 10/10/18 08:52 Dose: 7.5 mg Memantine (Namenda) 10 mg PO BID [facility] Last Admin: 10/10/18 08:57 Dose: 10 mg Mirtazapine (Remeron) 45 mg PO BEDTIME [facility] Last Admin: 10/09/18 23:04 Dose: 45 mg Potassium Chloride (Klor-Con 10) 10 meq PO BID [facility] Last Admin: 10/10/18 08:56 Dose: 10 meq Pramipexole Dihydrochloride (Mirapex) 1.5 mg PO DAILY@1700 [facility] Primidone (Mysoline) 150 mg PO BID [facility] Last Admin: 10/10/18 09:00 Dose: 150 mg Propranolol HCl (Inderal La) 60 mg PO BEDTIME [facility] Rosuvastatin Calcium (Crestor) 20 mg PO BEDTIME [facility] Sodium Chloride (Saline Flush) 10 ml FLUSH Q8HR PRN PRN Reason: IV Use Discontinued Medications Diphenhydramine HCl (Benadryl) 25 mg IVPUSH ONETIME ONE Stop: 10/09/18 17:58 Last Admin: 10/09/18 18:14 Dose: 25 mg Ketorolac Tromethamine (Toradol) 30 mg IVPUSH ONETIME ONE Stop: 10/09/18 17:58 Last Admin: 10/09/18 18:16 Dose: 30 mg Metoclopramide HCl (Reglan) 5 mg IVPUSH ONETIME ONE Stop: 10/09/18 17:58 Last Admin: 10/09/18 18:10 Dose: 5 mg Mirtazapine (Remeron) Confirm Administered Dose 45 mg .ROUTE .STK-MED ONE Stop: 10/09/18 23:03 Last Admin: 10/10/18 02:57 Dose: Not Given Propranolol HCl (Inderal La) 60 mg PO ONETIME ONE Stop: 10/09/18 18:37 Last Admin: 10/09/18 19:39 Dose: Not Given Propranolol HCl (Inderal La) 80 mg PO ONETIME ONE Stop: 10/09/18 19:21 Last Admin: 10/09/18 19:35 Dose: 80 mg Sodium Chloride (Saline Flush) 10 ml FLUSH Q8HR PRN PRN Reason: keep vein open Last Admin: 10/09/18 18:30 Dose: 10 ml Sodium Chloride (Saline Flush) 10 ml FLUSH Q8HR PRN PRN Reason: keep vein open
[2018-10-10] MEDS: Sodium Chloride 0.9% 1,000 ML IV SCH (09:37)
--- NOTE | 2018-10-10 09:51 | PCM.HP.2 ---
H&P History of Present Illness - General Date of Service: 10/10/18 Admit Problem/Dx: Admission Diagnosis/Problem Admission Diagnosis/Problem Headache - History of Present Illness Initial Comments - Free Text/Narative: Very pleasant 83 YO FEMALE WAS ADMITTED THROUGH THE ED [facility] when she started having headaches (which she states are rare) neck discomfort and some lightheadedness started approximately 4pm the day of admission. She was ~24 hrs post cataract surgery and admitted recovering well even going shopping thereafter in [place] however she started developing mild dizziness (denied room spinning) that day with accompanying occipital headache and neck pain. She states her family thought she was quite pale. In the ED she had no nausea/ vomiting, fever/chills, weakness, numbness or difficulty standing though did admit to some decreased visual acuity from surgery. Furthering questioning patient she was nothing by mouth approximately 12 hours prior to surgery as her surgery was delayed. Although her symptoms were resolving while in the ED she was admitted into observation IV fluids and close monitoring. Posterior Head Pain Score (Numeric/FACES): 5 - Related Data Allergies/Adverse Reactions: Allergies Allergy/AdvReac Type Severity Reaction Status Date / Time codeine Allergy Rash Verified 10/09/18 17:14 minocycline Allergy Cannot Verified 10/09/18 17:14 Remember Penicillins Allergy Rash Verified 10/09/18 17:14 ear drops Allergy Rash Uncoded 10/09/18 17:14 METAL Allergy Rash Uncoded 10/09/18 17:14 Home Medications: Home Meds Aspirin [Halfprin] 81 mg PO DAILY 01/23/14 [History] Donepezil HCl [Aricept] 20 mg PO DAILY 01/23/14 [History] Lactobacillus Combination No.4 [Probiotic] 4 mg PO DAILY 01/23/14 [History] Cyanocobalamin (Vitamin B-12) [B-12] 500 mcg PO DAILY 11/08/16 [History] Ketoconazole [Nizoral 2% Shampoo] 1 applic TOP DAILY 11/08/16 [History] Loperamide [Imodium] 2 mg PO DAILY 11/08/16 [History] Cholecalciferol (Vitamin D3) [Vitamin D] 2,000 unit PO DAILY 01/14/17 [History] Furosemide 40 mg PO BID 01/14/17 [History] Mirtazapine 45 mg PO BEDTIME 01/14/17 [History] [place]-3/DHA/Epa/Fish Oil [Fish Oil 1,000 mg Softgel] 1,000 mg PO DAILY 01/14/17 [History] Pramipexole Di-HCl [Mirapex] 1.5 mg PO DAILY@1700 01/14/17 [History] Primidone 150 mg PO BID 01/14/17 [History] Propranolol [Inderal LA] 60 mg PO BEDTIME 01/14/17 [History] Vit A/Vit C/Vit E/Zinc/Copper [Preservision Areds Softgel] 1 tab PO BID [History] Acetaminophen [Tylenol Extra Strength] 500 mg PO Q6H tablet 02/03/17 [Rx] Calcium Carbonate 600 mg PO DAILY 10/09/18 [History] Clopidogrel [Plavix] 75 mg PO DAILY 10/09/18 [History] DULoxetine HCl [Duloxetine HCl] 60 mg PO DAILY 10/09/18 [History] Diphenoxylate HCl/Atropine [Diphenoxylate-Atrop 2.5-0.025] 1 each PO ASDIRECTED PRN MDD 8 10/09/18 [History] Levothyroxine 25 mcg PO DAILY 10/09/18 [History] Losartan [Cozaar] 100 mg PO DAILY 10/09/18 [History] Meloxicam 7.5 mg PO DAILY 10/09/18 [History] Memantine HCl 10 mg PO BID 10/09/18 [History] Non-Formulary Medication [NF Drug] 1 drop EYELF QID 10/09/18 [History] Potassium Chloride [Klor-Con 10] 10 meq PO BID 10/09/18 [History] Rosuvastatin Calcium 20 mg PO BEDTIME 10/09/18 [History] Omeprazole 20 mg PO DAILY #90 tablet. 10/10/18 [Rx] Past Medical History HEENT History: Reports: Cataract, Impaired Vision, Macular Degeneration, Other ( See Below) Other HEENT History: myopia Cardiovascular History: Reports: High Cholesterol, Heart Murmur, Hypertension Gastrointestinal History: Reports: Chronic Diarrhea, Other (See Below) Other Gastrointestinal History: lymphocytic colitis [employer] History: Reports: Other OB/BYN History: 3 children Musculoskeletal History: Reports: Arthritis, Other (See Below), Osteoarthritis Other Musculoskeletal History: knee pain, bilateral leg pain Neurological History: Reports: Other (See Below) Other Neuro History: Restless Leg Syndrome, Essential Tremor Psychiatric History: Reports: Depression, Other (See Below) Other Psychiatric History: Mild Cognitive Impairment Endocrine/Metabolic History: Reports: Osteoporosis, Osteopenia Hematologic History: Reports: Other (See Below) Other Hematologic History: elevated ferritin Dermatologic History: Reports: Other (See Below) Other Dermatologic History: seborrheic keratoses - Infectious Disease History Infectious Disease History: Reports: Measles - Past Surgical History Cardiovascular Surgical History: Reports: None GI Surgical History: Reports: Other (See Below) Other GI Surgeries/Procedures: stimulation implant Social & Family History - Family History Family Medical History: Noncontributory HEENT: Reports: None Cardiac: Reports: None Respiratory: Reports: None GI: Reports: None : Reports: None Musculoskeletal: Reports: Back pain, Chronic Neurological: Reports: None Psychiatric: Reports: None - Tobacco Use Smoking Status *Q: Never Smoker - Caffeine Use Caffeine Use: Reports: Coffee - Recreational Drug Use Recreational Drug Use: No H&P Review of Systems - Review of Systems: Review Of Systems: See Below General: Denies: Fever, Chills, Malaise, Night Sweats, Decreased Appetite HEENT: Reports: Visual Changes (Left eye cataract) Pulmonary: Reports: Cough (Dry cough) Cardiovascular: Reports: Edema. Denies: Chest Pain, Dyspnea on Exertion, Lightheadedness, Syncope, Blood Pressure Problem Gastrointestinal: Reports: No Symptoms Genitourinary: Reports: No Symptoms Musculoskeletal: Reports: No Symptoms Skin: Reports: Pallor Psychiatric: Denies: Confusion Neurological: Reports: Pre-Existing Deficit, Tremors Hematologic/Lymphatic: Reports: Anemia Immunologic: Reports: No Symptoms Exam - Exam Exam: See Below - Vital Signs Vital Signs: Last Vital Signs Temp 97.0 F 10/10/18 06:43 Pulse 71 10/10/18 06:43 Resp 18 10/10/18 06:43 BP 152/66 H 10/10/18 08:57 Pulse Ox 92 L 10/10/18 06:43 Weight: 172 lb 5 oz - Exam Quality Assessment: No: Supplemental Oxygen General: Alert, Oriented, Cooperative. No: Mild Distress HEENT: EOMI, Hearing Intact, Nares Patent, Other (Dry mucous membranes) Neck: Supple, Trachea Midline, 2 Lungs: Clear to Auscultation, Normal Respiratory Effort Cardiovascular: Regular Rate, Regular Rhythm GI/Abdominal Exam: Soft Extremities: Pedal Edema (2+ chronic pedal edema left lower extremity, since hip surgery years ago) Peripheral Pulses: 2+: Radial (L), Radial (R) Skin: Dry. No: Rash - Patient Data Lab Results Last 24 hrs: Laboratory Results - last 24 hr 10/09/18 10/09/18 Range/Units 17:50 17:50 WBC 4.53 L (5.00-10.00) 10^3/uL RBC 2.87 L (3.80-5.50) 10^6/uL Hgb 10.4 L (12.0-16.0) g/dL Hct 30.8 L (37.0-47.0) % MCV 107.3 H D (82.0-92.0) fL MCH 36.2 H (27.0-31.0) pg MCHC 33.8 (32.0-36.0) g/dL RDW 14.0 (11.5-14.5) % Plt Count 111 L (150-400) 10^3/uL MPV 9.5 (7.4-10.4) fL Immature Gran % (Auto) 0.7 (0.0-5.0) % Neut % (Auto) 57.7 (50.0-70.0) % Lymph % (Auto) 30.2 (20.0-40.0) % [place] % (Auto) 7.9 (2.0-8.0) % Eos % (Auto) 3.1 H (1.0-3.0) % Baso % (Auto) 0.4 (0.0-1.0) % Immature Gran # (Auto) 0.03 (0.00-0.50) 10^3/uL Neut # (Auto) 2.61 (2.50-7.00) 10^3/uL Lymph # (Auto) 1.37 (1.00-4.00) 10^3/uL [place] # (Auto) 0.36 (0.10-0.80) 10^3/uL Eos # (Auto) 0.14 (0.10-0.30) 10^3/uL Baso # (Auto) 0.02 (0.00-0.10) 10^3/uL Sodium 142 (136-145) mmol/L Potassium 4.2 (3.3-5.3) mmol/L Chloride 105 (98-115) mmol/L Carbon Dioxide 28.5 (21.0-32.0) mmol/L Anion Gap 12.7 (5-15) mmol/L BUN 18 (6-25) mg/dL Creatinine 0.78 (0.51-1.17) mg/dL Est Cr Clr Drug Dosing 41.24 mL/min Estimated GFR (MDRD) > 60 mL/min Glucose 106 H (75 - 99) mg/dL Calcium 8.8 (8.7-10.3) mg/dL Result Diagrams: 10/09/18 17:50 10/09/18 17:50 Problem List Initiated/Reviewed/Updated: Yes Orders Last 24hrs: Active Orders 24 hr Category Date Time Status Patient Status [ADT] Routine ADT 10/09/18 18:35 Active Peripheral IV Care [RC] 0900,2100 Care 10/09/18 17:28 Active Up With Assistance [RC] ASDIRECTED Care 10/09/18 18:34 Active VTE/DVT Education [RC] PER UNIT ROUTINE Care 10/09/18 18:35 Active Vital Signs [RC] 0300,0700,1100,1500,1900,2300 Care 10/09/18 18:35 Active Heart Healthy Diet [DIET] Diet 10/10/18 Breakfast Active Acetaminophen [Tylenol Extra Strength] Med 10/09/18 21:30 Active 500 mg PO Q6H Acetaminophen [Tylenol] Med 10/09/18 18:34 Active 650 mg PO Q4H PRN Aspirin [Halfprin] Med 10/10/18 09:00 Active 81 mg PO DAILY Atropine/Diphenoxylate [Lomotil 0.025-2.5 MG] Med 10/09/18 21:30 Active 1 tab PO ASDIRECTED PRN Calcium Carbonate [Tums] Med 10/10/18 09:00 Active 500 mg PO DAILY Cholecalciferol (Vitamin D3) [Vitamin D3] Med 10/10/18 09:00 Active 50 mcg PO DAILY Clopidogrel [Plavix] Med 10/10/18 09:00 Active 75 mg PO DAILY Cyanocobalamin (Vitamin B12) [Vitamin B12] Med 10/10/18 09:00 Active 500 mcg PO DAILY DULoxetine [Cymbalta] Med 10/10/18 09:00 Active 60 mg PO DAILY Donepezil [Aricept] Med 10/10/18 09:00 Active 20 mg PO DAILY Furosemide [Lasix] Med 10/10/18 09:00 Active 40 mg PO BID Ibuprofen [Motrin] Med 10/09/18 18:34 Active 600 mg PO Q6H PRN Levothyroxine Med 10/10/18 09:00 Active 25 mcg PO DAILY Loperamide [Imodium] Med 10/10/18 09:00 Active 2 mg PO DAILY Losartan [Cozaar] Med 10/10/18 09:00 Active 100 mg PO DAILY Meloxicam [Mobic] Med 10/10/18 09:00 Active 7.5 mg PO DAILY Memantine [Namenda] Med 10/10/18 09:00 Active 10 mg PO BID Mirtazapine [Remeron] Med 10/10/18 21:00 Active 45 mg PO BEDTIME Potassium Chloride [Klor-Con 10] Med 10/10/18 09:00 Active 10 meq PO BID Pramipexole [Mirapex] Med 10/10/18 17:00 Active 1.5 mg PO DAILY@1700 Primidone [Mysoline] Med 10/10/18 09:00 Active 150 mg PO BID Propranolol [Inderal LA] Med 10/10/18 21:00 Active 60 mg PO BEDTIME Rosuvastatin [Crestor] Med 10/10/18 21:00 Active 20 mg PO BEDTIME Sodium Chloride 0.9% [Normal Saline] 1,000 ml Med 10/09/18 18:45 Active IV ASDIRECTED Sodium Chloride 0.9% [Saline Flush] Med 10/09/18 19:57 Active 10 ml FLUSH Q8HR PRN Peripheral IV Insertion Adult [OM.PC] Routine Oth 10/09/18 17:28 Ordered Resuscitation Status Routine Resus Stat 10/09/18 18:34 Ordered Medication Orders Acetaminophen (Tylenol) 650 mg PO Q4H PRN PRN Reason: Pain (Mild 1-3)/fever Acetaminophen (Tylenol Extra Strength) 500 mg PO Q6H [facility] Last Admin: 10/10/18 08:56 Dose: 500 mg Admin: 10/10/18 04:30 Dose: Not Given Admin: 10/09/18 23:04 Dose: 500 mg Aspirin (Halfprin) 81 mg PO DAILY [facility] Last Admin: 10/10/18 08:55 Dose: 81 mg Calcium Carbonate/Glycine (Tums) 500 mg PO DAILY [facility] Last Admin: 10/10/18 08:55 Dose: 500 mg Cholecalciferol (Vitamin D3) 50 mcg PO DAILY [facility] Last Admin: 10/10/18 08:54 Dose: 50 mcg Clopidogrel Bisulfate (Plavix) 75 mg PO DAILY [facility] Last Admin: 10/10/18 08:56 Dose: 75 mg Cyanocobalamin (Vitamin B12) 500 mcg PO DAILY [facility] Last Admin: 10/10/18 08:57 Dose: 500 mcg Diphenoxylate HCl/Atropine (Lomotil 0.025-2.5 Mg) 1 tab PO ASDIRECTED PRN PRN Reason: Diarrhea Donepezil HCl (Aricept) 20 mg PO DAILY [facility] Last Admin: 10/10/18 08:55 Dose: 20 mg Duloxetine HCl (Cymbalta) 60 mg PO DAILY [facility] Last Admin: 10/10/18 08:54 Dose: 60 mg Furosemide (Lasix) 40 mg PO BID [facility] Last Admin: 10/10/18 08:57 Dose: 40 mg Sodium Chloride (Normal Saline) 1,000 mls @ 75 mls/hr IV ASDIRECTED [facility] Last Admin: 10/09/18 19:38 Dose: 75 mls/hr Ibuprofen (Motrin) 600 mg PO Q6H PRN PRN Reason: Pain (mild 1-3) Levothyroxine Sodium (Levothyroxine) 25 mcg PO DAILY [facility] Last Admin: 10/10/18 08:56 Dose: 25 mcg Loperamide HCl (Imodium) 2 mg PO DAILY [facility] Last Admin: 10/10/18 08:55 Dose: 2 mg Losartan Potassium (Cozaar) 100 mg PO DAILY [facility] Last Admin: 10/10/18 08:57 Dose: 100 mg Meloxicam (Mobic) 7.5 mg PO DAILY [facility] Last Admin: 10/10/18 08:52 Dose: 7.5 mg Memantine (Namenda) 10 mg PO BID [facility] Last Admin: 10/10/18 08:57 Dose: 10 mg Mirtazapine (Remeron) 45 mg PO BEDTIME [facility] Last Admin: 10/09/18 23:04 Dose: 45 mg Potassium Chloride (Klor-Con 10) 10 meq PO BID [facility] Last Admin: 10/10/18 08:56 Dose: 10 meq Pramipexole Dihydrochloride (Mirapex) 1.5 mg PO DAILY@1700 [facility] Primidone (Mysoline) 150 mg PO BID [facility] Last Admin: 10/10/18 09:00 Dose: 150 mg Propranolol HCl (Inderal La) 60 mg PO BEDTIME [facility] Rosuvastatin Calcium (Crestor) 20 mg PO BEDTIME [facility] Sodium Chloride (Saline Flush) 10 ml FLUSH Q8HR PRN PRN Reason: IV Use Assessment/Plan Comment:: Please use this history and physical as a combined discharge summary History of present illness Very pleasant 83 YO FEMALE WAS ADMITTED THROUGH THE ED [facility] when she started having headaches (which she states are rare) neck discomfort and some lightheadedness started approximately 4pm the day of admission. She was ~24 hrs post cataract surgery and admitted recovering well even going shopping thereafter in [place] however she started developing mild dizziness (denied room spinning) that day with accompanying occipital headache and neck pain. She states her family thought she was quite pale. In the ED she had no nausea/ vomiting, fever/chills, weakness, numbness or difficulty standing though did admit to some decreased visual acuity from surgery. Furthering questioning patient she was nothing by mouth approximately 12 hours prior to surgery as her surgery was delayed. Although her symptoms were resolving while in the ED she was admitted into observation IV fluids and close monitoring. Social Lives in [facility], loss spouse ~4yrs ago, good family/social support with close monitoring capability ED findings head CT, no acute findings Electrolytes normal Hgb 10.4 Primary hospital problems Dehydration, improving dizziness/headaches, resolved Pertinent Chronic/stable problems Heart failure hypertension Hyperlipidemia Dementia Medication adjustments/changes Add PPI, 2/2 Age and DAPT reduce lasix to 20mg daily until f/u Disposition Patient's condition likely due to 12 hours NPO status prior to surgery, Anticipate discharge early afternoon, hold Lasix, ambulate halls, IV fluids, PO fluids, Orthostatic vital signs. - Mortality Measure Prognosis:: Good
[2018-10-10] MEDS ORDERED: Propranolol 60 MG Cap.ER PO ONE (14:23)
[2018-10-10 14:53] VITALS: BP 149/80
[2018-10-10] MEDS ORDERED: Pramipexole 0.5 MG Tab PO SCH (17:00)
[2018-10-10] MEDS ORDERED: Mirtazapine 15 MG Tab PO SCH (21:00)
[2018-10-10] MEDS ORDERED: Propranolol 60 MG Cap.ER PO SCH (21:00)
[2018-10-10] MEDS ORDERED: Rosuvastatin 10 MG Tab PO SCH (21:00)
== END 2018-10-10 15:30 | disposition home or self-care (01) ==
LOC: KA.ED 17:02 → KA.MS 18:33
PROVIDERS: ADMIT Physician Assistant Medical; ATTEND Physician Assistant Medical
DX: G44.209 Tension-type headache, unspecified, not intractable (principal); R42 Dizziness and giddiness; M54.2 Cervicalgia; E86.0 Dehydration; I11.0 Hypertensive heart disease with heart failure; I50.9 Heart failure, unspecified; E78.00 Pure hypercholesterolemia, unspecified; F03.90 Unspecified dementia, unspecified severity, without behavioral disturbance, psychotic disturbance, mood disturbance, and anxiety; Z88.5 Allergy status to narcotic agent; Z88.1 Allergy status to other antibiotic agents; Z88.0 Allergy status to penicillin; Z88.8 Allergy status to other drugs, medicaments and biological substances; Z91.09 Other allergy status, other than to drugs and biological substances; Z98.42 Cataract extraction status, left eye; Z98.41 Cataract extraction status, right eye; Z79.82 Long term (current) use of aspirin; Z79.1 Long term (current) use of non-steroidal anti-inflammatories (NSAID); Z79.899 Other long term (current) drug therapy
CPT/HCPCS: 36415; 70450; 80048; 85025; 96361; 96374; 96375; 99284; 99285-25; A9270-GY; G0378; J1200; J1885; J2765; J7030

== ENCOUNTER 2022-11-01 11:05 | Emergency (ER) | payer MEDICARE, OTHER ==
[2022-11-01] MEDS ORDERED: Sodium Chloride 0.9% 10 ML Syringe FLUSH PRN (11:17)
[2022-11-01 11:21] VITALS: BP 129/81; PULSE 69
[2022-11-01 11:39] LABS: BASOPHILS ABSOLUTE AUTO 0.04 10^3/uL (0.00-0.10); BASOPHILS PERCENT AUTO 0.6 % (0.0-1.0); EOSINOPHILS ABSOLUTE AUTO 0.26 10^3/uL (0.10-0.30); EOSINOPHILS PERCENT AUTO 4.1 % (1.0-3.0); HEMATOCRIT 34.5 % (37.0-47.0); HEMOGLOBIN 10.6 g/dL (12.0-16.0); IMMATURE GRAN ABSOLUTE AUTO 0.07 10^3/uL (0.00-0.50); IMMATURE GRAN PERCENT AUTO 1.1 % (0.0-5.0); LYMPHOCYTES ABSOLUTE AUTO 1.95 10^3/uL (1.00-4.00); LYMPHOCYTES PERCENT AUTO 30.9 % (20.0-40.0); MEAN CORPUSCULAR HEMOGLOBIN 31.5 pg (27.0-31.0); MEAN CORPUSCULAR HGB CONC 30.7 g/dL (32.0-36.0); MEAN CORPUSCULAR VOLUME 102.4 fL (82.0-92.0); MEAN PLATELET VOLUME 9.6 fL (7.4-10.4); MONOCYTES ABSOLUTE AUTO 0.51 10^3/uL (0.10-0.80); MONOCYTES PERCENT AUTO 8.1 % (2.0-8.0); NEUTROPHILS ABSOLUTE AUTO 3.48 10^3/uL (2.50-7.00); NEUTROPHILS PERCENT AUTO 55.2 % (50.0-70.0); PLATELET COUNT,PLT 163 10^3/uL (150-400); RED BLOOD CELL COUNT 3.37 10^6/uL (3.80-5.50); RED CELL DISTRIBUTION WIDTH 14.4 % (11.5-14.5); WHITE BLOOD CELL COUNT,WBC 6.31 10^3/uL (5.00-10.00)
[2022-11-01 11:57] LABS: ALANINE AMINOTRANSFERASE,ALT 24 U/L (14-63); ALKALINE PHOSPHATASE 114 U/L (46-116); ASPARTATE AMNIOTRANSFERASE,AST 17 U/L (15-37); BILIRUBIN TOTAL 0.2 mg/dL (0.2-1.0); BLOOD UREA NITROGEN,BUN 25 mg/dL (7-18); CALCIUM 8.9 mg/dL (8.7-10.3); CARBON DIOXIDE,CO2 30.5 mmol/L (21.0-32.0); CHLORIDE,CL 101 mmol/L (98-107); CREATININE 1.05 mg/dL (0.51-1.17); GLUCOSE RANDOM 111 mg/dL (70-140); LACTIC ACID 0.9 mmol/L (0.4-2.0); POTASSIUM,K 5.5 mmol/L (3.5-5.1); PROTEIN TOTAL,TP 6.8 g/dL (6.4-8.2); SODIUM,NA 139 mmol/L (136-145)
[2022-11-01 11:58] LABS: B-TYPE NATRIURETIC PEPTIDE,BNP 77 pg/mL (0-100); ESTIMATED GFR 51 mL/min (>=60)
[2022-11-01] MEDS: Albuterol/Ipratropium 3.0-0.5 MG/3 ML Neb Soln NEB ONE (12:19)
[2022-11-01 12:57] LABS: INFLUENZA A NAA NEGATIVE (NEGATIVE); INFLUENZA B NAA NEGATIVE (NEGATIVE); RESPIRATORY SYNCYTIAL VIR NAA NEGATIVE (NEGATIVE)
[2022-11-01] MEDS: Sodium Chloride 0.9% 100 ML IV SCH (12:57)
[2022-11-01] MEDS: Iopamidol 755 Mg/ML 100 ML Bottle IV ONE (12:57)
[2022-11-01 12:58] LABS: CORONAVIRUS COVID-19 NAA NEGATIVE (NEGATIVE)
== END 2022-11-01 14:05 | disposition home or self-care (01) ==
LOC: KA.ED 11:10
DX: R07.89 Other chest pain (principal); R05.2 Subacute cough; R79.89 Other specified abnormal findings of blood chemistry; E78.00 Pure hypercholesterolemia, unspecified; I10 Essential (primary) hypertension; Z95.0 Presence of cardiac pacemaker; Z88.5 Allergy status to narcotic agent; Z88.0 Allergy status to penicillin; Z88.1 Allergy status to other antibiotic agents; Z88.8 Allergy status to other drugs, medicaments and biological substances; Z79.82 Long term (current) use of aspirin; Z79.899 Other long term (current) drug therapy; Z20.822 Contact with and (suspected) exposure to COVID-19
CPT/HCPCS: 0241U; 36415; 71046; 71275; 80053; 83605; 83880; 84484; 85025; 85379; 87040; 93005; 93010; 94640; 99284; 99285; J3490; J7620-GY; Q9967